=== PATIENT | male | born 1955 | race Caucasian/White ===

== ENCOUNTER 2020-06-01 09:02 | Outpatient (REF) | payer OTHER, SELFPAY ==
[2020-06-01 12:40] LABS: Alanine Aminotransferase 39 U/L (0-40); Albumin Level 4.2 g/dL (3.5-5.0); Alkaline Phosphatase 119 U/L (39-117); Anion Gap 12 (12-20); Aspartate Amino Transferase 32 U/L (5-37); Bilirubin Total 0.6 mg/dL (0.0-1.0); Blood Urea Nitrogen 26 mg/dL (9-16); Calcium 9.1 mg/dL (8.4-10.2); Carbon Dioxide 29 mmol/L (22-29); Chloride 102 mmol/L (96-108); Cholesterol 175 mg/dL; Estimated Glomerular Filt Rate 57; Glucose Fasting 228 mg/dL (60-99); HDL Cholesterol 33 mg/dL; Potassium 4.2 mmol/l (3.3-5.1); Sodium 139 mmol/L (135-145); TSH reflex Free T4 1.25 mIU/mL (0.32-4.0); Total Protein 6.8 g/dL (6.5-8.0); Triglycerides 449 mg/dL
[2020-06-01 12:50] LABS: Creatinine Urine 146.41 mg/dL; Microalbum/Creatinine Ratio Ur 314.8 ug/mg cr
== END 2020-06-01 09:03 | disposition home or self-care (01) ==
LOC: HO.WFDLDS 09:02
PROVIDERS: Visit Provider Internal Medicine
DX: Z00.00 Encounter for general adult medical examination without abnormal findings (principal); I12.9 Hypertensive chronic kidney disease with stage 1 through stage 4 chronic kidney disease, or unspecified chronic kidney disease; E11.22 Type 2 diabetes mellitus with diabetic chronic kidney disease; N18.30 Chronic kidney disease, stage 3 unspecified; E78.5 Hyperlipidemia, unspecified; K75.81 Nonalcoholic steatohepatitis (NASH)
CPT/HCPCS: 80053; 80061; 82043; 84443

== ENCOUNTER 2020-08-30 08:26 | Outpatient (REF) | payer OTHER, SELFPAY ==
[2020-08-30 11:35] LABS: Anion Gap 15 (12-20); Blood Urea Nitrogen 29 mg/dL (9-16); Calcium 9.4 mg/dL (8.4-10.2); Carbon Dioxide 26 mmol/L (22-29); Chloride 100 mmol/L (96-108); Cholesterol 171 mg/dL; Estimated Glomerular Filt Rate 54; Glucose Fasting 192 mg/dL (60-99); HDL Cholesterol 33 mg/dL; LDL Cholesterol Calculated 76 mg/dl; Potassium 3.8 mmol/L (3.3-5.1); Sodium 137 mmol/L (135-145); Triglycerides 310 mg/dL
== END 2020-08-30 08:27 | disposition home or self-care (01) ==
LOC: HO.WFDLDS 08:26
PROVIDERS: Visit Provider Family Medicine
DX: Z00.00 Encounter for general adult medical examination without abnormal findings (principal); E11.9 Type 2 diabetes mellitus without complications
CPT/HCPCS: 36415; 80048; 80061

== ENCOUNTER 2020-09-04 10:50 | Outpatient (REF) | payer OTHER, SELFPAY ==
[2020-09-04 11:41] LABS: Creatinine Urine 224.28 mg/dL; Microalbum/Creatinine Ratio Ur 161.8 ug/mg cr
== END 2020-09-04 10:51 | disposition home or self-care (01) ==
LOC: HO.LNP 10:50
PROVIDERS: Visit Provider Family Medicine
DX: E11.9 Type 2 diabetes mellitus without complications (principal); I10 Essential (primary) hypertension
CPT/HCPCS: 82043

== ENCOUNTER 2020-11-24 08:26 | Outpatient (REF) | payer OTHER, SELFPAY ==
[2020-11-24 11:48] LABS: Alanine Aminotransferase 52 U/L (0-40); Albumin Level 4.3 g/dL (3.5-5.0); Alkaline Phosphatase 85 U/L (39-117); Anion Gap 13 (12-20); Aspartate Amino Transferase 39 U/L (5-37); Bilirubin Total 0.5 mg/dL (0.0-1.0); Blood Urea Nitrogen 32 mg/dL (9-16); Calcium 9.6 mg/dL (8.4-10.2); Carbon Dioxide 27 mmol/L (22-29); Chloride 103 mmol/L (96-108); Cholesterol 155 mg/dL; Estimated Glomerular Filt Rate 54; Glucose Random 164 mg/dL (60-115); HDL Cholesterol 30 mg/dL; LDL Cholesterol Calculated 73 mg/dl; Sodium 139 mmol/L (135-145); Total Protein 6.7 g/dL (6.5-8.0); Triglycerides 262 mg/dL
== END 2020-11-24 08:27 | disposition home or self-care (01) ==
LOC: HO.WFDLDS 08:26
PROVIDERS: Visit Provider Family Medicine
DX: Z00.00 Encounter for general adult medical examination without abnormal findings (principal); I10 Essential (primary) hypertension; E78.1 Pure hyperglyceridemia
CPT/HCPCS: 36415; 80053; 80061

== ENCOUNTER 2021-02-23 07:48 | Outpatient (REF) | payer OTHER, SELFPAY ==
[2021-02-23 12:14] LABS: Alanine Aminotransferase 51 U/L (0-40); Albumin Level 4.5 g/dL (3.5-5.0); Alkaline Phosphatase 88 U/L (39-117); Anion Gap 15 (12-20); Aspartate Amino Transferase 43 U/L (5-37); Bilirubin Total 0.6 mg/dL (0.0-1.0); Blood Urea Nitrogen 31 mg/dL (9-16); Calcium 10.2 mg/dL (8.4-10.2); Carbon Dioxide 26 mmol/L (22-29); Chloride 103 mmol/L (96-108); Cholesterol 168 mg/dL; Estimated Glomerular Filt Rate 46; Glucose Fasting 164 mg/dL (60-99); HDL Cholesterol 31 mg/dL; LDL Cholesterol Calculated 77 mg/dl; Potassium 4.7 mmol/L (3.3-5.1); Sodium 139 mmol/L (135-145); Total Protein 7.2 g/dL (6.5-8.0); Triglycerides 304 mg/dL
== END 2021-02-23 07:49 | disposition home or self-care (01) ==
LOC: HO.WFDLDS 07:48
PROVIDERS: Visit Provider Family Medicine
DX: Z00.00 Encounter for general adult medical examination without abnormal findings (principal); E78.1 Pure hyperglyceridemia; E11.9 Type 2 diabetes mellitus without complications
CPT/HCPCS: 36415; 80053; 80061

== ENCOUNTER 2021-05-28 08:05 | Outpatient (REF) | payer OTHER, SELFPAY ==
[2021-05-28 12:44] LABS: Anion Gap 18 (12-20); Blood Urea Nitrogen 57 mg/dL (9-16); Calcium 9.8 mg/dL (8.4-10.2); Carbon Dioxide 23 mmol/L (22-29); Chloride 102 mmol/L (96-108); Estimated Glomerular Filt Rate 38; Glucose Random 129 mg/dL (60-115); Potassium 4.1 mmol/L (3.3-5.1); Sodium 139 mmol/L (135-145)
== END 2021-05-28 08:06 | disposition home or self-care (01) ==
LOC: HO.WFDLDS 08:05
PROVIDERS: Visit Provider Family Medicine
DX: Z00.00 Encounter for general adult medical examination without abnormal findings (principal); I10 Essential (primary) hypertension
CPT/HCPCS: 36415; 80048

== ENCOUNTER 2021-07-02 09:45 | Outpatient (REF) | payer OTHER, SELFPAY ==
[2021-07-02 12:14] LABS: Anion Gap 15 (12-20); Blood Urea Nitrogen 40 mg/dL (9-16); Calcium 10.2 mg/dL (8.4-10.2); Carbon Dioxide 24 mmol/L (22-29); Chloride 102 mmol/L (96-108); Estimated Glomerular Filt Rate 37; Glucose Random 135 mg/dL (60-115); Sodium 137 mmol/L (135-145)
== END 2021-07-02 09:46 | disposition home or self-care (01) ==
LOC: HO.WFDLDS 09:45
PROVIDERS: Visit Provider Family Medicine
DX: Z00.00 Encounter for general adult medical examination without abnormal findings (principal); I10 Essential (primary) hypertension
CPT/HCPCS: 36415; 80048

== ENCOUNTER 2021-07-16 08:14 | Outpatient (REF) | payer OTHER, SELFPAY ==
[2021-07-16 11:36] LABS: Anion Gap 11 (12-20); Blood Urea Nitrogen 33 mg/dL (9-16); Carbon Dioxide 27 mmol/L (22-29); Chloride 104 mmol/L (96-108); Estimated Glomerular Filt Rate 42; Glucose Random 175 mg/dL (60-115); Potassium 4.3 mmol/L (3.3-5.1); Sodium 138 mmol/L (135-145)
== END 2021-07-16 08:15 | disposition home or self-care (01) ==
LOC: HO.WFDLDS 08:14
PROVIDERS: Visit Provider Family Medicine
DX: Z00.00 Encounter for general adult medical examination without abnormal findings (principal); I10 Essential (primary) hypertension
CPT/HCPCS: 36415; 80048

== ENCOUNTER 2021-09-06 08:42 | Outpatient (REF) | payer OTHER, SELFPAY ==
[2021-09-06 11:04] LABS: Alanine Aminotransferase 21 U/L (0-40); Albumin Level 4.1 g/dL (3.5-5.0); Alkaline Phosphatase 91 U/L (39-117); Anion Gap 10 (12-20); Aspartate Amino Transferase 21 U/L (5-37); Bilirubin Total 0.5 mg/dL (0.0-1.0); Blood Urea Nitrogen 25 mg/dL (9-16); Calcium 9.6 mg/dL (8.4-10.2); Carbon Dioxide 26 mmol/L (22-29); Chloride 104 mmol/L (96-108); Estimated Glomerular Filt Rate 49; Glucose Fasting 143 mg/dL (60-99); Potassium 4.4 mmol/L (3.3-5.1); Sodium 136 mmol/L (135-145); Total Protein 6.7 g/dL (6.5-8.0)
[2021-09-06 11:05] LABS: Estimated Average Glucose 146 mg/dL; Hemoglobin A1c % 6.7 %
== END 2021-09-06 08:43 | disposition home or self-care (01) ==
LOC: HO.WFDLDS 08:42
PROVIDERS: Visit Provider Family Medicine
DX: Z00.00 Encounter for general adult medical examination without abnormal findings (principal); N19 Unspecified kidney failure; E11.9 Type 2 diabetes mellitus without complications
CPT/HCPCS: 36415; 80053; 83036

== ENCOUNTER 2021-12-07 07:11 | Outpatient (REF) | payer OTHER, SELFPAY ==
[2021-12-07 11:48] LABS: Alanine Aminotransferase 49 U/L (0-40); Albumin Level 4.2 g/dL (3.5-5.0); Alkaline Phosphatase 104 U/L (39-117); Anion Gap 11 (12-20); Aspartate Amino Transferase 35 U/L (5-37); Bilirubin Total 0.6 mg/dL (0.0-1.0); Blood Urea Nitrogen 25 mg/dL (9-16); Calcium 9.6 mg/dL (8.4-10.2); Carbon Dioxide 23 mmol/L (22-29); Chloride 108 mmol/L (96-108); Estimated Glomerular Filt Rate 47; Glucose Fasting 115 mg/dL (60-99); Potassium 4.3 mmol/L (3.3-5.1); Sodium 138 mmol/L (135-145); Total Protein 6.8 g/dL (6.5-8.0)
[2021-12-07 12:02] LABS: Estimated Average Glucose 146 mg/dL; Hemoglobin A1c % 6.7 %
[2021-12-07 13:02] LABS: Creatinine Urine 186.05 mg/dL; Microalbum/Creatinine Ratio Ur 139.2 ug/mg cr
[2021-12-11 05:52] LABS: TS Negative Control Passed; TS Panel A 0; TS Panel B 0; TS Positive Control Passed; TSpotTB Negative (Negative)
== END 2021-12-07 07:12 | disposition home or self-care (01) ==
LOC: HO.WFDLDS 07:11
PROVIDERS: Visit Provider Family Medicine
DX: Z00.00 Encounter for general adult medical examination without abnormal findings (principal); Z11.1 Encounter for screening for respiratory tuberculosis; E11.9 Type 2 diabetes mellitus without complications; I10 Essential (primary) hypertension
CPT/HCPCS: 36415; 80053; 82043; 83036; 86481

== ENCOUNTER 2022-04-08 09:07 | Outpatient (REF) | payer OTHER, SELFPAY ==
[2022-04-08 11:16] LABS: MANUAL DIFF FLAG NO
[2022-04-08 11:36] LABS: Basophils Percent Auto 0.8 % (0-2); Eosinophils Absolute Auto 0.3 X10*3/uL (0.0-0.4); Eosinophils Percent Auto 5.9 % (0-4); Hematocrit 46.3 % (42.0-52.0); Hemoglobin 15.2 g/dl (14.0-18.0); Imm Gran Abs Auto 0.02 X10*3/uL (0.00-0.03); Imm Gran Pct Auto 0.4 % (0.0-0.4); Lymphocytes Percent Auto 20.5 % (20-40); Mean Corpuscular HGB Conc 32.8 g/dl (31.0-36.0); Mean Corpuscular Hemoglobin 29.5 pg (27.0-33.0); Mean Corpuscular Volume 89.9 fL (80.0-98.0); Mean Platelet Volume 11.3 fL (9.4-12.4); Monocytes Absolute Auto 0.4 X10*3/uL (0.1-1.2); Monocytes Percent Auto 7.9 % (2-11); Neutrophils Absolute Auto 3.3 x10*3/uL (2.0-8.3); Neutrophils Percent Auto 64.5 % (45-73); Platelet Count 163 X10*3/uL (160-400); Red Blood Count 5.15 X10*6/uL (4.60-5.80); Red Cell Distribution Width 13.9 % (11.0-16.0); White Blood Count 5.1 X10*3/uL (4.8-10.8)
[2022-04-08 11:45] LABS: Alanine Aminotransferase 30 U/L (0-40); Albumin Level 4.4 g/dL (3.5-5.0); Alkaline Phosphatase 108 U/L (39-117); Anion Gap 15 (12-20); Aspartate Amino Transferase 27 U/L (5-37); Bilirubin Total 0.7 mg/dL (0.0-1.0); Blood Urea Nitrogen 24 mg/dL (9-16); Calcium 9.7 mg/dL (8.4-10.2); Carbon Dioxide 24 mmol/L (22-29); Chloride 106 mmol/L (96-108); Cholesterol 166 mg/dL; Estimated Glomerular Filt Rate 47; Glucose Fasting 134 mg/dL (60-99); HDL Cholesterol 30 mg/dL; LDL Cholesterol Calculated 113 mg/dl; Potassium 4.7 mmol/L (3.3-5.1); Sodium 140 mmol/L (135-145); Total Protein 6.9 g/dL (6.5-8.0); Triglycerides 118 mg/dL
[2022-04-08 12:08] LABS: Prostate Specific Antigen Scr 2.81 ng/mL (<0.05-4.0); TSH reflex Free T4 0.57 uIU/mL (0.32-4.0)
[2022-04-08 12:15] LABS: Appearance Urine Clear; Color Urine Yellow; Glucose Urine UA Negative (Negative); Leukocyte Esterase Urine Moderate (2+) (Negative); Nitrite Urine Negative (Negative); PH 6.5 (5.0-9.0); UMIC TRIGGER UA YES; Urine Blood Trace (Negative); Urine Ketones Negative (Negative); Urine Protein 30 (1+) mg/dL (Neg-Trace)
[2022-04-08 12:22] LABS: Bacteria Urine 3+ (None Seen); Hyaline Casts Urine 0-2 /LPF (0-2); RBC Urine 0-2 /HPF (0-2); Squamous Epithelial Cell Urine 0-2 /HPF (0-2); WBC Urine 21-50 /HPF (0-5)
[2022-04-08 12:48] LABS: Creatinine Urine 150.09 mg/dL; Microalbum/Creatinine Ratio Ur 206.5 ug/mg cr
[2022-04-11 15:36] LABS: TS Negative Control Passed; TS Panel A 0; TS Panel B 0; TS Positive Control Passed; TSpotTB Negative (Negative)
== END 2022-04-08 09:08 | disposition home or self-care (01) ==
LOC: HO.WFDLDS 09:07
PROVIDERS: Visit Provider Family Medicine
DX: Z00.00 Encounter for general adult medical examination without abnormal findings (principal); Z12.5 Encounter for screening for malignant neoplasm of prostate; Z11.1 Encounter for screening for respiratory tuberculosis; I10 Essential (primary) hypertension
CPT/HCPCS: 36415; 80053; 80061; 81001; 81003; 82043; 84153; 84443; 85025; 86481

== ENCOUNTER 2022-07-12 09:33 | Outpatient (REF) | payer OTHER, SELFPAY ==
[2022-07-12 10:35] LABS: Appearance Urine Clear; Color Urine Yellow; Glucose Urine UA 100 mg/dL (Negative); Leukocyte Esterase Urine Moderate (2+) (Negative); Nitrite Urine Positive (Negative); PH 6.5 (5.0-9.0); UMIC TRIGGER UA YES; Urine Blood Negative (Negative); Urine Ketones Negative (Negative); Urine Protein 100 (2+) mg/dL (Neg-Trace)
[2022-07-12 10:46] LABS: Bacteria Urine 1+ (None Seen); Hyaline Casts Urine 0-2 /LPF (0-2); RBC Urine 0-2 /HPF (0-2); Squamous Epithelial Cell Urine 0-2 /HPF (0-2); WBC Urine >50 /HPF (0-5)
[2022-07-12 12:05] LABS: Creatinine Urine 179.02 mg/dL
[2022-07-12 12:18] LABS: Microalbum/Creatinine Ratio Ur 350.7 ug/mg cr
[2022-07-12 14:40] LABS: Alanine Aminotransferase 30 U/L (0-40); Albumin Level 4.5 g/dL (3.5-5.0); Alkaline Phosphatase 127 U/L (39-117); Anion Gap 13 (12-20); Aspartate Amino Transferase 24 U/L (5-37); Bilirubin Total 0.5 mg/dL (0.0-1.0); Blood Urea Nitrogen 25 mg/dL (9-16); Calcium 9.9 mg/dL (8.4-10.2); Carbon Dioxide 26 mmol/L (22-29); Chloride 107 mmol/L (96-108); Estimated Glomerular Filt Rate 46; Glucose Random 135 mg/dL (60-115); Potassium 4.7 mmol/L (3.3-5.1); Sodium 141 mmol/L (135-145); Total Protein 7.1 g/dL (6.5-8.0)
== END 2022-07-12 09:34 | disposition home or self-care (01) ==
LOC: HO.LAB 09:33
PROVIDERS: PCP Family Medicine; Visit Provider Family Medicine
DX: I10 Essential (primary) hypertension (principal); N19 Unspecified kidney failure
CPT/HCPCS: 36415; 80053; 81001; 82043

== ENCOUNTER 2022-10-11 08:58 | Outpatient (REF) | payer OTHER, SELFPAY ==
[2022-10-11 12:20] LABS: Estimated Average Glucose 192 mg/dL; Hemoglobin A1c % 8.3 %
[2022-10-11 12:59] LABS: Alanine Aminotransferase 53 U/L (0-40); Albumin Level 4.2 g/dL (3.5-5.0); Alkaline Phosphatase 122 U/L (39-117); Anion Gap 12 (12-20); Aspartate Amino Transferase 36 U/L (5-37); Bilirubin Total 0.8 mg/dL (0.0-1.0); Blood Urea Nitrogen 27 mg/dL (9-16); Calcium 9.4 mg/dL (8.4-10.2); Carbon Dioxide 26 mmol/L (22-29); Chloride 106 mmol/L (96-108); Estimated Glomerular Filt Rate 44; Glucose Fasting 193 mg/dL (60-99); Potassium 4.8 mmol/L (3.3-5.1); Sodium 139 mmol/L (135-145); Total Protein 6.5 g/dL (6.5-8.0)
== END 2022-10-11 08:59 | disposition home or self-care (01) ==
LOC: HO.WFDLDS 08:58
PROVIDERS: Visit Provider Family Medicine
DX: Z00.00 Encounter for general adult medical examination without abnormal findings (principal); E11.9 Type 2 diabetes mellitus without complications
CPT/HCPCS: 36415; 80053; 83036

== ENCOUNTER 2023-01-17 09:06 | Outpatient (REF) | payer OTHER, SELFPAY | END 2023-01-17 09:07 | disposition home or self-care (01) | LOC: HO.WFDLDS 09:06 | PROVIDERS: Visit Provider Family Medicine | DX: N19 Unspecified kidney failure (principal) | CPT/HCPCS: 36415; 80053 ==

== ENCOUNTER 2023-01-24 08:26 | Outpatient (AMB) | payer OTHER, SELFPAY ==
--- NOTE | 2023-01-24 08:35 | MHC.PC.OV ---
Vital Signs 01/24/23 08:37 Height 6 ft 1 in Weight 220 lb 2 oz BMI 29.0 BP 130/76 Blood Pressure Location Lt brachial Position Sitting Pulse 76 Pulse Source Pulse Oximeter Pulse Oximetry (%) 98 Oxygen Delivery Method Room Air Intake Visit Reasons: Follow-up diabetes and renal failure Intake Note: Patient is here for follow up on diabetes and renal failure. Allergies No Known Allergies Allergy (Verified 01/24/23 08:38) Tobacco use date assessed: 01/24/23 Fall risk assessment: No Falls in past year Last assessed Fall Risk: 01/24/23 Dental Screening Dental Screen Date: 01/24/23 Did you have a dental visit in the last 12 months?: Yes Did you have a dental problem in the last 6 months where you did not have access to dental care?: No Was dental information given to patient?: No HPI Follow-up diabetes and renal failure HPI Details 67 y/o male presents to f/u hypertension, diabetes and renal failure. Last A1c 10/14/22 7.6%. A1c today 01/24/23 is 7.8%. He is on Trulicity 1.5mg, glipizide 20mg, and metformin 500mg b.i.d. Labs were drawn 01/17/23. Reviewed labs with pt. Creatinine level 1.41 and had improved from 1.56. Pt states he gets some exercise and watches the sugars/starches in his diet. [facility] Surgical History History of kidney stones Family History Father Heart problem Mother No problems noted. Brother No problems noted. Brother No problems noted. Son No problems noted. Sister No problems noted. Social History Housing: House Patient Tobacco Use Status: Never used Tobacco e-Cigarette/Vaping Use: Never Used Second Hand Smoke Exposure: No service: No Current occupational status: retired Current occupational exposures/hazards: No Cognitive needs: No Hearing needs: No Vision needs: No Questionnaire Thrive Questionnaire Date Thrive assessed: 07/16/22 FREDI-7 AMB Questionnaire FREDI-7 Date FREDI - 7 assessed: 01/03/23 Source: Developed by Drs. Satinder Gaffney, Kristi Cedeno, Ryan Austin and colleagues, with an educational milagros from [employer]. Review of Systems Const Denies chills, Denies fatigue, Denies fever(s), Denies headache(s) and Denies weakness ENT Denies dizziness and Denies headache(s) Card Denies chest pain, Denies lightheadedness, Denies dyspnea and Denies other (Palpitations) Resp Denies cough, Denies dyspnea, Denies wheezing and Denies other ( shortness of breath) Musc Denies numbness and Denies tingling Neuro Denies dizziness, Denies headache(s), Denies numbness, Denies tingling, Denies paresthesias and Denies weakness Psych Denies anxiety and Denies depression Endo Denies fatigue Aller/Immun Denies wheezing Physical exam (Primary Care) Vital Signs: Last Vital Signs Pulse 76 01/24/23 08:37 BP 130/76 01/24/23 08:37 Pulse Ox 98 01/24/23 08:37 Oxygen Delivery Method Room Air 01/24/23 08:37 BMI result Body Mass Index 29.0 Tobacco/Smoking Status: Tobacco use Status Tobacco use date assessed 01/24/23 01/24/23 08:40 Patient Tobacco Use Status Never used Tobacco 01/24/23 08:37 e-Cigarette/Vaping Use Never Used 01/24/23 08:37 Thrive Assessment: Date of Thrive Assessment Date Thrive assessed 07/16/22 01/24/23 08:37 Const General: no acute distress and well developed Nutritional Appearance: well nourished Orientation/consciousness: patient oriented x3 [facility] Head: Yes normocephalic and Yes atraumatic Eyes General: appearance normal, both eyes and all related structures Pupils: Equal, round and reactive pupils present EOM: EOMs intact bilaterally Resp Effort & Inspection: normal respiratory effort Auscultation: clear to auscultation bilaterally Cardio Rate: regular rate Rhythm: regular rhythm Heart sounds: S1 normal heart sound present, S2 normal heart sound present, no gallops, no murmurs and no rubs Neuro General: patient oriented x3 and gait normal Cranial nerves: Yes Equal, round and reactive pupils present Psych Affect: normal affect Results AMB Hemoglobin A1c AMB Hemoglobin A1c 7.8 % Last Edit by Marielos Castro CMA on 01/24/23 08:52 Results Reviewed Results Reviewed: Laboratory Last Values Hgb A1c (Clinic) 7.8 % (4.0-6.0) H 01/24/23 08:49 Assessment and Plan Assessment & Plan (1) Essential hypertension: Code(s): I10 - Essential (primary) hypertension Plan: Blood pressure is controlled. Goal is less than 140/90 Continue current medication regimen (2) Diabetes type 2, controlled: Code(s): E11.9 - Type 2 diabetes mellitus without complications Plan: A1c 7.8% is still above goal. Goal is less than 7.0% Have been decreasing his metformin due to rising creatinine levels. Had increased his Trulicity. Now taking 4.5 mg weekly Will add Farxiga. (3) Renal failure: Code(s): N19 - Unspecified kidney failure Plan: Creatinine level improving Renal function appears stable and he is followed by Nephrology Follow-up with nephrology as recommended Orders: Orders Comprehensive [place]. Panel Fast Today Z00.00 - Encounter for general adult medical examination without abnormal findings Lipid Panel Today Z00.00 - Encounter for general adult medical examination without abnormal findings Prostate Specific Antigen Scr Today Z12.5 - Encounter for screening for malignant neoplasm of prostate TSH reflex Free T4 Today Z00.00 - Encounter for general adult medical examination without abnormal findings Microalbumin, Random (w Creat) Today I10 - Essential (primary) hypertension Complete Blood Count Auto Diff Today Z00.00 - Encounter for general adult medical examination without abnormal findings UA and rflx microscopic Today Z00.00 - Encounter for general adult medical examination without abnormal findings AMB Hemoglobin A1c Today Z13.9 - Encounter for screening, unspecified Medications: New dapagliflozin propanediol (Farxiga) 5 mg PO QAM 30 tabs 2RF 30 days Coding Level of Care Code Est Pt Level 4 (23518) Diagnoses Essential hypertension I10 Diabetes type 2, controlled E11.9 Renal failure N19
[2023-01-24 08:37] VITALS: BP 130/76; PULSE 76; O2SAT 98; BMI 29.0
== END 2023-01-24 09:09 | disposition home or self-care (01) ==
PROVIDERS: Visit Provider Family Medicine
DX: I10 Essential (primary) hypertension (principal); E11.9 Type 2 diabetes mellitus without complications; N19 Unspecified kidney failure; Z13.9 Encounter for screening, unspecified
CPT/HCPCS: 83036; 99214

== ENCOUNTER 2023-04-24 08:35 | Outpatient (REF) | payer OTHER, SELFPAY ==
[2023-04-24 11:39] LABS: MANUAL DIFF FLAG NO
[2023-04-24 11:48] LABS: Appearance Urine Clear; Color Urine Yellow; Glucose Urine UA >=1000 mg/dL (Negative); Leukocyte Esterase Urine Small (1+) (Negative); Nitrite Urine Positive (Negative); Specific Gravity - Urine >= 1.030 (1.005-1.025); UMIC TRIGGER UA YES; Urine Blood Negative (Negative); Urine Ketones Negative (Negative); Urine Protein 30 (1+) mg/dL (Neg-Trace)
[2023-04-24 11:51] LABS: Basophils Percent Auto 0.7 % (0-2); Eosinophils Absolute Auto 0.2 X10*3/uL (0.0-0.4); Eosinophils Percent Auto 3.7 % (0-4); Hematocrit 48.3 % (42.0-52.0); Imm Gran Abs Auto 0.02 X10*3/uL (0.00-0.03); Imm Gran Pct Auto 0.4 % (0.0-0.4); Lymphocytes Absolute Auto 1.4 X10*3/uL (1.2-4.9); Lymphocytes Percent Auto 25.6 % (20-40); Mean Corpuscular HGB Conc 33.1 g/dl (31.0-36.0); Mean Corpuscular Hemoglobin 29.9 pg (27.0-33.0); Mean Corpuscular Volume 90.1 fL (80.0-98.0); Mean Platelet Volume 10.8 fL (9.4-12.4); Monocytes Absolute Auto 0.5 X10*3/uL (0.1-1.2); Monocytes Percent Auto 9.6 % (2-11); Neutrophils Absolute Auto 3.3 x10*3/uL (2.0-8.3); Platelet Count 166 X10*3/uL (160-400); Red Blood Count 5.36 X10*6/uL (4.60-5.80); Red Cell Distribution Width 13.6 % (11.0-16.0); White Blood Count 5.4 X10*3/uL (4.8-10.8)
[2023-04-24 11:53] LABS: Bacteria Urine 1+ (None Seen); Hyaline Casts Urine 0-2 /LPF (0-2); RBC Urine 0-2 /HPF (0-2); Squamous Epithelial Cell Urine 0-2 /HPF (0-2); WBC Urine 21-50 /HPF (0-5)
[2023-04-24 12:13] LABS: Alanine Aminotransferase 42 U/L (0-40); Albumin Level 4.4 g/dL (3.5-5.0); Alkaline Phosphatase 107 U/L (39-117); Anion Gap 15 (12-20); Aspartate Amino Transferase 33 U/L (5-37); Bilirubin Total 0.5 mg/dL (0.0-1.0); Blood Urea Nitrogen 27 mg/dL (9-16); Carbon Dioxide 23 mmol/L (22-29); Chloride 106 mmol/L (96-108); Cholesterol 161 mg/dL (<200); Estimated Glomerular Filt Rate 43; Glucose Fasting 138 mg/dL (60-99); HDL Cholesterol 30 mg/dL (>40); LDL Cholesterol Calculated 95 mg/dL (<100); Potassium 4.2 mmol/L (3.3-5.1); Sodium 140 mmol/L (135-145); Total Protein 7.4 g/dL (6.5-8.0); Triglycerides 180 mg/dL (<150)
[2023-04-24 12:23] LABS: Prostate Specific Antigen Scr 4.26 ng/mL (<0.05-4.0)
[2023-04-24 12:33] LABS: TSH reflex Free T4 1.37 uIU/mL (0.32-4.0)
[2023-04-24 13:23] LABS: Creatinine Urine 115.77 mg/dL; Microalbum/Creatinine Ratio Ur 205.5 ug/mg cr (<30)
== END 2023-04-24 08:36 | disposition home or self-care (01) ==
LOC: HO.WFDLDS 08:35
PROVIDERS: Visit Provider Family Medicine
DX: Z00.00 Encounter for general adult medical examination without abnormal findings (principal); I10 Essential (primary) hypertension; Z12.5 Encounter for screening for malignant neoplasm of prostate
CPT/HCPCS: 36415; 80053; 80061; 81001; 82043; 82570; 84153; 84443; 85025

== ENCOUNTER 2023-06-03 15:20 | Outpatient (REF) | payer OTHER, SELFPAY ==
[2023-06-04 12:13] LABS: Appearance Urine Clear; Color Urine Yellow; Glucose Urine UA >=1000 mg/dL (Negative); Leukocyte Esterase Urine Trace (Negative); Nitrite Urine Positive (Negative); Specific Gravity - Urine >= 1.030 (1.005-1.025); UMIC TRIGGER UA YES; Urine Blood Negative (Negative); Urine Ketones Negative (Negative); Urine Protein 30 (1+) mg/dL (Neg-Trace)
[2023-06-04 12:15] LABS: Bacteria Urine Trace (None Seen); Hyaline Casts Urine 0-2 /LPF (0-2); RBC Urine 0-2 /HPF (0-2); Squamous Epithelial Cell Urine 0-2 /HPF (0-2); WBC Urine 21-50 /HPF (0-5)
== END 2023-06-03 15:21 | disposition home or self-care (01) ==
LOC: HO.WFDLNP 15:20
PROVIDERS: Visit Provider Family Medicine
DX: R82.71 Bacteriuria (principal)
CPT/HCPCS: 81001; 81003; 87086; 87088; 87186

== ENCOUNTER 2023-06-30 09:49 | Outpatient (AMB) | payer OTHER, SELFPAY ==
--- NOTE | 2023-06-30 09:55 | HO.NEPHOV_ITS ---
HPI HPI Comments History of Present Illness Details I had the pleasure of seeing Mr Cote in follow-up of his chronic kidney disease stage 3. He has diabetes for close to 15 years. His hemoglobin A1c had been 7. Since he was started on Trulicity his hemoglobin A1c is getting better. He has hypertension for some time and has been on lisinopril. He has cut back sodium in the diet. He does not check his blood sugar daily. Has no history of significant proteinuria, neuropathy or retinopathy. He has history of nephrolithiasis (calcium oxalate). He is not taking nonsteroidal anti- inflammatory medications. He denies any history of coronary artery disease, chest pain, congestive heart failure, CVA or history of any prostate issues. He feels well. [facility] Medical History (Updated 06/30/23 @ 10:27 by Armin Mims MD) Chronic kidney disease, stage 3a Essential hypertension Surgical History History of kidney stones Family History Father Heart problem Mother No problems noted. Brother No problems noted. Brother No problems noted. Son No problems noted. Sister No problems noted. Social History Housing: House Patient Tobacco Use Status: Never used Tobacco e-Cigarette/Vaping Use: Never Used Second Hand Smoke Exposure: No service: No Current occupational status: retired Current occupational exposures/hazards: No Cognitive needs: No Hearing needs: No Vision needs: No Vital Signs 06/30/23 09:59 Height 6 ft 1 in Weight 215 lb 4 oz BMI 28.4 BP 122/80 Blood Pressure Location Lt brachial Position Sitting Pulse 83 Pulse Source Pulse Oximeter Pulse Oximetry (%) 97 Oxygen Delivery Method Room Air Physical Exam Vital Signs: Last Vital Signs Pulse 83 06/30/23 09:59 BP 122/80 06/30/23 09:59 Pulse Ox 97 06/30/23 09:59 Oxygen Delivery Method Room Air 06/30/23 09:59 BMI result Body Mass Index 28.4 Const General: comfortable and no acute distress Orientation/consciousness: patient oriented x3 HEENT Head: Yes normocephalic Mouth: Normal oral and palatal mucosa present Eyes EOM: EOMs intact bilaterally Neck Neck: Yes supple Resp Auscultation: clear to auscultation bilaterally Cardio Jugular venous distension: no JVD Rate: regular rate GI Palpation (GI): Soft to palpation Auscultation: normal bowel sounds General: Yes no CVA tenderness Back/Spine/Pelvis Back: no CVA tenderness Skin General skin exam: no rashes or lesions noted Neuro General: patient oriented x3 and moves all extremities Extrem General: Yes no pedal edema Assessment & Plan Assessment & Plan (1) Essential hypertension: Code(s): I10 - Essential (primary) hypertension (2) Chronic kidney disease, stage 3a: Code(s): N18.31 - Chronic kidney disease, stage 3a Plan Rene has 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 His serum creatinine is fairly stable. His hemoglobin A1c can be better. He can continue on the current dose of lisinopril. He is tolerating Farxiga well. His volume status is optimal. His blood pressure is at goal . He is on ZAY- inhibitor. He should be on a low-sodium diet. He should lose some weight. He should maintain very good hydration and avoid nonsteroidal anti-inflammatories. I did not make any medication changes today. All his questions and concerns were addressed. Follow-up lab work ordered. Follow-up given. Orders: Orders Electrolytes Today I10 - Essential (primary) hypertension, N18.31 - Chronic kidney disease, stage 3a Blood Urea Nitrogen Today I10 - Essential (primary) hypertension, N18.31 - Chronic kidney disease, stage 3a Creatinine Today I10 - Essential (primary) hypertension, N18.31 - Chronic kidney disease, stage 3a Protein Creatinine Ratio, Ur Today I10 - Essential (primary) hypertension, N18.31 - Chronic kidney disease, stage 3a Calcium Today I10 - Essential (primary) hypertension, N18.31 - Chronic kidney disease, stage 3a Hemoglobin A1c Today I10 - Essential (primary) hypertension, N18.31 - Chronic kidney disease, stage 3a Coding Level of Care Code Est Pt Level 3 (57289) Diagnoses Essential hypertension I10 Chronic kidney disease, stage 3a N18.31 Results Reviewed Nephrology Results: Hgb 16.0 g/dl (14.0-18.0) 04/24/23 WBC 5.4 X10*3/uL (4.8-10.8) 04/24/23 Plt Count 166 X10*3/uL (160-400) 04/24/23 Sodium 140 mmol/L (135-145) 04/24/23 Potassium 4.2 mmol/L (3.3-5.1) 04/24/23 Chloride 106 mmol/L (96-108) 04/24/23 Carbon Dioxide 23 mmol/L (22-29) 04/24/23 BUN 27 mg/dL (9-16) H 04/24/23 Creatinine 1.61 mg/dL (0.5-1.4) H 04/24/23 Calcium 10.0 mg/dL (8.4-10.2) 04/24/23 Urine Protein 30 (1+) mg/dL (Neg-Trace) H 06/03/23 Urine Creatinine 115.77 mg/dL 04/24/23
[2023-06-30 09:59] VITALS: BP 122/80; PULSE 83; O2SAT 97; BMI 28.4
== END 2023-06-30 10:31 | disposition home or self-care (01) ==
PROVIDERS: PCP Family Medicine; Visit Provider Internal Medicine Nephrology
DX: I10 Essential (primary) hypertension (principal); N18.31 Chronic kidney disease, stage 3a
CPT/HCPCS: 99213

== ENCOUNTER → 2023-06-30 09:49 | Outpatient (BNVA) | payer OTHER, SELFPAY | PROVIDERS: PCP Family Medicine; Visit Provider Internal Medicine Nephrology ==

== ENCOUNTER 2023-07-16 11:48 | Outpatient (AMB) | payer OTHER, SELFPAY ==
[2023-07-16 12:25] VITALS: BP 128/72; PULSE 82; O2SAT 96; BMI 28.4
--- NOTE | 2023-07-16 12:25 | MHC.PC.OV ---
Vital Signs 07/16/23 12:25 Height 6 ft 1 in Weight 215 lb BMI 28.4 BP 128/72 Blood Pressure Location Rt brachial Position Sitting Pulse 82 Pulse Source Pulse Oximeter Pulse Oximetry (%) 96 Oxygen Delivery Method Room Air Intake Visit Reasons: CPE with f/u labs and health maintenance Intake Note: Patient is here for his physical, and would like to talk about his medication. Allergies No Known Allergies Allergy (Verified 07/16/23 12:31) Tobacco use date assessed: 07/16/23 Fall risk assessment: No Falls in past year Last assessed Fall Risk: 07/16/23 HPI CPE with f/u labs and health maintenance HPI Details 67 y/o male presents for a CPE with f/u labs and health maintenance. Labs were drawn 04/24/23. Reviewed labs with pt. Creatinine level 1.61 mg/dL - CKD stage 3a. 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 Triglycerides 180. TC 161. LDL 95. HDL low at 30. PSA 4.26. A1c today 07/16/23 7.1%. Diabetic eye exam in September which was fine. Blood pressure today 128/72. He is on lisinopriol 10mg daily. Pt walks for exercise. [facility] Medical History (Updated 06/30/23 @ 10:27 by Armin Mims MD) Chronic kidney disease, stage 3a Essential hypertension Surgical History History of kidney stones Family History Father Heart problem Mother No problems noted. Brother No problems noted. Brother No problems noted. Son No problems noted. Sister No problems noted. Social History Housing: House Patient Tobacco Use Status: Never used Tobacco e-Cigarette/Vaping Use: Never Used Second Hand Smoke Exposure: No service: No Current occupational status: retired Current occupational exposures/hazards: No Cognitive needs: No Hearing needs: No Vision needs: No Questionnaire Thrive Questionnaire Date Thrive assessed: 07/16/22 FREDI-7 AMB Questionnaire FREDI-7 Date FREDI - 7 assessed: 07/16/22 Source: Developed by Drs. Satinder Gaffney, Kristi Cedeno, Ryan Austin and colleagues, with an educational milagros from [employer]. Review of Systems Const Denies chills, Denies fatigue, Denies fever(s), Denies headache(s) and Denies weakness Eyes Denies change in vision ENT Denies dizziness, Denies headache(s), Denies hearing loss, Denies nasal congestion, Denies sinus pain, Denies sinus pressure and Denies sore throat Card Denies chest pain, Denies lightheadedness, Denies dyspnea and Denies other (palpitations) Resp Denies cough, Denies dyspnea and Denies wheezing GI Denies abdominal pain, Denies melena, Denies hematochezia, Denies change in bowel habits, Denies dyspepsia and Denies nausea Denies hematuria and Denies dysuria Musc Denies abnormal gait, Denies myalgias, Denies arthralgias, Denies numbness and Denies tingling Skin/Breast Denies rash, Denies unusual bruising and Denies wounds Neuro Denies abnormal gait, Denies dizziness, Denies headache(s), Denies memory loss, Denies numbness, Denies Sensory deficit (Neuro), Denies tingling and Denies weakness Psych Denies anxiety, Denies depression and Denies memory loss Endo Denies cold intolerance, Denies fatigue, Denies heat intolerance, Denies polydipsia and Denies polyuria Bobby/Lymph Denies easy bleeding and Denies easy bruising Aller/Immun Denies wheezing Physical exam (Primary Care) Vital Signs: Last Vital Signs Pulse 82 07/16/23 12:25 BP 128/72 07/16/23 12:25 Pulse Ox 96 07/16/23 12:25 Oxygen Delivery Method Room Air 07/16/23 12:25 BMI result Body Mass Index 28.4 Tobacco/Smoking Status: Tobacco use Status Tobacco use date assessed 07/16/23 07/16/23 12:37 Patient Tobacco Use Status Never used Tobacco 07/16/23 12:28 e-Cigarette/Vaping Use Never Used 07/16/23 12:28 Thrive Assessment: Date of Thrive Assessment Date Thrive assessed 07/16/22 07/16/23 12:28 Const General: no acute distress, well developed, alert and awake Nutritional Appearance: well nourished Orientation/consciousness: patient oriented x3 HENMT Head: Yes normocephalic and Yes atraumatic Ears: hearing grossly normal bilaterally and TM's normal bilaterally General nose exam: Normal external nose present and Normal nares present Mouth: Normal oral and palatal mucosa present and moist mucous membranes Teeth and gingiva: dentition normal Throat: Yes posterior oropharynx normal Eyes General: appearance normal, both eyes and all related structures Pupils: Equal, round and reactive pupils present and Pupil accommodation reflex normal EOM: EOMs intact bilaterally Neck Neck: Yes normal visual inspection, Yes no lymphadenopathy and Yes trachea midline Thyroid: Thyroid normal Carotids: no bruits Lymphatic: no lymphadenopathy noted Chest Chest palpation & inspection: normal inspection of the chest Resp Effort & Inspection: normal respiratory effort Auscultation: clear to auscultation bilaterally Cardio Rate: regular rate Rhythm: regular rhythm Heart sounds: S1 normal heart sound present, S2 normal heart sound present, no gallops, no murmurs and no rubs Bruits: no abdominal aortic bruits and no carotid bruits GI Palpation (GI): No Abdominal aortic bruit present, Soft to palpation, nontender, No hepatosplenomegaly present and No Rebound tenderness present Auscultation: normal bowel sounds General: Yes no CVA tenderness Back/Spine/Pelvis Back: no CVA tenderness Cervical Spine: cervical ROM normal and No Cervical spine tenderness Thoracic/Lumbar Spine: thoraco-lumbar ROM normal, No pain with thoraco-lumbar ROM, No thoracic spinal tenderness and No lumbar spinal tenderness Skin Lesions: no lesions Rashes: no rashes Trauma: no lacerations or abrasions Wounds: no wounds Nails: normal Neuro General: patient oriented x3 Cranial nerves: Yes Equal, round and reactive pupils present Cognition (Neuro): normal cognition Gait exam (Neuro): Normal gait present Motor exam (neuro): 5/5 motor strength present throughout Sensory Exam: No Sensory deficit (Neuro) Deep tendon reflexes (DTR's): Right patellar reflex intensity grade: 2+ and Left patellar reflex intensity grade: 2+ Extrem General: Yes normal to inspection and No edema Psych Appearance: grossly normal Affect: normal affect Attitude: cooperative Thought process: Normal thought process present Results AMB Hemoglobin A1c AMB Hemoglobin A1c 7.1 % Last Edit by Marielos Castro CMA on 07/16/23 12:47 Results Reviewed Results Reviewed: Laboratory Last Values Hgb A1c (Clinic) 7.1 % (4.0-6.0) H 07/16/23 12:41 Assessment and Plan Assessment & Plan (1) Adult general medical exam: Code(s): Z00.00 - Encounter for general adult medical examination without abnormal findings Plan: 67-year-old?male?presents?for?complete?physical?exam Encouraged?healthy?diet?with?active?lifestyle?plenty?of?exercise (2) Essential hypertension: Code(s): I10 - Essential (primary) hypertension Plan: Blood?pressure?is?controlled Continue?current?medication (3) Chronic kidney disease, stage 3a: Code(s): N18.31 - Chronic kidney disease, stage 3a Plan: Stable Continue?control?of?blood?pressure,?blood?sugar?and?lipids.??Avoid?NSAIDs?and?salt/sodium. Follow-up?with?nephrology?as?recommended (4) Elevated PSA: Code(s): R97.20 - Elevated prostate specific antigen [PSA] Plan: Patient?had?had?a?significant?increase?in?his?PSA?level?but?had?also?had?urine?suspicious?for?a?UTI. He?has?no?symptoms Repeat Urine?and?PSA?level (5) Hypertriglyceridemia: Code(s): E78.1 - Pure hyperglyceridemia Plan: TC?and?LDL?are?controlled?on?pravastatin Continue?to?work?at?a?diet?low?in?saturated?fats?and?cholesterol (6) Diabetes type 2, controlled: Code(s): E11.9 - Type 2 diabetes mellitus without complications Plan: A1c?7.1%. He?notes?he?has?not?been?able?to?get?his?Trulicity?in?the?past?couple?of?weeks?but?is?scheduled?to?pick?it?up?today. Continue?current?medication?regimen (7) Screening for colon cancer: Code(s): Z12.11 - Encounter for screening for malignant neoplasm of colon Plan: Patient?had?a?colonoscopy?in?2017?with?. Colonoscopy?showed?some?small?polyps?and?it?was?recommended?he?follow-up?in?5?years. Referred?back?to? (8) Screening for prostate cancer: Code(s): Z12.5 - Encounter for screening for malignant neoplasm of prostate Plan: PSA?elevated Will?recheck?this. If?still?elevated?will?refer?him?to?urology (9) Low HDL (under 40): Code(s): E78.6 - Lipoprotein deficiency Plan: Encouraged?exercise Orders: Orders AMB Hemoglobin A1c Today Z13.9 - Encounter for screening, unspecified UA and rflx microscopic Today Z00.00 - Encounter for general adult medical examination without abnormal findings Prostate Specific Antigen Scr Today Z12.5 - Encounter for screening for malignant neoplasm of prostate Referrals Gastroenterology Referral K63.5 - Polyp of colon, Z12.11 - Encounter for screening for malignant neoplasm of colon Medications: Changed From dapagliflozin propanediol (Farxiga) 5 mg PO QAM 30 days 30 tabs 2RF To dapagliflozin propanediol (Farxiga) 5 mg PO QAM 90 days 90 tabs 3RF Coding Level of Care Code Est Pt Level 3 (46979) Est Pt Prev Care >65y(16166) Diagnoses Adult general medical exam Z00.00 Essential hypertension I10 Chronic kidney disease, stage 3a N18.31 Elevated PSA R97.20 Hypertriglyceridemia E78.1 Diabetes type 2, controlled E11.9 Screening for colon cancer Z12.11 Screening for prostate cancer Z12.5 Low HDL (under 40) E78.6
== END 2023-07-16 13:31 | disposition home or self-care (01) ==
PROVIDERS: PCP Family Medicine; Visit Provider Family Medicine
DX: Z00.00 Encounter for general adult medical examination without abnormal findings (principal); I12.9 Hypertensive chronic kidney disease with stage 1 through stage 4 chronic kidney disease, or unspecified chronic kidney disease; E11.22 Type 2 diabetes mellitus with diabetic chronic kidney disease; N18.31 Chronic kidney disease, stage 3a; E78.1 Pure hyperglyceridemia; R97.20 Elevated prostate specific antigen [PSA]; E78.6 Lipoprotein deficiency
CPT/HCPCS: 83036; 99213; 99397

== ENCOUNTER 2023-07-16 13:34 | Outpatient (REF) | payer OTHER, SELFPAY | END 2023-07-16 13:35 | disposition home or self-care (01) | LOC: HO.LAB 13:34 | PROVIDERS: Visit Provider Family Medicine | DX: Z00.00 Encounter for general adult medical examination without abnormal findings (principal) | CPT/HCPCS: 81001 ==

== ENCOUNTER 2023-10-20 10:28 | Outpatient (REF) | payer OTHER, SELFPAY ==
[2023-10-20 11:38] LABS: Appearance Urine Clear; Color Urine Yellow; Glucose Urine UA >=1000 mg/dL (Negative); Leukocyte Esterase Urine Trace (Negative); Nitrite Urine Positive (Negative); PH 6.5 (5.0-9.0); Specific Gravity - Urine >= 1.030 (1.005-1.025); UMIC TRIGGER UA YES; Urine Blood Negative (Negative); Urine Ketones Negative (Negative); Urine Protein 30 (1+) mg/dL (Neg-Trace)
[2023-10-20 11:50] LABS: Bacteria Urine 4+ (None Seen); Hyaline Casts Urine 0-2 /LPF (0-2); RBC Urine 0-2 /HPF (0-2); Squamous Epithelial Cell Urine 0-2 /HPF (0-2); WBC Urine >50 /HPF (0-5)
[2023-10-20 12:26] LABS: Estimated Average Glucose 174 mg/dL; Hemoglobin A1c % 7.7 % (<6.0)
[2023-10-20 12:47] LABS: Anion Gap 12 (12-20); Blood Urea Nitrogen 25 mg/dL (9-16); Carbon Dioxide 25 mmol/L (22-29); Chloride 108 mmol/L (96-108); Creatinine Urine 98.01 mg/dL; Estimated Glomerular Filt Rate 45; Potassium 4.2 mmol/L (3.3-5.1); Protein/Creatinine Ratio, Ur 0.43 (<0.2); Sodium 141 mmol/L (135-145); Total Protein Urine Random 42 mg/dL (<12)
[2023-10-20 13:01] LABS: Prostate Specific Antigen Scr 3.42 ng/mL (<0.05-4.0)
== END 2023-10-20 10:29 | disposition home or self-care (01) ==
LOC: HO.WFDLDS 10:28
PROVIDERS: Internal Medicine Nephrology; Visit Provider Family Medicine
DX: Z12.5 Encounter for screening for malignant neoplasm of prostate (principal); I12.0 Hypertensive chronic kidney disease with stage 5 chronic kidney disease or end stage renal disease; N18.31 Chronic kidney disease, stage 3a
CPT/HCPCS: 36415; 80051; 81001; 82310; 82565; 82570; 83036; 84153; 84156; 84520

== ENCOUNTER 2023-10-22 08:23 | Outpatient (AMB) | payer OTHER, SELFPAY ==
--- NOTE | 2023-10-22 08:24 | A.OFFPC_ITS ---
Vital Signs 10/22/23 08:28 Height 6 ft 1 in Weight 216 lb BMI 28.5 BP 110/64 Blood Pressure Location Lt brachial Position Sitting Respiration 13 Pulse 89 Pulse Source Pulse Oximeter Pulse Oximetry (%) 99 Oxygen Delivery Method Room Air Intake Visit Reasons: f/u diabetes Intake Note: Patient is here for a diabetic follow up. Patients last A1C was drawn on 10.20.23. Patient reports he needs a refill for trulicity written for 90 days. Patient reports he has a dentist appointment for tooth extraction and he would like to know if he should take the antibiotic from the dentist along with Macrobid. Soap Inspector Required: No Accompanied by: Self / Same As Patient Allergies No Known Allergies Allergy (Verified 10/22/23 08:35) Medication List - Last Reconciled 10/22/23 by Jim Beavers MD allopurinol 300 mg PO DAILY 90 days cholecalciferol (vitamin D3) 25 mcg PO DAILY 90 days dapagliflozin propanediol (Farxiga) 5 mg PO QAM 90 days dulaglutide (Trulicity) 4.5 mg (0.5 mL) subcut QWEEK 28 days gemfibrozil 600 mg PO BID glipizide ER 20 mg (2 x 10 mg) PO QAM 90 days lisinopril 10 mg (1/2 x 20 mg) PO DAILY 90 days metformin 500 mg PO BID 90 days nitrofurantoin monohyd/m-cryst 100 mg (Macrobid) 100 mg PO Q12H 10 days pravastatin 20 mg PO DAILY 90 days Tobacco use date assessed: 07/16/23 Dental Screening Dental Screen Date: 01/24/23 HPI f/u diabetes HPI Details Patient?presents?to?follow- up?diabetes,?elevated?PSA?level?and?bacteriuria/UTI A1c?has?risen?to?7.7%.??He?notes?that?he?has?not?been?able?to?get?his?Trulicity? on?time?and?probably?was?missing?about?a?month?worth?of?this?medication. Working?on?a?diabetic?diet Exercising?regularly PSA?level?had?been?greater?than?4?and?repeat?is?improved. Went?from?4.26-3.42. Urine?suspicious?for?UTI.??H ad?sent?a?script?for?nitrofurantoin.??However,?patient?has?not?started?it?yet?be cause?his?dentist?gave?him?a?script?for?amoxicillin?due?to?a?dental?infection. Urine?culture?shows?resistance?to?penicillins. [facility] Medical History (Updated 06/30/23 @ 10:27 by Armin Mims MD) Chronic kidney disease, stage 3a Essential hypertension Surgical History History of kidney stones Family History Father Heart problem Mother No problems noted. Brother No problems noted. Brother No problems noted. Son No problems noted. Sister No problems noted. Social History Housing: House Patient Tobacco Use Status: Never used Tobacco e-Cigarette/Vaping Use: Never Used Second Hand Smoke Exposure: No service: No Current occupational status: retired Current occupational exposures/hazards: No Cognitive needs: No Hearing needs: No Vision needs: No Questionnaire PHQ-9 Over the last 2 weeks, how often have you been bothered by any of the following problems? 1. Little interest or pleasure in doing things: not at all 2. Feeling down, depressed, or hopeless: not at all 3. Trouble falling or staying asleep, or sleeping too much: not at all 4. Feeling tired or having little energy: not at all 5. Poor appetite or overeating: not at all 6. Feeling bad about yourself - or that you are a failure or have let yourself or your family down: not at all 7. Trouble concentrating on things, such as reading the newspaper or watching television: not at all 8. Moving or speaking so slowly that other people could have noticed. Or the opposite - being so fidgety or restless that you have been moving around a lot more than usual: not at all 9. Thoughts that you would be better off or of hurting yourself in some way: not at all Total score: 0 Depression Screening Interpretation: Negative Depression Screening Done: Yes 57735 - PHQ-9 Billing: Yes Source: Developed by Drs. Satinder Gaffney, Kristi Cedeno, Ryan Austin and colleagues, with an educational milagros from [employer]. Thrive Questionnaire Date Thrive assessed: 10/22/23 I am a: Patient What is your living situation today?: I have a steady place to live Within the past 12 months, did the food you bought not last and you didn't have the money to get more?: Never true Within the past 12 months, did you worry whether your food would run out before you got money to buy more?: Never true Do you have trouble paying for medicines?: No Do you have trouble getting transportation to medical appointments?: No Do you have trouble paying your heating and electricity bill?: No Do you have trouble taking care of your child, family member or friend?: No Do you have trouble with day-to-day activities such as bathing, preparing meals, shopping, managing finances, etc.?: No Are you currently unemployed and looking for a job?: No Are you interested in more education?: No Please select the resources that you would like help with: None Currently or been in a relationship where the following occur: no concerns reported THRIVE Score: 0 AUDIT C Alcohol Use Questionnaire (AUDIT-C) 1. How often do you have a drink containing alcohol?: Monthly or less 2. How many drinks containing alcohol do you have on a typical day when you are drinking?: 1 or 2 3. How often do you have six or more drinks on one occasion?: Never Total Score: 1 FREDI-7 AMB Questionnaire FREDI-7 Date FREDI - 7 assessed: 10/22/23 Feeling nervous, anxious, or on edge: 0 = Not at all Not being able to stop or control worryin = Not at all Worrying too much about different things: 0 = Not at all Trouble relaxin = Not at all Being so restless that it is hard to sit still: 0 = Not at all Becoming easily annoyed or irritable: 0 = Not at all Feeling afraid as if something awful might happen: 0 = Not at all Total FREDI-7 score (0-4 normal; 5-9 mild; 10-14 moderate; 15-21 severe): 0 Source: Developed by Drs. Satinder L. GulshanKristi silver, Ryan Austin and colleagues, with an educational milagros from [employer]. FREDI-7 Assessment Billing FREDI-7 Assessment Tool: FREDI-7 Assessment 09225 Review of Systems Const Denies chills, Denies fatigue, Denies fever(s), Denies headache(s) and Denies weakness ENT Denies dizziness and Denies headache(s) Card Denies chest pain, Denies lightheadedness, Denies dyspnea and Denies other (Palpitations) Resp Denies cough, Denies dyspnea, Denies wheezing and Denies other ( shortness of breath) Musc Denies numbness and Denies tingling Neuro Denies dizziness, Denies headache(s), Denies numbness, Denies tingling, Denies paresthesias and Denies weakness Psych Denies anxiety and Denies depression Endo Denies fatigue Aller/Immun Denies wheezing Physical exam (Primary Care) Vital Signs: Last Vital Signs Pulse 89 10/22/23 08:28 Resp 13 10/22/23 08:28 BP 110/64 10/22/23 08:28 Pulse Ox 99 10/22/23 08:28 Oxygen Delivery Method Room Air 10/22/23 08:28 BMI result Body Mass Index 28.5 Tobacco/Smoking Status: Tobacco use Status Tobacco use date assessed 07/16/23 10/22/23 08:25 Patient Tobacco Use Status Never used Tobacco 10/22/23 08:25 e-Cigarette/Vaping Use Never Used 10/22/23 08:25 PHQ-9: PHQ-9 Score PHQ-9: Total score 0 10/22/23 08:36 Depression Screening Interpretation: Negative Thrive Assessment: Date of Thrive Assessment Date Thrive assessed 10/22/23 10/22/23 08:36 Currently or been in a relationship where the following occur: no concerns reported Const General: no acute distress and well developed Nutritional Appearance: well nourished Orientation/consciousness: patient oriented x3 HENMT Head: Yes normocephalic and Yes atraumatic Eyes General: appearance normal, both eyes and all related structures Pupils: Equal, round and reactive pupils present EOM: EOMs intact bilaterally Resp Effort & Inspection: normal respiratory effort Auscultation: clear to auscultation bilaterally Cardio Rate: regular rate Rhythm: regular rhythm Heart sounds: S1 normal heart sound present, S2 normal heart sound present, no gallops, no murmurs and no rubs Neuro General: patient oriented x3 and gait normal Cranial nerves: Yes Equal, round and reactive pupils present Psych Affect: normal affect Assessment and Plan Assessment & Plan (1) Diabetes type 2, controlled: Code(s): E11.9 - Type 2 diabetes mellitus without complications Plan: A1c?increased?to?7.7% He?has?had?interruptions?in?his?Trulicity?but?now?has?this?medication.??I?have?r ecent?it?as?90?day?prescriptions?as?well. Continue?exercise Continue?diabetic?diet He?has?issues?with?his?renal?function?so?we?are?trying?not?to?increase?his?metfo rmin.??However,?we?discussed?that?if?he?has?interruptions?in?his?Trulicity?he?ca n?increase?his?metformin?to?750?mg?b.i.d.?temporarily. Eye?exam?was?last?week.??Awaiting?note. (2) Bacteriuria: Code(s): R82.71 - Bacteriuria Plan: Bacteriuria?verses?UTI. Recommended?Macrobid.??May?be?contamination?as?the?bacteria?is?Staph?epidermidis ?however?I?recommend?he?take?this?medication Cultures?ange wed?resistance?to?amoxicillin?which?he?is?taking?for?a?dental?infection. (3) Screening for prostate cancer: Code(s): Z12.5 - Encounter for screening for malignant neoplasm of prostate Plan: PSA?has?decreased He?is?asymptomatic Will?continue?to?follow (4) Renal failure: Code(s): N19 - Unspecified kidney failure Plan: Renal?function?is?at?baseline?of?about?1.5 Avoiding?NSAIDs Avoiding?increasing?metformin?and?relying?more?on?Trulicity?and?glipizide. However,?we?did?say?that?as?his?renal?function?is?at?baseline?1.5?creatinine,?he ?could?temporarily?increase?this?if?there?is?an?interruption?in?his?Trulicity. Coding Level of Care Code Est Pt Level 4 (73297) Diagnoses Diabetes type 2, controlled E11.9 Bacteriuria R82.71 Screening for prostate cancer Z12.5 Renal failure N19 Additional Codes FREDI-7 Assessment Billing - FREDI-7 Assessment Tool: FREDI-7 Assessment [id number] ([id number])
[2023-10-22 08:28] VITALS: BP 110/64; PULSE 89; RESP 13; O2SAT 99; BMI 28.5
== END 2023-10-22 09:07 | disposition home or self-care (01) ==
PROVIDERS: PCP Family Medicine; Visit Provider Family Medicine
DX: E11.9 Type 2 diabetes mellitus without complications (principal); R82.71 Bacteriuria; Z12.5 Encounter for screening for malignant neoplasm of prostate; N19 Unspecified kidney failure
CPT/HCPCS: 99214

== ENCOUNTER 2023-11-14 09:28 | Outpatient (AMB) | payer OTHER, SELFPAY ==
[2023-11-14 09:40] VITALS: BP 100/70; PULSE 74; O2SAT 98; BMI 28.5
--- NOTE | 2023-11-14 09:40 | HO.NEPHOV ---
Vital Signs 11/14/23 09:40 Height 6 ft 1 in Weight 216 lb 4 oz BMI 28.5 BP 100/70 Blood Pressure Location Lt brachial Position Sitting Pulse 74 Pulse Source Pulse Oximeter Pulse Oximetry (%) 98 Oxygen Delivery Method Room Air Intake Visit Reasons: 4M follow up/ LVM [employer] Required: No Accompanied by: Self / Same As Patient Allergies No Known Allergies Allergy (Verified 11/14/23 09:42) HPI Comments Details: I had the pleasure of seeing Mr Cote in follow-up of his chronic kidney disease stage 3. He has diabetes for close to 15 years. His hemoglobin A1c had been 7.6. When he was started on Trulicity his hemoglobin A1c was getting better. He has hypertension for some time and has been on lisinopril. He has cut back sodium in the diet. He does not check his blood sugar daily. Has no history of significant proteinuria, neuropathy or retinopathy. He has history of nephrolithiasis (calcium oxalate). He is not taking nonsteroidal anti-inflammatory medications. He denies any history of coronary artery disease, chest pain, congestive heart failure, CVA or history of any prostate issues. He feels well. [facility] Medical History (Updated 06/30/23 @ 10:27 by Arimn Mims MD) Chronic kidney disease, stage 3a Essential hypertension Surgical History History of kidney stones Family History Father Heart problem Mother No problems noted. Brother No problems noted. Brother No problems noted. Son No problems noted. Sister No problems noted. Social History Housing: House Patient Tobacco Use Status: Never used Tobacco e-Cigarette/Vaping Use: Never Used Second Hand Smoke Exposure: No service: No Current occupational status: retired Current occupational exposures/hazards: No Cognitive needs: No Hearing needs: No Vision needs: No Physical Exam Vital Signs: Last Vital Signs Pulse 74 11/14/23 09:40 BP 100/70 11/14/23 09:40 Pulse Ox 98 11/14/23 09:40 Oxygen Delivery Method Room Air 11/14/23 09:40 BMI result Body Mass Index 28.5 Const General: comfortable and no acute distress Orientation/consciousness: patient oriented x3 HEENT Head: Yes normocephalic Mouth: Normal oral and palatal mucosa present Eyes EOM: EOMs intact bilaterally Neck Neck: Yes supple Resp Auscultation: clear to auscultation bilaterally Cardio Jugular venous distension: no JVD Rate: regular rate GI Palpation (GI): Soft to palpation Auscultation: normal bowel sounds General: Yes no CVA tenderness Back/Spine/Pelvis Back: no CVA tenderness Skin General skin exam: no rashes or lesions noted Neuro General: patient oriented x3 and moves all extremities Extrem General: Yes no pedal edema Results Reviewed Nephrology Results: Hgb 16.0 g/dl (14.0-18.0) 04/24/23 WBC 5.4 X10*3/uL (4.8-10.8) 04/24/23 Plt Count 166 X10*3/uL (160-400) 04/24/23 Sodium 141 mmol/L (135-145) 10/20/23 Potassium 4.2 mmol/L (3.3-5.1) 10/20/23 Chloride 108 mmol/L (96-108) 10/20/23 Carbon Dioxide 25 mmol/L (22-29) 10/20/23 BUN 25 mg/dL (9-16) H 10/20/23 Creatinine 1.54 mg/dL (0.5-1.4) H 10/20/23 Calcium 10.0 mg/dL (8.4-10.2) 10/20/23 Urine Protein 30 (1+) mg/dL (Neg-Trace) H 10/20/23 Urine Creatinine 98.01 mg/dL 10/20/23 Protein/Creatinin Ratio 0.43 (<0.2) H 10/20/23 Assessment & Plan Assessment & Plan (1) Chronic kidney disease, stage 3a: Code(s): N18.31 - Chronic kidney disease, stage 3a Category: Medical (2) Essential hypertension: Code(s): I10 - Essential (primary) hypertension Category: Medical Plan Rene has 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 His serum creatinine is fairly stable. His hemoglobin A1c can be better. He can continue on the current dose of lisinopril. He is tolerating Farxiga well. His volume status is optimal. His blood pressure is at goal . He is on ZAY-inhibitor. He should be on a low-sodium diet. He should lose some weight. He should maintain very good hydration and avoid nonsteroidal anti-inflammatories. I did not make any medication changes today. All his questions and concerns were addressed. Follow-up lab work ordered. Follow-up given. Orders: Orders Blood Urea Nitrogen Today I10 - Essential (primary) hypertension, N18.31 - Chronic kidney disease, stage 3a Creatinine Today I10 - Essential (primary) hypertension, N18.31 - Chronic kidney disease, stage 3a Electrolytes Today I10 - Essential (primary) hypertension, N18.31 - Chronic kidney disease, stage 3a Calcium Today I10 - Essential (primary) hypertension, N18.31 - Chronic kidney disease, stage 3a Protein Creatinine Ratio, Ur Today I10 - Essential (primary) hypertension, N18.31 - Chronic kidney disease, stage 3a Coding Level of Care Code Est Pt Level 4 (05144) Diagnoses Chronic kidney disease, stage 3a N18.31 Essential hypertension I10
== END 2023-11-14 10:08 | disposition home or self-care (01) ==
PROVIDERS: PCP Family Medicine; Visit Provider Internal Medicine Nephrology
DX: N18.31 Chronic kidney disease, stage 3a (principal); I10 Essential (primary) hypertension
CPT/HCPCS: 99214

== ENCOUNTER → 2023-11-14 09:28 | Outpatient (BNVA) | payer OTHER, SELFPAY | PROVIDERS: PCP Family Medicine; Visit Provider Internal Medicine Nephrology ==

== ENCOUNTER 2024-03-02 07:48 | Outpatient (REF) | payer OTHER, SELFPAY ==
[2024-03-02 11:23] LABS: Appearance Urine Clear; Color Urine Yellow; Glucose Urine UA >=1000 mg/dL (Negative); Leukocyte Esterase Urine Trace (Negative); Nitrite Urine Positive (Negative); PH 6.5 (5.0-9.0); Specific Gravity - Urine >= 1.030 (1.005-1.025); UMIC TRIGGER UA YES; Urine Blood Negative (Negative); Urine Ketones Negative (Negative); Urine Protein 30 (1+) mg/dL (Neg-Trace)
[2024-03-02 11:31] LABS: Bacteria Urine Trace (None Seen); Hyaline Casts Urine 0-2 /LPF (0-2); RBC Urine 0-2 /HPF (0-2); Squamous Epithelial Cell Urine 0-2 /HPF (0-2); WBC Urine 21-50 /HPF (0-5)
[2024-03-02 11:47] LABS: Anion Gap 13 (12-20); Blood Urea Nitrogen 29 mg/dL (9-16); Calcium 9.8 mg/dL (8.4-10.2); Carbon Dioxide 26 mmol/L (22-29); Chloride 107 mmol/L (96-108); Estimated Glomerular Filt Rate 49; Potassium 4.3 mmol/L (3.3-5.1); Sodium 142 mmol/L (135-145)
[2024-03-02 11:55] LABS: Creatinine Urine 82.14 mg/dL; Total Protein Urine Random 33 mg/dL (<12)
[2024-03-02 12:15] LABS: Prostate Specific Antigen Scr 3.87 ng/mL (<0.05-4.0)
== END 2024-03-02 07:49 | disposition home or self-care (01) ==
LOC: HO.WFDLDS 07:48
PROVIDERS: Referring Provider Internal Medicine Nephrology; Visit Provider Family Medicine
DX: Z00.00 Encounter for general adult medical examination without abnormal findings (principal); Z12.5 Encounter for screening for malignant neoplasm of prostate; I12.9 Hypertensive chronic kidney disease with stage 1 through stage 4 chronic kidney disease, or unspecified chronic kidney disease; N18.31 Chronic kidney disease, stage 3a; R97.20 Elevated prostate specific antigen [PSA]
CPT/HCPCS: 36415; 80051; 81001; 82310; 82565; 82570; 84153; 84156; 84520

== ENCOUNTER 2024-03-04 08:21 | Outpatient (AMB) | payer OTHER, SELFPAY ==
--- NOTE | 2024-03-04 08:35 | MHC.PC.OV ---
Vital Signs 03/04/24 08:38 Height 6 ft 1 in Weight 221 lb BMI 29.2 BP 120/70 Blood Pressure Location Rt brachial Position Sitting Respiration 12 Pulse 75 Pulse Source Pulse Oximeter Temp 96.9 F Temp Source Tympanic Pulse Oximetry (%) 97 Oxygen Delivery Method Room Air Intake Visit Reasons: f/u diabetes Intake Note: follow up for DM Allergies No Known Allergies Allergy (Verified 03/04/24 08:36) Tobacco use date assessed: 07/16/23 Dental Screening Dental Screen Date: 01/24/23 HPI f/u diabetes HPI Details 68 y/o male presents to f/u diabetes. Had a significant increase in his A1c last office visit but had an interruption in Trulicity x1 month. Last A1c 7.7%. A1c today 03/04/24 is 8.5%. He is on metformin 500mg b.i.d, glipizide 20mg, Trulicity 4.5mg. Pt notes he continues to have difficulty with obtaining Trulicity. He notes his is able to get ozempic and she has the same insurance. Blood pressure today 120/70. He is on lisinopril 10mg daily. Kidney function improved from 1.54 to 1.42 from labs drawn in February. [facility] Medical History (Updated 06/30/23 @ 10:27 by Armin Mims MD) Chronic kidney disease, stage 3a Essential hypertension Surgical History History of kidney stones Family History Father Heart problem Mother No problems noted. Brother No problems noted. Brother No problems noted. Son No problems noted. Sister No problems noted. Social History Housing: House Patient Tobacco Use Status: Never used Tobacco e-Cigarette/Vaping Use: Never Used Second Hand Smoke Exposure: No service: No Current occupational status: retired Current occupational exposures/hazards: No Cognitive needs: No Hearing needs: No Vision needs: No Questionnaire Thrive Questionnaire Date Thrive assessed: 10/22/23 FREDI-7 AMB Questionnaire FREDI-7 Date FREDI - 7 assessed: 10/22/23 Source: Developed by Drs. Satinder Gaffney, Kristi Cedeno, Ryan Austin and colleagues, with an educational milagros from [employer]. Review of Systems Const Denies chills, Denies fatigue, Denies fever(s), Denies headache(s) and Denies weakness ENT Denies dizziness and Denies headache(s) Card Denies dyspnea Resp Denies cough, Denies dyspnea, Denies wheezing and Denies other (shortness of breath) Musc Denies numbness and Denies tingling Neuro Denies dizziness, Denies headache(s), Denies numbness, Denies tingling and Denies weakness Psych Denies anxiety and Denies depression Endo Denies fatigue Aller/Immun Denies wheezing Physical exam (Primary Care) Vital Signs: Last Vital Signs Temp 96.9 F 03/04/24 08:38 Pulse 75 03/04/24 08:38 Resp 12 03/04/24 08:38 BP 120/70 03/04/24 08:38 Pulse Ox 97 03/04/24 08:38 Oxygen Delivery Method Room Air 03/04/24 08:38 BMI result Body Mass Index 29.2 Tobacco/Smoking Status: Tobacco use Status Tobacco use date assessed 07/16/23 03/04/24 08:41 Patient Tobacco Use Status Never used Tobacco 03/04/24 08:41 e-Cigarette/Vaping Use Never Used 03/04/24 08:41 Thrive Assessment: Date of Thrive Assessment Date Thrive assessed 10/22/23 03/04/24 08:41 Const General: well developed; No acute distress Nutritional Appearance: well nourished Orientation/consciousness: patient oriented x3 HENMT Head: Yes normocephalic and Yes atraumatic Eyes General: appearance normal, both eyes and all related structures Pupils: Equal, round and reactive pupils present EOM: EOMs intact bilaterally Resp Effort & Inspection: normal respiratory effort Auscultation: clear to auscultation bilaterally Cardio Rate: regular rate Rhythm: regular rhythm Heart sounds: S1 normal heart sound present, S2 normal heart sound present, no gallops, no murmurs and no rubs Neuro General: patient oriented x3 and gait normal Cranial nerves: Yes Equal, round and reactive pupils present Psych Affect: normal affect Assessment and Plan Assessment & Plan (1) Diabetes type 2, controlled: Code(s): E11.9 - Type 2 diabetes mellitus without complications Plan: A1c?has?risen?to?8.5%. He?notes?he?still?has?not?been?able?to?get?Trulicity His??has?the?same?insurance?and?goes?to?the?same?pharmacy?and?is?on?Ozempic.??Will?switch?to?Ozempic. Continue?Farxiga,?metformin?and?glipizide Renal?function?continues?to?improve?and?I?am?monitoring?this (2) Essential hypertension: Code(s): I10 - Essential (primary) hypertension Plan: Blood?pressure?is?controlled.??Goal?is?less?than?140/90 Continue?lisinopril (3) Chronic kidney disease, stage 3a: Code(s): N18.31 - Chronic kidney disease, stage 3a Plan: As?above,?renal?function?has?improved?with?decrease?in?metformin. Continuing?to?monitor?this Controlled?blood?pressure?and?blood?sugar Avoiding?NSAIDs Hydrate?well Orders: Orders AMB Hemoglobin A1c Today Z13.9 - Encounter for screening, unspecified Medications: New semaglutide (Ozempic) 1 mg (0.75 mL) subcut QWEEK 3 mL 3RF 28 days Changed From dapagliflozin propanediol 10 mg PO QAM 90 days 90 tabs 3RF To dapagliflozin propanediol 5 mg PO QAM 90 tabs 3RF 90 days From dapagliflozin propanediol (Farxiga) 5 mg PO QAM 90 days 90 tabs 3RF To dapagliflozin propanediol 10 mg PO QAM 90 days 90 tabs 3RF Discontinued dulaglutide (Trulicity) Discontinued Reason: Doctor's Order 4.5 mg (0.5 mL) subcut QWEEK 28 days 2 mL 3RF Coding Level of Care Code Est Pt Level 4 (35156) Diagnoses Diabetes type 2, controlled E11.9 Essential hypertension I10 Chronic kidney disease, stage 3a N18.31
[2024-03-04 08:38] VITALS: BP 120/70; PULSE 75; RESP 12; TEMP 36.1; O2SAT 97; BMI 29.2
== END 2024-03-04 09:08 | disposition home or self-care (01) ==
PROVIDERS: PCP Family Medicine; Visit Provider Family Medicine
DX: I12.9 Hypertensive chronic kidney disease with stage 1 through stage 4 chronic kidney disease, or unspecified chronic kidney disease (principal); E11.22 Type 2 diabetes mellitus with diabetic chronic kidney disease; N18.31 Chronic kidney disease, stage 3a
CPT/HCPCS: 99214

== ENCOUNTER 2024-05-14 09:15 | Outpatient (AMB) | payer OTHER, SELFPAY ==
[2024-05-14 09:24] VITALS: BP 114/70; PULSE 76; O2SAT 97; BMI 28.4
--- NOTE | 2024-05-14 09:24 | HO.NEPHOV ---
Vital Signs 05/14/24 09:24 Height 6 ft 1 in Weight 215 lb BMI 28.4 BP 114/70 Blood Pressure Location Lt brachial Position Sitting Pulse 76 Pulse Source Pulse Oximeter Pulse Oximetry (%) 97 Oxygen Delivery Method Room Air Intake Visit Reasons: Chronic kidney disease/ 4 MO [facility] Certified Adaptive Physical Educator Required: No Accompanied by: Self / Same As Patient Allergies No Known Allergies Allergy (Verified 05/14/24 09:24) HPI Comments Details: Mr Cote was seen in follow-up of his chronic kidney disease stage 3. He has diabetes for over 15 years. He is on Ozempic, metformin and Farxiga . He has hypertension and has been on lisinopril. He has cut back sodium in the diet. He does not check his blood sugar daily. Has no history of significant proteinuria, neuropathy or retinopathy. He has history of nephrolithiasis (calcium oxalate). He is not taking nonsteroidal anti-inflammatory medications. He denies any history of coronary artery disease, chest pain, congestive heart failure, CVA or history of any prostate issues. He feels well. [facility] Medical History (Updated 05/14/24 @ 09:51 by Armin Mims MD) Chronic kidney disease, stage 3a Essential hypertension Surgical History History of kidney stones Family History Father Heart problem Mother No problems noted. Brother No problems noted. Brother No problems noted. Son No problems noted. Sister No problems noted. Social History Housing: House Patient Tobacco Use Status: Never used Tobacco e-Cigarette/Vaping Use: Never Used Second Hand Smoke Exposure: No service: No Current occupational status: retired Current occupational exposures/hazards: No Cognitive needs: No Hearing needs: No Vision needs: No Review of Systems Const All systems reviewed & are unremarkable except as noted in HPI and below Physical Exam Vital Signs: Last Vital Signs Pulse 76 05/14/24 09:24 BP 114/70 05/14/24 09:24 Pulse Ox 97 05/14/24 09:24 Oxygen Delivery Method Room Air 05/14/24 09:24 BMI result Body Mass Index 28.4 Const General: comfortable and no acute distress Orientation/consciousness: patient oriented x3 HEENT Head: Yes normocephalic Mouth: Normal oral and palatal mucosa present Eyes EOM: EOMs intact bilaterally Neck Neck: Yes supple Resp Auscultation: clear to auscultation bilaterally Cardio Jugular venous distension: no JVD Rate: regular rate GI Palpation (GI): Soft to palpation Auscultation: normal bowel sounds General: Yes no CVA tenderness Back/Spine/Pelvis Back: no CVA tenderness Skin General skin exam: no rashes or lesions noted Neuro General: patient oriented x3 and moves all extremities Extrem General: Yes no pedal edema Results Reviewed Nephrology Results: Hgb 16.0 g/dl (14.0-18.0) 04/24/23 WBC 5.4 X10*3/uL (4.8-10.8) 04/24/23 Plt Count 166 X10*3/uL (160-400) 04/24/23 Sodium 142 mmol/L (135-145) 03/02/24 Potassium 4.3 mmol/L (3.3-5.1) 03/02/24 Chloride 107 mmol/L (96-108) 03/02/24 Carbon Dioxide 26 mmol/L (22-29) 03/02/24 BUN 29 mg/dL (9-16) H 03/02/24 Creatinine 1.42 mg/dL (0.5-1.4) H 03/02/24 Calcium 9.8 mg/dL (8.4-10.2) 03/02/24 Urine Protein 30 (1+) mg/dL (Neg-Trace) H 03/02/24 Urine Creatinine 82.14 mg/dL 03/02/24 Protein/Creatinin Ratio 0.40 (<0.2) H 03/02/24 Assessment & Plan Assessment & Plan (1) Chronic kidney disease, stage 3a: Code(s): N18.31 - Chronic kidney disease, stage 3a Category: Medical (2) Essential hypertension: Code(s): I10 - Essential (primary) hypertension Category: Medical (3) Proteinuria: Code(s): R80.9 - Proteinuria, unspecified Category: Medical Qualifiers: Proteinuria type: other Qualified Code(s): R80.8 - Other proteinuria Plan Rene has 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 His serum creatinine is fairly stable. His hemoglobin A1c can be better. He can continue on the current dose of lisinopril, which I may increase with time. He is tolerating Farxiga well. His volume status is optimal. His blood pressure is at goal . He should be on a low-sodium diet. He should lose some weight. He should maintain very good hydration and avoid nonsteroidal anti-inflammatories. I did not make any medication changes today. All his questions and concerns were addressed. Follow-up lab work ordered. Follow-up given Orders: Orders Electrolytes 6 Months N18.31 - Chronic kidney disease, stage 3a Creatinine 6 Months N18.31 - Chronic kidney disease, stage 3a Blood Urea Nitrogen 6 Months N18.31 - Chronic kidney disease, stage 3a Coding Level of Care Code Est Pt Level 4 (67716) Diagnoses Chronic kidney disease, stage 3a N18.31 Essential hypertension I10 Other proteinuria R80.8 Proteinuria type: other
== END 2024-05-14 09:54 | disposition home or self-care (01) ==
LOC: HO.HKA 09:16
PROVIDERS: PCP Family Medicine; Visit Provider Internal Medicine Nephrology
DX: I12.9 Hypertensive chronic kidney disease with stage 1 through stage 4 chronic kidney disease, or unspecified chronic kidney disease (principal); N18.31 Chronic kidney disease, stage 3a; R80.8 Other proteinuria
CPT/HCPCS: 99214

== ENCOUNTER → 2024-05-14 09:15 | Outpatient (BNVA) | payer OTHER, SELFPAY | PROVIDERS: PCP Family Medicine; Visit Provider Internal Medicine Nephrology ==

== ENCOUNTER 2024-06-04 10:51 | Outpatient (REF) | payer OTHER, SELFPAY ==
[2024-06-04 14:11] LABS: Appearance Urine Clear; Color Urine Yellow; Glucose Urine UA >=1000 mg/dL (Negative); Leukocyte Esterase Urine Small (1+) (Negative); Nitrite Urine Positive (Negative); Specific Gravity - Urine 1.025 (1.005-1.025); UMIC TRIGGER UA YES; Urine Blood Negative (Negative); Urine Ketones Negative (Negative); Urine Protein 30 (1+) mg/dL (Neg-Trace)
[2024-06-04 14:18] LABS: Bacteria Urine 1+ (None Seen); Hyaline Casts Urine 0-2 /LPF (0-2); RBC Urine 0-2 /HPF (0-2); Squamous Epithelial Cell Urine 0-2 /HPF (0-2); WBC Urine >50 /HPF (0-5)
[2024-06-04 14:37] LABS: Alanine Aminotransferase 19 U/L (0-40); Albumin Level 4.3 g/dL (3.5-5.0); Alkaline Phosphatase 112 U/L (39-117); Anion Gap 12 (12-20); Aspartate Amino Transferase 25 U/L (5-37); Bilirubin Total 0.4 mg/dL (0.0-1.0); Blood Urea Nitrogen 26 mg/dL (9-16); Calcium 9.9 mg/dL (8.4-10.2); Carbon Dioxide 24 mmol/L (22-29); Chloride 107 mmol/L (96-108); Estimated Glomerular Filt Rate 53; Glucose Fasting 99 mg/dL (60-99); Potassium 3.9 mmol/L (3.3-5.1); Sodium 139 mmol/L (135-145); Total Protein 6.8 g/dL (6.5-8.0)
[2024-06-04 14:49] LABS: Creatinine Urine 103.79 mg/dL; Microalbum/Creatinine Ratio Ur 137.7 ug/mg cr (<30)
== END 2024-06-04 10:52 | disposition home or self-care (01) ==
LOC: HO.WFDLDS 10:51
PROVIDERS: Visit Provider Family Medicine
DX: Z00.00 Encounter for general adult medical examination without abnormal findings (principal); I10 Essential (primary) hypertension; R82.71 Bacteriuria
CPT/HCPCS: 36415; 80053; 81001; 82043; 82570

== ENCOUNTER 2024-06-08 08:24 | Outpatient (AMB) | payer OTHER, SELFPAY ==
--- NOTE | 2024-06-08 08:33 | A.OFFPC_ITS ---
Vital Signs 06/08/24 08:39 Height 6 ft 1 in Weight 214 lb 4 oz BMI 28.3 BP 139/86 Blood Pressure Location Rt brachial Position Sitting Respiration 16 Pulse 77 Pulse Source Pulse Oximeter Temp 97.3 F Temp Source Temporal Artery Scan Pulse Oximetry (%) 97 Oxygen Delivery Method Room Air Intake Visit Reasons: f/u diabetes Intake Note: patient here for follow up on DM Netting Weaver Required: No Allergies No Known Allergies Allergy (Verified 06/08/24 08:37) Tobacco use date assessed: 06/08/24 Fall risk assessment: No Falls in past year Last assessed Fall Risk: 06/08/24 Dental Screening Dental Screen Date: 06/08/24 Did you have a dental visit in the last 12 months?: Yes Did you have a dental problem in the last 6 months where you did not have access to dental care?: No Was dental information given to patient?: Patient has dentist HPI f/u diabetes HPI Details 68 y/o male presents to f/u diabetes, hy pertension. Had switched him to ozempic. A1c improved to 7.0%. He is on metformin 500mg b.i.d, ozempic, glipizide 20mg He notes he had not been able to take ozempic x1 month. Up to date with diabetic eye exam. Blood pressure 139/86, 77p. He is on lisinopril 10mg. PSA 3.87 in February. Has complaints of hand pain. [facility] Medical History (Updated 06/08/24 @ 09:14 by John Gan) Chronic kidney disease, stage 3a Essential hypertension Surgical History History of kidney stones Family History Father Heart problem Mother No problems noted. Brother No problems noted. Brother No problems noted. Son No problems noted. Sister No problems noted. Social History Housing: House Patient Tobacco Use Status: Never used Tobacco e-Cigarette/Vaping Use: Never Used Second Hand Smoke Exposure: No service: No Current occupational status: retired Current occupational exposures/hazards: No Cognitive needs: No Hearing needs: No Vision needs: No Questionnaire PHQ-9 Over the last 2 weeks, how often have you been bothered by any of the following problems? 1. Little interest or pleasure in doing things: not at all 2. Feeling down, depressed, or hopeless: not at all 3. Trouble falling or staying asleep, or sleeping too much: not at all 4. Feeling tired or having little energy: not at all 5. Poor appetite or overeating: not at all 6. Feeling bad about yourself - or that you are a failure or have let yourself or your family down: not at all 7. Trouble concentrating on things, such as reading the newspaper or watching television: not at all 8. Moving or speaking so slowly that other people could have noticed. Or the opposite - being so fidgety or restless that you have been moving around a lot more than usual: not at all 9. Thoughts that you would be better off or of hurting yourself in some way: not at all Total score: 0 Source: Developed by Drs. Satinder Gaffney, Kristi Cedeno, Ryan Austin and colleagues, with an educational milagros from [employer]. Thrive Questionnaire Date Thrive assessed: 06/06/24 I am a: Patient What is your living situation today?: I have a steady place to live Within the past 12 months, did the food you bought not last and you didn't have the money to get more?: Never true Within the past 12 months, did you worry whether your food would run out before you got money to buy more?: Never true Do you have trouble paying for medicines?: No Do you have trouble getting transportation to medical appointments?: No Do you have trouble paying your heating and electricity bill?: No Do you have trouble taking care of your child, family member or friend?: No Do you have trouble with day-to-day activities such as bathing, preparing meals, shopping, managing finances, etc.?: No Are you currently unemployed and looking for a job?: No Are you interested in more education?: No Please select the resources that you would like help with: None Currently or been in a relationship where the following occur: No concerns reported THRIVE Score: 0 AUDIT C Alcohol Use Questionnaire (AUDIT-C) 1. How often do you have a drink containing alcohol?: Monthly or less 2. How many drinks containing alcohol do you have on a typical day when you are drinking?: 1 or 2 3. How often do you have six or more drinks on one occasion?: Never Total Score: 1 FREDI-7 AMB Questionnaire FREDI-7 Date FREDI - 7 assessed: 10/22/23 Feeling nervous, anxious, or on edge: 0 = Not at all Not being able to stop or control worryin = Not at all Worrying too much about different things: 0 = Not at all Trouble relaxin = Not at all Being so restless that it is hard to sit still: 0 = Not at all Becoming easily annoyed or irritable: 0 = Not at all Feeling afraid as if something awful might happen: 0 = Not at all Total FREDI-7 score (0-4 normal; 5-9 mild; 10-14 moderate; 15-21 severe): 0 Source: Developed by Drs. Satinder Gaffney, Kristi Cedeno, Ryan Austin and colleagues, with an educational milagros from [employer]. Review of Systems Const Denies chills, Denies fatigue, Denies fever(s), Denies headache(s) and Denies weakness ENT Denies dizziness and Denies headache(s) Card Denies dyspnea Resp Denies cough, Denies dyspnea, Denies wheezing and Denies other (shortness of breath) Musc Details: Hand pain Denies numbness and Denies tingling Neuro Denies dizziness, Denies headache(s), Denies numbness, Denies tingling and Denies weakness Psych Denies anxiety and Denies depression Endo Denies fatigue Aller/Immun Denies wheezing Physical exam (Primary Care) Vital Signs: Last Vital Signs Temp 97.3 F 06/08/24 08:39 Pulse 77 06/08/24 08:39 Resp 16 06/08/24 08:39 BP 139/86 06/08/24 08:39 Pulse Ox 97 06/08/24 08:39 Oxygen Delivery Method Room Air 06/08/24 08:39 BMI result Body Mass Index 28.3 Tobacco/Smoking Status: Tobacco use Status Tobacco use date assessed 06/08/24 06/08/24 08:41 Patient Tobacco Use Status Never used Tobacco 06/08/24 08:34 e-Cigarette/Vaping Use Never Used 06/08/24 08:34 PHQ-9: PHQ-9 Score PHQ-9: Total score 0 06/08/24 09:04 Thrive Assessment: Date of Thrive Assessment Date Thrive assessed 06/06/24 06/08/24 08:34 Currently or been in a relationship where the following occur: No concerns reported Const General: well developed; No acute distress Nutritional Appearance: well nourished Orientation/consciousness: patient oriented x3 HENMT Head: Yes normocephalic and Yes atraumatic Eyes General: appearance normal, both eyes and all related structures Pupils: Equal, round and reactive pupils present EOM: EOMs intact bilaterally Resp Effort & Inspection: normal respiratory effort Neuro General: patient oriented x3 and gait normal Cranial nerves: Yes Equal, round and reactive pupils present Psych Affect: normal affect Coding Level of Care Code Est Pt Level 4 (90662) Diagnoses Diabetes type 2, controlled E11.9 Elevated PSA R97.20 Essential hypertension I10 Hand pain M79.643 Assessment & Plan Assessment & Plan (1) Diabetes type 2, controlled: Code(s): E11.9 - Type 2 diabetes mellitus without complications Category: Medical Plan: A1c?is?much?improved.??Now?at?7.0% He?notes?that?he?was?not?able?to?get?Ozempic?for?a?full?3?months?so?may?not?yet? be?at?steady?state Continue?current?medication?regimen Eye?exam?in?September?showed?no?diabetic?complications.??Up-to-date (2) Elevated PSA: Code(s): R97.20 - Elevated prostate specific antigen [PSA] Category: Medical Plan: PSA?remains?below?4 Urinating?normally We?can?continue?screening?annually (3) Essential hypertension: Code(s): I10 - Essential (primary) hypertension Category: Medical Plan: Blood?pressure?is?co ntrolled?though?higher?than?usual.??He?notes?that?he?had?a?salty?meal?last?night Goal?is?less?than?140/90 Continue?current?medication Watch?salt/sodium (4) Hand pain: Code(s): M79.643 - Pain in unspecified hand Category: Medical Plan: Bilateral?hand?pain?and?also?left lateral?hip/gluteus?pain Likely?some?arthritis/tendinitis Can?use?OTC?Aspercreme?and heat Advised?gentle?stretching He?will?let?know?if?worsening Medications: Refilled metformin 500 mg PO BID 90 days 180 tabs 3RF
[2024-06-08 08:39] VITALS: BP 139/86; PULSE 77; RESP 16; TEMP 36.3; O2SAT 97; BMI 28.3
== END 2024-06-08 09:20 | disposition home or self-care (01) ==
PROVIDERS: PCP Family Medicine; Visit Provider Family Medicine
DX: E11.9 Type 2 diabetes mellitus without complications (principal); R97.20 Elevated prostate specific antigen [PSA]; I10 Essential (primary) hypertension; M79.643 Pain in unspecified hand

== ENCOUNTER → 2024-06-08 08:24 | Outpatient (BNVA) | payer OTHER, SELFPAY | PROVIDERS: PCP Family Medicine; Visit Provider Family Medicine ==

== ENCOUNTER 2024-08-27 16:16 | Outpatient (REF) | payer OTHER, SELFPAY ==
--- NOTE | ~2024-08-27 | CT_ITS ---
CLINICAL HISTORY: R31.9 - Hematuria, unspecified CT abdomen and pelvis without contrast Comparison: None Findings: The lung bases are clear. Gallbladder, liver, spleen, pancreas and left adrenal gland are unremarkable. There is a right adrenal nodule measuring up to 2 cm seen on image 17 of series 2 most consistent with a lipid rich adenoma. Nonobstructing stone in the lower pole of the right kidney measuring up to 13 mm. No hydronephrosis or right-sided ureteral stones. Simple appearing left renal cysts measuring up to 3.5 cm for which no specific follow-up necessary. Nonobstructing 16 mm stone in the upper pole of the left kidney. Additional punctate mid kidney stone. There is dilation of the left ureter to the level of the bladder but no discrete filling defect is identified. This could indicate a recently passed stone. No bowel obstruction, pneumoperitoneum, or pneumatosis. Sigmoid diverticulosis without diverticulitis. Normal appendix. Prostate is mildly enlarged. No filling defects within the thin-walled bladder. No fluid collections or adenopathy. Small fat containing bilateral inguinal hernias. No vascular dilation. No acute fracture. IMPRESSION: Bilateral nonobstructing renal stones as described. There is mild dilation of the left ureter without discrete stone. This could indicate a recently passed stone. No bladder stones. Benign-appearing left renal cysts. Lipid rich right adrenal adenoma. This document has been electronically signed by: Vaishali Quinn MD on 08/31/2024 09:13:16
--- OUTSIDE RECORDS SUMMARY | 2024-08-27 16:18 | XMS_ITS | Clinical Summary ---
Author Organization [facility] Address [address] [facility] [address] [place] [address] Phone Care Team Providers Care Nutrition Counselor Name Role Phone Jim Beavers MD Primary Care Provider [phone] Allergies No known active allergies Medications allopurinol (ZYLOPRIM) 300 MG tablet Take 300 mg by mouth 1 (one) time each day 07/27/2021 Active gemfibrozil (LOPID) 600 MG tablet Take 1 tablet by mouth 1 (one) time each day 09/03/2021 Active glipiZIDE (GLUCOTROL XL) 10 MG 24 hr tablet Take 20 mg by mouth every morning 06/20/2021 Active lisinopril 20 MG tablet Take 20 mg by mouth 1 (one) time each day 07/17/2021 Active pravastatin (PRAVACHOL) 20 MG tablet Take 20 mg by mouth 1 (one) time each day 06/25/2021 Active metFORMIN (GLUCOPHAGE) 500 MG tablet Take 500 mg by mouth in the morning and 500 mg in the evening. 06/13/2022 Active Trulicity 3 MG/0.5ML solution pen-injector Inject 0.5 mL under the skin 1 (one) time per week 03/28/2022 Active Active Problems Problem Noted Date Diagnosed Date Stage 3a chronic kidney disease 09/04/2021 Hypertension 09/04/2021 Renal calculus 09/04/2021 Acute kidney failure 09/03/2021 Essential (primary) hypertension 09/03/2021 Family History Medical History Relation Comments No Known Problems Brother Cancer Father Heart disease Father No Known Problems Mother Relation Status Comments Brother Father Mother Alive Social History Tobacco Use Types Packs/Day Years Used Date Smoking Tobacco: Never Smokeless Tobacco: Never Tobacco Cessation:Counseling Given: Not Answered Alcohol Use Standard Drinks/Week Comments Never 0 (1 standard drink = 0.6 oz pur e alcohol) Sex and Gender Information Value Date Recorded Sex Assigned at Not on file Legal Sex Male 5:19 PM EST Gender Identity Not on file Sexual Orientation Not on file Last Filed Vital Signs Vital Sign Reading Time Taken Comments Blood Pressure 122/82 12/26/2022 2:54 PM EDT Pulse 78 12/26/2022 2:54 PM EDT Temperature - - Respiratory Rate - - Oxygen Saturation - - Inhaled Oxygen Concentration - - Weight 99.9 kg (220 lb 3.2 oz) 12/26/2022 2:54 P M EDT Height - - Body Mass Index - - Plan of Treatment Health Maintenance Due Date Last Done Comments Pneumococcal Vaccine: 65+ Ye ars (1 of 2 - PCV) 1960 Colorectal Cancer Screening: Annual FOBT 2003 Colorectal Cancer Screening: Colonoscopy 2003 Colorectal Cancer Screening: Sigmoidoscopy 2003 Influenza Vaccine (#1) 2024 Hepatitis B Vaccine Aged Out No longe r eligible based on patient's age to complete this topic Insurance [facility] Care Teams Nutrition Counselor Relationship Specialty Start Date End Date Jim Beavers MD [address] [address] PCP - General Family Medicine 07/12/21
== END 2024-08-27 16:17 | disposition home or self-care (01) ==
LOC: HO.CT 16:16
PROVIDERS: PCP Family Medicine; Visit Provider Internal Medicine Nephrology
DX: R31.9 Hematuria, unspecified (principal); N20.0 Calculus of kidney
CPT/HCPCS: 74176

== ENCOUNTER → 2024-08-27 16:17 | Outpatient (BNV) | payer OTHER, SELFPAY | PROVIDERS: PCP Family Medicine; Visit Provider Radiology Diagnostic Radiology | DX: R31.9 Hematuria, unspecified (principal); N20.0 Calculus of kidney | CPT/HCPCS: 74176 ==

== ENCOUNTER 2024-09-07 13:19 | Outpatient (AMB) | payer OTHER, SELFPAY ==
--- NOTE | 2024-09-07 13:20 | A.OFFVIS_ITS ---
Intake Visit Reasons: nephrolithiasis Intake Note: Presents to office for nephrolithiasis Allergies No Known Allergies Allergy (Verified 09/07/24 13:21) HPI Comments Details: Prasanna is a 69 year old male with history of kidney stones. The patient states he has seen Urology in the past and also is followed by nephrology. He states he has passed several stones and has also had lithotripsy procedure over 10 years ago. He currently has had some intermittent left-sided pain. I have reviewed CT imaging there are bilateral kidney stones largest on the left upper pole 16 mm. The patient has had intermittent gross hematuria. I have discussed reasons for blood in the urine may include but are not limited to kidney stones, cancer in the urinary tract, BPH, or inflammatory conditions of the urinary tract. I have discussed that although we know he has kidney stones workup to include cystoscopy evaluation, we will send urine for cytology. CTAP-08/27/24--Nonobstructing stone in the lower pole of the right kidney measuring up to 13 mm. No hydronephrosis or right-sided ureteral stones. Simple appearing left renal cysts measuring up to 3.5 cm for which no specific follow-up necessary. Nonobstructing 16 mm stone in the upper pole of the left kidney. Additional punctate mid kidney stone. [facility] Medical History Chronic kidney disease, stage 3a Essential hypertension Surgical History History of kidney stones Family History Father Heart problem Mother No problems noted. Brother No problems noted. Brother No problems noted. Son No problems noted. Sister No problems noted. Social History Housing: House Patient Tobacco Use Status: Never used Tobacco e-Cigarette/Vaping Use: Never Used Second Hand Smoke Exposure: No service: No Current occupational status: retired Current occupational exposures/hazards: No Cognitive needs: No Hearing needs: No Vision needs: No Review of Systems Const All systems reviewed & are unremarkable except as noted in HPI and below Reports no additional complaints Eyes Reports no additional complaints ENT Reports no additional complaints Card Reports no additional complaints Resp Reports no additional complaints GI Reports no additional complaints Reports as per HPI Musc Reports no additional complaints Skin/Breast Reports system reviewed and no additional complaints, except as documented Neuro Reports no additional complaints Psych Reports no additional complaints Endo Reports no additional complaints Bobby/Lymph Reports no additional complaints Aller/Immun Reports no additional complaints Physical Exam Const General: healthy appearing, no acute distress and well developed Orientation/consciousness: patient oriented x3 HEENT Head: Yes normocephalic and Yes atraumatic Eyes Conjunctivae: conjunctivae normal Neck Neck: Yes normal visual inspection Chest Chest palpation & inspection: normal inspection of the chest Resp Effort & Inspection: normal respiratory effort GI Inspection: Yes normal to inspection Neuro General: patient oriented x3 Psych Appearance: grossly normal Affect: normal affect Results Reviewed Results Reviewed: Date of Service: 08/27/24 CLINICAL HISTORY: R31.9 - Hematuria, unspecified CT abdomen and pelvis without contrast Comparison: None Findings: The lung bases are clear. Gallbladder, liver, spleen, pancreas and left adrenal gland are unremarkable. There is a right adrenal nodule measuring up to 2 cm seen on image 17 of series 2 most consistent with a lipid rich adenoma. Nonobstructing stone in the lower pole of the right kidney measuring up to 13 mm. No hydronephrosis or right-sided ureteral stones. Simple appearing left renal cysts measuring up to 3.5 cm for which no specific follow-up necessary. Nonobstructing 16 mm stone in the upper pole of the left kidney. Additional punctate mid kidney stone. There is dilation of the left ureter to the level of the bladder but no discrete filling defect is identified. This could indicate a recently passed stone. No bowel obstruction, pneumoperitoneum, or pneumatosis. Sigmoid diverticulosis without diverticulitis. Normal appendix. Prostate is mildly enlarged. No filling defects within the thin-walled bladder. No fluid collections or adenopathy. Small fat containing bilateral inguinal hernias. No vascular dilation. No acute fracture. IMPRESSION: Bilateral nonobstructing renal stones as described. There is mild dilation of the left ureter without discrete stone. This could indicate a recently passed stone. No bladder stones. Benign-appearing left renal cysts. Lipid rich right adrenal adenoma. Assessment & Plan Assessment & Plan (1) Renal calculus: Code(s): N20.0 - Calculus of kidney Category: Medical (2) Hematuria: Code(s): R31.9 - Hematuria, unspecified Category: Medical Plan Schedule Left ESWL fu office cysto Orders: Orders Urine Cytology Today R31.9 - Hematuria, unspecified Patient Instructions: The patient had an opportunity to ask questions regarding treatment plan. The patient expressed understanding and agreement with the above treatment plan. The patient is aware they should contact our office by phone for worsening of their current condition or the appearance of new symptoms. Compliance is encouraged with any medications and followup testing that is ordered. It is a privilege to be allowed the opportunity to participate in the urologic care of your patient. If you have any questions or concerns regarding treatment for the above conditions please do not hesitate to contact me. The office telephone contact is [phone]. This note is constructed in part using voice recognition software. While every effort has been made to ensure accuracy welt butter hand errors may have been included. Yours sincerely, Serina Goodman MD Coding Level of Care Code New Pt Level 4 (78600) Diagnoses Renal calculus N20.0 Hematuria R31.9
--- OUTSIDE RECORDS SUMMARY | 2024-09-07 16:19 | XMS_ITS | Clinical Summary ---
Author Organization [facility] Address [address] [facility] [address] [place] [address] Phone Care Team Providers Care Batch Room Technician Name Role Phone Jim Beavers MD Primary Care Provider [phone]- [phone] Allergies No known active allergies Medications allopurinol [...] patient's age to complete this topic Insurance [facility] Care Teams Batch Room Technician Relationship Specialty Start Date End Date Jim Beavers MD [address] [address] PCP - General Family Medicine 07/12/21
== END 2024-09-07 14:43 | disposition home or self-care (01) ==
PROVIDERS: PCP Family Medicine; Visit Provider Urology
DX: N20.0 Calculus of kidney (principal); R31.9 Hematuria, unspecified
CPT/HCPCS: 99204

== ENCOUNTER 2024-09-07 13:19 | Outpatient (REF) | payer OTHER, SELFPAY ==
[2024-09-07 16:02] LABS: Urine Cytology See Pathology rpt
--- OUTSIDE RECORDS SUMMARY | 2024-09-07 17:22 | XMS_ITS | Clinical Summary ---
Author Organization [facility] Address [address] [facility] [address] [place] [address] Phone Care Team Providers Care Application Developer Name Role Phone Jim Beavers MD Primary Care Provider [phone]- [phone] Allergies No known active allergies Medications allopurinol [...] patient's age to complete this topic Insurance [facility] Care Teams Application Developer Relationship Specialty Start Date End Date Jim Beavers MD [address] [address] PCP - General Family Medicine 07/12/21
== END 2024-09-07 13:20 | disposition home or self-care (01) ==
LOC: HO.LNP 13:19
PROVIDERS: PCP Family Medicine; Visit Provider Urology
DX: R31.9 Hematuria, unspecified (principal)
CPT/HCPCS: 88112

== ENCOUNTER 2024-09-10 08:37 | Outpatient (AMB) | payer OTHER, SELFPAY ==
--- OUTSIDE RECORDS SUMMARY | 2024-09-10 08:54 | XMS_ITS | Clinical Summary ---
Author Organization [facility] Address [address] [facility] [address] [place] [address] Phone Care Team Providers Care Benefits Representative Name Role Phone Jim Beavers MD Primary Care Provider [phone]- [phone] Allergies No known active allergies Medications allopurinol [...] patient's age to complete this topic Insurance [facility] Care Teams Benefits Representative Relationship Specialty Start Date End Date Jim Beavers MD [address] [address] PCP - General Family Medicine 07/12/21
--- NOTE | 2024-09-10 08:55 | MHC.PC.OV ---
Vital Signs 09/10/24 08:57 Height 6 ft 1 in Weight 212 lb 2 oz BMI 28.0 BP 110/68 Blood Pressure Location Rt brachial Position Sitting Respiration 12 Pulse 83 Pulse Source Pulse Oximeter Temp 97.9 F Temp Source Oral Pulse Oximetry (%) 97 Oxygen Delivery Method Room Air Intake Visit Reasons: f/u diabetes, HTN, chronic conditions Intake Note: follow up htn and dm Sales Vice President Required: No Allergies No Known Allergies Allergy (Verified 09/10/24 08:56) Medication List - Last Reconciled 09/10/24 by Jim Beavers MD allopurinol 300 mg PO DAILY 90 days cholecalciferol (vitamin D3) 25 mcg PO DAILY 90 days dapagliflozin propanediol 5 mg PO QAM 90 days gemfibrozil 600 mg PO BID glipizide ER 20 mg (2 x 10 mg) PO QAM 90 days lisinopril 10 mg (1/2 x 20 mg) PO DAILY 90 days metformin 500 mg PO BID 90 days pravastatin 20 mg PO DAILY 90 days semaglutide (Ozempic) 1 mg (0.75 mL) subcut QWEEK 28 days Tobacco use date assessed: 06/08/24 Dental Screening Dental Screen Date: 06/08/24 HPI f/u diabetes, HTN, chronic conditions HPI Details 69 y/o male presents to f/u diabetes, HTN, chronic conditions. Blood pressure today 110/68, 83p. He is on lisinopril 10mg daily. A1c today 09/10/24 is 6.4%. Up to date with his diabetic eye exam. Has been following up with Nephrology for renal stones, CKD. HPI Comments History of Present Illness Details Documentation assistance for Jim Beavers MD, was provided by John Gan,? Electronics Inspector on 09/10/2024 at 9:06 AM SHAYNA. I, Dr. Beavers, have read, observed, and verified documentation. ?? PFSH Medical History Chronic kidney disease, stage 3a Essential hypertension Surgical History History of kidney stones Family History Father Heart problem Mother No problems noted. Brother No problems noted. Brother No problems noted. Son No problems noted. Sister No problems noted. Social History Housing: House Patient Tobacco Use Status: Never used Tobacco e-Cigarette/Vaping Use: Never Used Second Hand Smoke Exposure: No service: No Current occupational status: retired Current occupational exposures/hazards: No Cognitive needs: No Hearing needs: No Vision needs: No Questionnaire PHQ-9 Over the last 2 weeks, how often have you been bothered by any of the following problems? 1. Little interest or pleasure in doing things: not at all 2. Feeling down, depressed, or hopeless: not at all 3. Trouble falling or staying asleep, or sleeping too much: not at all 4. Feeling tired or having little energy: not at all 5. Poor appetite or overeating: not at all 6. Feeling bad about yourself - or that you are a failure or have let yourself or your family down: not at all 7. Trouble concentrating on things, such as reading the newspaper or watching television: not at all 8. Moving or speaking so slowly that other people could have noticed. Or the opposite - being so fidgety or restless that you have been moving around a lot more than usual: not at all 9. Thoughts that you would be better off or of hurting yourself in some way: not at all Total score: 0 Source: Developed by Drs. Satinder Gaffney, Kristi Cedeno, Ryan Austin and colleagues, with an educational milagros from [employer]. Thrive Questionnaire Date Thrive assessed: 09/03/24 I am a: Patient What is your living situation today?: I have a steady place to live Within the past 12 months, did the food you bought not last and you didn't have the money to get more?: Never true Within the past 12 months, did you worry whether your food would run out before you got money to buy more?: Never true Do you have trouble paying for medicines?: No Do you have trouble getting transportation to medical appointments?: No Do you have trouble paying your heating and electricity bill?: No Do you have trouble taking care of your child, family member or friend?: No Do you have trouble with day-to-day activities such as bathing, preparing meals, shopping, managing finances, etc.?: No Are you currently unemployed and looking for a job?: No Are you interested in more education?: No Please select the resources that you would like help with: None Currently or been in a relationship where the following occur: No concerns reported THRIVE Score: 0 AUDIT C Alcohol Use Questionnaire (AUDIT-C) 1. How often do you have a drink containing alcohol?: Monthly or less 2. How many drinks containing alcohol do you have on a typical day when you are drinking?: 1 or 2 3. How often do you have six or more drinks on one occasion?: Never Total Score: 1 FREDI-7 AMB Questionnaire FREDI-7 Date FREDI - 7 assessed: 10/22/23 Feeling nervous, anxious, or on edge: 0 = Not at all Not being able to stop or control worryin = Not at all Worrying too much about different things: 0 = Not at all Trouble relaxin = Not at all Being so restless that it is hard to sit still: 0 = Not at all Becoming easily annoyed or irritable: 0 = Not at all Feeling afraid as if something awful might happen: 0 = Not at all Total FREDI-7 score (0-4 normal; 5-9 mild; 10-14 moderate; 15-21 severe): 0 Source: Developed by Drs. Satinder Gaffney, Kristi Cedeno, Ryan Austin and colleagues, with an educational milagros from [employer]. Review of Systems Const Denies chills, Denies fatigue, Denies fever(s), Denies headache(s) and Denies weakness ENT Denies dizziness and Denies headache(s) Card Denies chest pain, Denies lightheadedness, Denies dyspnea and Denies other (Palpitations) Resp Denies cough, Denies dyspnea, Denies wheezing and Denies other ( shortness of breath) Musc Denies numbness and Denies tingling Neuro Denies dizziness, Denies headache(s), Denies numbness, Denies tingling, Denies paresthesias and Denies weakness Psych Denies anxiety and Denies depression Endo Denies fatigue Aller/Immun Denies wheezing Physical exam (Primary Care) Vital Signs: Last Vital Signs Temp 97.9 F 09/10/24 08:57 Pulse 83 09/10/24 08:57 Resp 12 09/10/24 08:57 BP 110/68 09/10/24 08:57 Pulse Ox 97 09/10/24 08:57 Oxygen Delivery Method Room Air 09/10/24 08:57 BMI result Body Mass Index 28.0 Tobacco/Smoking Status: Tobacco use Status Tobacco use date assessed 06/08/24 09/10/24 08:59 Patient Tobacco Use Status Never used Tobacco 09/10/24 08:59 e-Cigarette/Vaping Use Never Used 09/10/24 08:59 PHQ-9: PHQ-9 Score PHQ-9: Total score 0 09/10/24 09:08 Thrive Assessment: Date of Thrive Assessment Date Thrive assessed 09/03/24 09/10/24 08:59 Currently or been in a relationship where the following occur: No concerns reported Const General: no acute distress and well developed Nutritional Appearance: well nourished Orientation/consciousness: patient oriented x3 HENMT Head: Yes normocephalic and Yes atraumatic Eyes General: appearance normal, both eyes and all related structures Pupils: Equal, round and reactive pupils present EOM: EOMs intact bilaterally Resp Effort & Inspection: normal respiratory effort Auscultation: clear to auscultation bilaterally Cardio Rate: regular rate Rhythm: regular rhythm Heart sounds: S1 normal heart sound present, S2 normal heart sound present, no gallops, no murmurs and no rubs Neuro General: patient oriented x3 and gait normal Cranial nerves: Yes Equal, round and reactive pupils present Psych Affect: normal affect Results AMB Hemoglobin A1c AMB Hemoglobin A1c 6.4 % Last Edit by Oleg Mendoza CMA on 09/10/24 09:05 Results Reviewed Results Reviewed: Laboratory Last Values Hgb A1c (Clinic) 6.4 % (4.0-6.0) H 09/10/24 09:03 Coding Level of Care Code Est Pt Level 4 (02813) Diagnoses Diabetes type 2, controlled E11.9 Essential hypertension I10 Renal failure N19 Renal calculus N20.0 Assessment & Plan Assessment & Plan (1) Diabetes type 2, controlled: Code(s): E11.9 - Type 2 diabetes mellitus without complications Category: Medical Plan: A1c?6.4%.??Good?control.??Goal?is?less?than?7.0% Continue?current?medication?regimen.??Keep?working?at?diet?low?in?sugars?and?starches.??Encouraged?weight?control?and?exercise If?A1c?continues?to?decline,?could?consider?decreasing?his?glipizide?at?subsequent?visit. Patient?has?his?next?diabetic?eye?exam?next?month.??He?is?up-to-date. (2) Essential hypertension: Code(s): I10 - Essential (primary) hypertension Category: Medical Plan: Blood?pressure?110/68.??Good?control.??Goal?is?less?than?140/90 Continue?lisinopril (3) Renal failure: Code(s): N19 - Unspecified kidney failure Category: Medical Plan: Followed?by?. Creatinine?and?EGFR?in?May?were?improving More?recently?has?had?renal?calculi Rechecking?renal?function?labs. (4) Renal calculus: Code(s): N20.0 - Calculus of kidney Category: Medical Plan: Hematuria?and?found?to?have?large?renal?calculi on?recent?CT?scan. Also?showed?some?mild?dilatation?left?ureter. Mild?hydronephrosis?- checking?renal?function?labs Follow-up?urology?as?recommended. Lithotripsy?is?planned Orders: Orders Basic Metabolic Panel Today N18.31 - Chronic kidney disease, stage 3a, Z00.00 - Encounter for general adult medical examination without abnormal findings Microalbumin, Random (w Creat) Today I10 - Essential (primary) hypertension, N18.31 - Chronic kidney disease, stage 3a AMB Hemoglobin A1c Today E11.9 - Type 2 diabetes mellitus without complications UA and rflx microscopic Today N18.31 - Chronic kidney disease, stage 3a, Z00.00 - Encounter for general adult medical examination without abnormal findings
[2024-09-10 08:57] VITALS: BP 110/68; PULSE 83; RESP 12; TEMP 36.6; O2SAT 97; BMI 28.0
== END 2024-09-10 09:14 | disposition home or self-care (01) ==
PROVIDERS: PCP Family Medicine; Visit Provider Family Medicine
DX: E11.9 Type 2 diabetes mellitus without complications (principal); I10 Essential (primary) hypertension; N19 Unspecified kidney failure; N20.0 Calculus of kidney

== ENCOUNTER → 2024-09-10 08:37 | Outpatient (BNVA) | payer OTHER, SELFPAY | PROVIDERS: PCP Family Medicine; Visit Provider Family Medicine | DX: E11.22 Type 2 diabetes mellitus with diabetic chronic kidney disease (principal); I12.9 Hypertensive chronic kidney disease with stage 1 through stage 4 chronic kidney disease, or unspecified chronic kidney disease; N18.31 Chronic kidney disease, stage 3a; N20.0 Calculus of kidney; Z79.899 Other long term (current) drug therapy | CPT/HCPCS: 83036; 96127 ==

== ENCOUNTER 2024-09-10 09:24 | Outpatient (REF) | payer OTHER, SELFPAY ==
--- OUTSIDE RECORDS SUMMARY | 2024-09-10 10:07 | XMS_ITS | Clinical Summary ---
Author Organization [facility] Address [address] [facility] [address] [place] [address] Phone Care Team Providers Care Asp Net Developer Name Role Phone Jim Beavers MD Primary Care Provider [phone]- [phone] Allergies No known active allergies Medications allopurinol [...] patient's age to complete this topic Insurance [facility] Care Teams Asp Net Developer Relationship Specialty Start Date End Date Jim Beavers MD [address] [address] PCP - General Family Medicine 07/12/21
[2024-09-10 11:06] LABS: Appearance Urine Clear; Color Urine Yellow; Glucose Urine UA >=1000 mg/dL (Negative); Leukocyte Esterase Urine Small (1+) (Negative); Nitrite Urine Positive (Negative); Specific Gravity - Urine >= 1.030 (1.005-1.025); UMIC TRIGGER UA YES; Urine Blood Negative (Negative); Urine Ketones Negative (Negative); Urine Protein Trace mg/dL (Neg-Trace)
[2024-09-10 11:12] LABS: Bacteria Urine 1+ (None Seen); Hyaline Casts Urine 0-2 /LPF (0-2); RBC Urine 0-2 /HPF (0-2); Squamous Epithelial Cell Urine 0-2 /HPF (0-2); WBC Urine 21-50 /HPF (0-5)
[2024-09-10 11:24] LABS: Anion Gap 11 (12-20); Blood Urea Nitrogen 28 mg/dL (9-16); Carbon Dioxide 24 mmol/L (22-29); Chloride 109 mmol/L (96-108); Estimated Glomerular Filt Rate 55; Glucose Random 223 mg/dL (60-115); Potassium 4.1 mmol/L (3.3-5.1); Sodium 140 mmol/L (135-145)
[2024-09-10 11:40] LABS: Creatinine Urine 61.15 mg/dL; Microalbum/Creatinine Ratio Ur 106.2 ug/mg cr (<30)
== END 2024-09-10 09:25 | disposition home or self-care (01) ==
LOC: HO.WFDLDS 09:24
PROVIDERS: Visit Provider Family Medicine
DX: Z00.00 Encounter for general adult medical examination without abnormal findings (principal); I10 Essential (primary) hypertension; N18.31 Chronic kidney disease, stage 3a
CPT/HCPCS: 36415; 80048; 81001; 81003; 82043; 82570

== ENCOUNTER 2024-09-17 09:07 | Outpatient (AMB) | payer OTHER, SELFPAY ==
--- OUTSIDE RECORDS SUMMARY | 2024-09-17 09:48 | XMS_ITS | Clinical Summary ---
Author Organization [facility] Address [address] [facility] [address] [place] [address] Phone Care Team Providers Care Social Services Analyst Name Role Phone Jim Beavers MD Primary Care Provider +1- [phone] Allergies No known active allergies Medications allopurinol [...] patient's age to complete this topic Insurance [facility] Care Teams Social Services Analyst Relationship Specialty Start Date End Date Jim Beavers MD [address] [address] PCP - General Family Medicine 07/12/21
--- NOTE | 2024-09-17 09:53 | A.OFFVIS_ITS ---
Intake Visit Reasons: Cysto Intake Note: Patient presents to office for cysto Urology Medication:Allopurinol Antibiotic Allergy:none Blood Thinner:none Allergies No Known Allergies Allergy (Verified 09/17/24 09:54) HPI Comments Details: 09/17/24-- here for office cysto 09/17/24-- History of Present Illness The patient is a 69-year-old male presenting with hematuria. Previous evaluation with a CT scan identified nephrolithiasis, specifically kidney stones in both kidneys, with a significant stone in the left kidney being the target for Shockwave Lithotripsy. The patient's history includes prior lithotripsy treatment approximately 9-10 years ago. He experiences no urinary tract infections or alterations in voiding patterns. The exam identified benign prostatic hyperplasia, and a 5-alpha reductase inhi bitor has been prescribed to address this. The initiation of the medication is indicative of the need to manage the prostatomegaly effectively and reduce any bleeding risks. The patient will undergo subsequent imaging to assess lithotripsy success with follow-ups scheduled accordingly. Urinary Symptoms Review - Denies current visible hematuria - History of nephrolithiasis with current stones in both kidneys Review of Systems - Genitourinary: Reports kidney stones; Denies current hematuria Const All systems reviewed & are unremarkable except as noted in HPI and below Reports no additional complaints Eyes Reports no additional complaints ENT Reports no additional complaints Card Reports no additional complaints Resp Reports no additional complaints GI Reports no additional complaints Reports as per HPI Musc Reports no additional complaints Skin/Breast Reports system reviewed and no additional complaints, except as documented Neuro Reports no additional complaints Psych Reports no additional complaints Endo Reports no additional complaints Bobby/Lymph Reports no additional complaints Aller/Immun Reports no additional complaints Physical Exam General: Healthy appearing, no acute distress and well developed Orientation and consciousness: Patient oriented x3 Head: Yes normocephalic and Yes atraumatic Eyes: Conjunctivae normal Neck: Yes normal visual inspection Chest: Normal inspection of the chest Respiratory: Normal respiratory effort GI: Normal to inspection : Extremities: Skin: Neurology: Patient oriented x3 Psych: Appearance grossly normal. Normal affect Results - Imaging: CT scan demonstrated kidney stones; largest stone in the left kidney Plan I recommend proceeding with Shockwave Lithotripsy to address the nephrolithiasis by focusing on the largest stone in the left kidney. A two-week follow-up imaging study will evaluate the effectiveness of the lithotripsy treatment. For the benign prostatic hyperplasia, a 5-alpha reductase inhibitor has been prescribed to manage prostate size and associated symptoms. Coordination with the patient?s insurance for scheduling the lithotripsy is underway. Expected outcomes, as well as procedural risks and alternatives, have been thoroughly discussed with the patient, ensuring understanding and consent. Patient was informed and verbally consented to the use of an ambient scribe for clinic note documentation during this visit. Discussion Notes I explained to the patient that the cystoscopy revealed no bladder abnormalities, reassuring him regarding initial findings for his hematuria. We discussed the significance of the CT findings showing kidney stones. I recommended Shockwave Lithotripsy for the left kidney?s stone and outlined possible occurrences of visible blood in urine post-treatment. We reviewed the initiation of a 5-alpha reductase inhibitor to manage his benign prostatic hyperplasia and emphasized that this medication addresses prostate enlargement and associated bleeding risks. We spoke about the procedural scheduling steps and insurance coordination. Patient Instructions - Expect some blood in your urine following the cystoscopy. - Schedule the Shockwave Lithotripsy procedure upon contact from my ham stringer. - Start taking the prescribed medication for prostate enlargement as instructed. - Follow up in two weeks post-procedure for imaging and evaluation. - Contact the clinic if you experience any significant discomfort or new symptoms. 09/07/24--Prasanna is a 69 year old male with history of kidney stones. The patient states he has seen Urology in the past and also is followed by nephrology. He states he has passed several stones and has also had lithotripsy procedure over 10 years ago. He currently has had some intermittent left-sided pain. I have reviewed CT imaging there are bilateral kidney stones largest on the left upper pole 16 mm. The patient has had intermittent gross hematuria. I have discussed reasons for blood in the urine may include but are not limited to kidney stones, cancer in the urinary tract, BPH, or inflammatory conditions of the urinary tract. I have discussed that although we know he has kidney stones workup to include cystoscopy evaluation, we will send urine for cytology. CTAP-08/27/24--Nonobstructing stone in the lower pole of the right kidney measuring up to 13 mm. No hydronephrosis or right-sided ureteral stones. Simple appearing left renal cysts measuring up to 3.5 cm for which no specific follow-up necessary. Nonobstructing 16 mm stone in the upper pole of the left kidney. Additional punctate mid kidney stone. [facility] Medical History Chronic kidney disease, stage 3a Essential hypertension Surgical History History of kidney stones Family History Father Heart problem Mother No problems noted. Brother No problems noted. Brother No problems noted. Son No problems noted. Sister No problems noted. Social History Housing: House Patient Tobacco Use Status: Never used Tobacco e-Cigarette/Vaping Use: Never Used Second Hand Smoke Exposure: No service: No Current occupational status: retired Current occupational exposures/hazards: No Cognitive needs: No Hearing needs: No Vision needs: No Office Procedures Cystoscopy Consent Discussed risk and benefit or proposed procedure with the patient. Information consent for procedure given to the patient. Discussed technical aspects, risks, benefits and alternatives in full. Addressed all of the patient's questions and concerns regarding the procedure. The patient demonstrated knowledge and understanding. They wish to proceed with this procedure. Preparation The patient was prepped in the usual manner. A driving instructor was present and in the room. Genitalia was prepped with betadine solution in a sterile manner. Lidocaine Jelly 2% was placed into the urethra and 16Fr flexible Olympus cystoscope was inserted into the meatus after adequate lubrication. [id number] DISPOSABLE SCOPE URO-G FLEXIBLE SCOPE Procedure code (CPT) selection complete Office Meds lidocaine HCl 2 % mucosal jelly in applicator Performing Provider: Serina Goodman MD [facility] Administered by: Juan Barahona LPN on 09/17/24 10:19 Dose Route Admin Location Dispensed Lot Number Expiration Date [facility] [employer] 10 mL intra-urethral 20 mL ciprofloxacin HCl 500 mg tablet Performing Provider: Serina Goodman MD [facility] Administered by: Juan Barahona LPN on 09/17/24 10:19 Dose Route Admin Location Dispensed Lot Number Expiration Date [facility] [employer] 500 mg PO 1 tab Results AMB Urinalysis, Automated UA Leukoctes 0 Mary/uL Last Edit by Brenda Denise on 09/17/24 10:25 UA Nitrite Negative Last Edit by Brenda Denise on 09/17/24 10:25 UA Urobilinogen 3.5 mg/dL Last Edit by Brenda Denise on 09/17/24 10:25 UA Protein 1 mg/dL Last Edit by Brenda Denise on 09/17/24 10:25 UA pH 6.0 Last Edit by Brenda Denise on 09/17/24 10:25 UA Blood 0 Khanh/uL Last Edit by Brenda Denise on 09/17/24 10:25 UA Specific Beaumont 1.010 Last Edit by Brenda Denise on 09/17/24 10:25 UA Ketone Negative Last Edit by Brenda Denise on 09/17/24 10:25 UA Bilirubin 0 mg/dL Last Edit by Brenda Denise on 09/17/24 10:25 UA Glucose 60 mg/dL Last Edit by Brenda Denise on 09/17/24 10:25 Results Reviewed Results Reviewed: Laboratory Last Values Urine pH (Auto) 6.0 09/17/24 10:10 Specific Beaumont (Auto) 1.010 09/17/24 10:10 Urine Protein (Auto) 1 mg/dL 09/17/24 10:10 Glucose (UA)(Auto) 60 mg/dL 09/17/24 10:10 Urine Ketones (Auto) Negative 09/17/24 10:10 Urine Blood (Auto) 0 Khanh/uL 09/17/24 10:10 Urine Nitrite (Auto) Negative 09/17/24 10:10 Urine Bilirubin (Auto) 0 mg/dL 09/17/24 10:10 Urine Urobilinogen (Auto) 3.5 mg/dL 09/17/24 10:10 Leukocyte Esterase (Auto) 0 Mary/uL 09/17/24 10:10 Assessment & Plan Assessment & Plan Orders: Orders AMB Urinalysis Automated Today Z13.9 - Encounter for screening, unspecified AMB Cystoscopy Today N20.0 - Calculus of kidney, R31.9 - Hematuria, unspecified Coding CPT Codes Cystoscopy - CPT: [id number]-[id number] ([id number])
== END 2024-09-17 11:00 | disposition home or self-care (01) ==
PROVIDERS: PCP Family Medicine; Visit Provider Urology
DX: N20.0 Calculus of kidney (principal); R31.9 Hematuria, unspecified
CPT/HCPCS: 52000

== ENCOUNTER → 2024-09-17 09:07 | Outpatient (BNVA) | payer OTHER, SELFPAY | PROVIDERS: PCP Family Medicine; Visit Provider Urology | DX: R31.9 Hematuria, unspecified (principal); N40.1 Benign prostatic hyperplasia with lower urinary tract symptoms; N13.8 Other obstructive and reflux uropathy; N20.0 Calculus of kidney | CPT/HCPCS: 52000; 81003 ==

== ENCOUNTER 2024-12-15 06:00 | Day surgery (SDC) | payer OTHER, SELFPAY ==
--- OUTSIDE RECORDS SUMMARY | 2024-11-30 14:13 | XMS_ITS | Clinical Summary ---
Author Organization [facility] Address [address] [facility] [address] [place] [address] Phone Care Team Providers Care Director Of Student Financial Aid Name Role Phone Jim Beavers MD Primary Care Provider +1- [phone] Allergies No known active allergies Medications allopurinol [...] Due Date Last Done Comments Pneumococcal Vaccine: 50+ Ye ars (1 of 2 - PCV) 1973 Colorectal Cancer Screening: Annual FOBT 2003 Colorectal Cancer Screening: Colonoscopy 2003 Colorectal Cancer Screening: Sigmoidoscopy 2003 Influenza Vaccine (Season Ended) 2025 Hepatitis B Vaccine Aged Out No longe r eligible based on patient's age to complete this topic Insurance Care Teams Director Of Student Financial Aid Relationship Specialty Start Date End Date Jim Beavers MD [address] [address] PCP - General Family Medicine 07/12/21
--- NOTE | 2024-12-14 09:09 | HO.ANESPROP2 ---
Documented by User: Julienne Barragan NP 12/14/24 09:10 HPI - Anesthesia Eval Consult details Narrative: 69yo M for Left Lithotripsy ESW Anesthesia Pre-Procedure Meds Is the patient on any of the following meds?: GLP1/DPP4 and SGLT2 Inhib PMFSH Active Problems Active Problems: All Active Problems BPH loc w urin obs/LUTS (Acute) Renal calculus (Acute) Hematuria (Acute) Hand pain (Acute) Proteinuria (Acute) Elevated PSA (Acute) Low HDL (under 40) (Acute) Bacteriuria (Acute) Immunization counseling (Acute) Screening for prostate cancer (Acute) Screening for colon cancer (Acute) Adult general medical exam (Acute) Screening-pulmonary TB (Acute) Microalbuminuria (Acute) Screening for tuberculosis (Acute) Renal failure (Acute) Hypertriglyceridemia (Acute) Diabetes type 2, controlled (Acute) Chronic kidney disease, stage 3a (Acute) Essential hypertension (Acute) Past Medical History Medical History Diabetes type 2, controlled Chronic kidney disease, stage 3a Essential hypertension Family History Family History Father Heart problem Mother No problems noted. Brother No problems noted. Brother No problems noted. Son No problems noted. Sister No problems noted. Surgical History Surgical History Hx of cystoscopy History of lithotripsy History of kidney stones Social History Social History Housing: House Patient Tobacco Use Status: Never used Tobacco e-Cigarette/Vaping Use: Never Used Second Hand Smoke Exposure: No Use of substances other than those prescribed or required for medical reasons: No Are you DNR?: No Advance Directives: No Advance Directives Information Provided: Yes service: No Current occupational status: retired Current occupational exposures/hazards: No Cognitive needs: No Hearing needs: No Vision needs: No Meds Allergies Allergy/AdvReac Type Severity Reaction Status Date / Time No Known Allergies Allergy Verified 12/15/24 07:13 Exam Pertinent Lab Results Pertinent Lab Results: Laboratory Tests 09/10/24 09:26 Sodium 140 Potassium 4.1 Chloride 109 H Carbon Dioxide 24 BUN 28 H Creatinine 1.30 Assessment and Plan Assessment Anesthesia Assessment: Chart Reviewed Documented by User: Carey Whelan MD 12/15/24 07:45 PMFSH Past Medical History Medical History Diabetes type 2, controlled Chronic kidney disease, stage 3a Essential hypertension Family History Family History Father Heart problem Mother No problems noted. Brother No problems noted. Brother No problems noted. Son No problems noted. Sister No problems noted. Family history of problems with anesthesia: No Surgical History Surgical History Hx of cystoscopy History of lithotripsy History of kidney stones History of Problems with Anesthesia: No Social History Social History Housing: House Patient Tobacco Use Status: Never used Tobacco e-Cigarette/Vaping Use: Never Used Second Hand Smoke Exposure: No Use of substances other than those prescribed or required for medical reasons: No Are you DNR?: No Advance Directives: No Advance Directives Information Provided: Yes service: No Current occupational status: retired Current occupational exposures/hazards: No Cognitive needs: No Hearing needs: No Vision needs: No Meds Allergies Allergy/AdvReac Type Severity Reaction Status Date / Time No Known Allergies Allergy Verified 12/15/24 07:13 Exam Airway Mallampati Class: II TM Dist: >3cm Neck ROM: Limited Heart: rrr Lungs: cta Assessment and Plan Assessment Anesthesia Assessment: Anesthesia Plan Discussed Final Anesthetic Review Family History of Problems with Anesthesia: No History of Problems with Anesthesia: No NPO: Yes ASA Class: III Final Preanesthetic Review: No Changes in Pt Med Stat, Meds/Allgs Chart Reviewed, Consent Obtained/Reviewed and Anes Risks/Benef Reviewed Patient Risk: Intermediate Procedure Risk: Low Anesthetic Plan Anesthetic Plan: MAC: Disposition: Standard PACU
--- NOTE | ~2024-12-15 | XR_ITS ---
EXAMINATION: XR ABDOMEN 1 VIEW (KUB) HISTORY: kidney stones COMPARISON: Correlation is made with an unenhanced CT of the abdomen dated 08/27/2024. FINDINGS: Three supine views of the abdomen are submitted. The bowel gas pattern is unremarkable, without evidence of mechanical obstruction. There is a 1.6 cm calcification overlying the lower pole of the right renal shadow. There is a 10 mm calcification overlying the upper pole of the left renal shadow and a 5 mm calcification overlying the lower pole. There are no abnormal soft tissue masses. The bones are intact. XR/XR KUB IMPRESSION: Bilateral nephrolithiasis as described. Electronically signed by: Satinder Alaniz MD 12/15/2024 07:34 AM EDT
[2024-12-15 07:00] VITALS: BMI 27.7
[2024-12-15 07:18] VITALS: BP 135/80; PULSE 69; RESP 16; TEMP 36; O2SAT 100
--- NOTE | 2024-12-15 07:32 | P.OP_ITS ---
Operative Note Operative Note Date of Service: 12/15/24 Narrative: PreOperative Diagnosis:? ? Left Renal stone Post Operative Diagnosis:?Left? Renal stone Procedure:?Left? ESWL Surgeon:?Dr Serina Goodman Anesthesia:? MAC Indications for procedure: The patient understands there is a risk of bruising or hematoma to the kidney, infection, and stone migration following the procedure and subsequent intervention may be required.? - Imaging 9x5 mm stone -Left upper pole Procedure: After informed consent was verified the patient was brought to the operating room and placed in a supine position.? Anesthesia was performed per protocol. Safety pause time-out was performed. Imaging was displayed in the room and lat erality confirmed. ESWL was performed.?The stone was visualized on both fluoroscopy and ultrasound.? Shockwave lithotripsy was performed, with a maximum rate of 120 hertz. After the first 300 shocks a pause for 3 minutes was completed.? A total of 2500 shocks to a maximum of power of 20 with a maximum rate of 120 hertz.? Good fragmentation of the stone was appreciated. The patient tolerated the procedure well and was transferred to the recovery area upon completion. Complications: None
--- NOTE | 2024-12-15 07:32 | MHC.SHP ---
Pre-Procedural Eval Section A - 24 Hr Update-Section A only Date of Service: 12/15/24 The patient is an INPATIENT: No The patient has been examined within 24 hours of the surgical procedure. The History & Physical has been completed within 30 days and I have reviewed it.: Yes Section B - Complete if H&P > 30 days Chief Complaint: Calculus of kidney, left Allergies: Allergies Allergy/AdvReac Type Severity Reaction Status Date / Time No Known Allergies Allergy Verified 12/15/24 07:13 Plan Diagnosis/Plan: Unchanged I have reviewed the history and physical and performed a pertinent physical examination on my patient. No changes have occurred unless specified. Left ESWL.Discussed risks to include but not limited to, blood in the urine, bruising to the skin, kidney hematoma, possible need for another procedure if a stone fragment obstructs the ureter while passing, possible need to repeat procedure if stone is not completely fragmented. Time Spent With Patient Time: Total time managing care of this patient today ____ minutes.
[2024-12-15] MEDS: Lactated Ringers 1,000 ML 100 ML IVCONT (07:36)
[2024-12-15 07:39] LABS: Glucose, Whole Blood 155 mg/dL (60-115)
[2024-12-15 08:28] VITALS: BP 107/69; PULSE 71; RESP 16; TEMP 36.1; O2SAT 96
[2024-12-15 08:43] VITALS: BP 126/80; PULSE 60; RESP 16; O2SAT 100
[2024-12-15 08:58] VITALS: BP 134/86; PULSE 60; RESP 16; O2SAT 100
[2024-12-15 09:13] VITALS: BP 135/86; PULSE 60; RESP 18; TEMP 36.2; O2SAT 98
== END 2024-12-15 09:41 | disposition home or self-care (01) ==
PROVIDERS: PCP Family Medicine; Visit Provider Urology
PROC: (CPT 50590; principal; 2024-12-15 07:30)
DX: N20.0 Calculus of kidney (principal); Z87.442 Personal history of urinary calculi; E11.22 Type 2 diabetes mellitus with diabetic chronic kidney disease; I12.9 Hypertensive chronic kidney disease with stage 1 through stage 4 chronic kidney disease, or unspecified chronic kidney disease; N18.31 Chronic kidney disease, stage 3a; N40.0 Benign prostatic hyperplasia without lower urinary tract symptoms; R31.9 Hematuria, unspecified; Z79.84 Long term (current) use of oral hypoglycemic drugs; Z79.85 Long-term (current) use of injectable non-insulin antidiabetic drugs; Z79.899 Other long term (current) drug therapy
CPT/HCPCS: 50590; 74018; 82947; J0131; J0690; J1938; J2003; J2704; J3010

== ENCOUNTER → 2024-12-15 06:00 | Outpatient (BNV) | payer OTHER, SELFPAY | PROVIDERS: PCP Family Medicine; Visit Provider Urology | DX: N20.0 Calculus of kidney (principal) | CPT/HCPCS: 50590 ==

== ENCOUNTER → 2024-12-15 06:52 | Outpatient (BNV) | payer OTHER, SELFPAY | PROVIDERS: PCP Family Medicine; Visit Provider Radiology Diagnostic Radiology | DX: N20.0 Calculus of kidney (principal) | CPT/HCPCS: 74018 ==

== ENCOUNTER 2025-01-26 13:50 | Outpatient (REF) | payer OTHER, SELFPAY ==
--- NOTE | ~2025-01-26 | US_ITS ---
CLINICAL HISTORY: N20.0 - Calculus of kidney US renal Comparison: None Provided Findings: Right kidney 11.7 cm length. Left kidney 12.8 cm length. Small bilateral nonobstructing renal stones. Bilateral renal cysts also noted. No bilateral hydronephrosis. Normal bilateral renal echogenicity. Impression: Bilateral nonobstructing renal stones This document has been electronically signed by: Ferdinand Sams MD on 01/26/2025 19:43:38
--- NOTE | ~2025-01-26 | XR_ITS ---
EXAMINATION: XR ABDOMEN KUB CLINICAL INDICATION: N20.0 - Calculus of kidney COMPARISON: December 15, 2024. TECHNIQUE: AP view of the abdomen. FINDINGS: There is a cluster, 14 mm calcification overlapping the lower pole right kidney shadow. There is a 3 mm calcification overlapping the lower pole left kidney shadow. No intestinal obstruction pattern. Multilevel thoracolumbar spondylosis. Mild degenerative changes in the coxofemoral joints and sacroiliac joints. Spina bifida occulta S1, congenital. XR/XR KUB IMPRESSION: Nephrolithiasis, bilaterally. Overall less number of calcifications in the left kidney shadow. Electronically signed by: Ever Bowen MD 01/26/2025 02:03 PM EDT
--- OUTSIDE RECORDS SUMMARY | 2025-01-26 14:40 | XMS_ITS | Clinical Summary ---
Author Organization [facility] Address [address] [facility] [address] [place] [address] Phone Care Team Providers Care Coal Trimmer Machine Operator Name Role Phone Jim Beavers MD Primary Care Provider [phone] Allergies No known active allergies Medications allopurinol [...] Cancer Screening: Sigmoidoscopy 2003 Influenza Vaccine (#1) 2025 Hepatitis B Vaccine Aged Out No longe r eligible based on patient's age to complete this topic Insurance Care Teams Coal Trimmer Machine Operator Relationship Specialty Start Date End Date Jim Beavers MD [address] [address] PCP - General Family Medicine 07/12/21
--- OUTSIDE RECORDS SUMMARY | 2025-01-26 14:40 | XMS_ITS | Patient Health Record ---
Author Organization [facility] Address [address] [place] [id number] Care Team Providers Care Water Carter Name Role Phone TRIXIE HUBBARD Primary Care Provider Satinder Machado [phone] Reason For Referral No Information Medications Medication SIG (Take, Route, Frequency, Duration) Notes Start Date End Date Status Allopurinol 300 MG TAKE ONE TABLET BY M OUTH EVERY DAY Oral for 90 Active Pravastatin Sodium 20 MG TAKE ONE TABLET BY MOUTH EVERY DAY Oral for 90 Active hydroCHLOROthiazide 25 MG TAKE ONE TABLE T BY MOUTH EVERY DAY Oral for 90 Active Lisinopril 5 MG TAKE ONE TABLET BY M OUTH EVERY DAY Oral for 90 Active metFORMIN HCl 1000 MG TAKE ONE TABLET BY MOUTH TWICE A DAY WITH MEALS Oral for 90 Active glyBURIDE 5 MG TAKE ONE TABLET BY M OUTH EVERY DAY Oral for 30 Active Social History Tobacco Use: Social History Observation Description Date Details (start date - stop date) Former Smoker NA - NA Tobacco Use/Smoking Question Answer Notes Patient is a former smoker When did you stop smoking? 2008 How long has it been since you last smoked? 5-10 years Alcohol Screen Question Answer Notes Did you have a drink contain ing alcohol in the past year? Yes How often did you have a dri nk containing alcohol in the past year? Monthly or less (1 point) How many drinks did you have on a typical day when you were drinking in the past year? 1 or 2 drinks (0 point) How often did you have 6 or more drinks on one occasion in the past year? Never (0 point) Points 1 Interpretation Negative Section Notes: Nonsmoker; no sig alcohol Problems Problem Type SNOMED Code ICD Code Onset Dates Problem Status W/U Status Risk Notes Problem 248983446 Encounter for screening for malignant neoplasm of colon (Z12.11) Active confirmed Problem [id number] Preprocedural examination (Z01.818) Active confirmed Plan Of Treatment Pending Test Test Name Order Date GI BIOPSY 05/09/2017 Future Test Test Name Order Date COLONOSCOPY 02/05/2017 Insurance Providers Payer Name Payer Address Payer Phone Subscriber Number Group Number Insured Name Patient Relationship to Insured Coverage Start Date Coverage End Date [facility] [address] [facility] [place] [place] [phone] [id number] TORRIE JARAMILLO Self - patient is the insured Medical (General) History Medical History History ICD Code NIDDM Hyperlipidemia Hypertension Kidney stones--cystoscopy 01/2017, previo us ESWL Denies [place],CVA,Lung disease,renal disease Surgical History Surgery Date(Month/Year) Broken nose
== END 2025-01-26 13:51 | disposition home or self-care (01) ==
LOC: HO.US 13:50
PROVIDERS: PCP Family Medicine; Visit Provider Urology
DX: N20.0 Calculus of kidney (principal)
CPT/HCPCS: 74018; 76775

== ENCOUNTER → 2025-01-26 13:51 | Outpatient (BNV) | payer OTHER, SELFPAY | PROVIDERS: PCP Family Medicine; Visit Provider Radiology Diagnostic Radiology | DX: N20.0 Calculus of kidney (principal) | CPT/HCPCS: 74018; 76775 ==

== ENCOUNTER 2025-01-31 08:13 | Outpatient (REF) | payer OTHER, SELFPAY ==
--- OUTSIDE RECORDS SUMMARY | 2025-01-31 08:18 | XMS_ITS | Patient Health Record ---
Author Organization [facility] Address [address] [place] [phone] Care Team Providers Care Acid Purification Equipment Operator Name Role Phone TRIXIE HUBBARD Primary Care Provider Satinder Machado [phone] Reason For Referral No Information Medications Medication [...] Problem Status W/U Status Risk Notes Problem [id number] Encounter for screening for malignant neoplasm of colon (Z12.11) Active confirmed Problem [id number] Preprocedural examination (Z01.818) Active confirmed Plan Of Treatment Pending Test Test Name Order Date GI BIOPSY 05/09/2017 Future Test Test Name Order Date COLONOSCOPY 02/05/2017 Insurance Providers Payer Name Payer Address Payer Phone Subscriber Number Group Number Insured Name Patient Relationship to Insured Coverage Start Date Coverage End Date [facility] [address] [facility] [place] [phone] [id number] TORRIE JARAMILLO Self - patient is the insured Medical (General) History Medical History History ICD Code NIDDM Hyperlipidemia Hypertension Kidney stones--cystoscopy 01/2017, previo us ESWL Denies [place],CVA,Lung disease,renal disease Surgical History Surgery Date(Month/Year) Broken nose
--- OUTSIDE RECORDS SUMMARY | 2025-01-31 08:18 | XMS_ITS | Clinical Summary ---
Author Organization [facility] Address [address] [facility] [address] [place] [address] Phone Care Team Providers Care Commercial Baking Teacher Name Role Phone Jim Beavers MD Primary Care Provider [phone]- [phone] Allergies No known active allergies Medications allopurinol [...] to complete this topic Insurance Care Teams Commercial Baking Teacher Relationship Specialty Start Date End Date Jim Beavers MD [address] [address] PCP - General Family Medicine 07/12/21
[2025-01-31 11:10] LABS: MANUAL DIFF FLAG NO
[2025-01-31 11:23] LABS: Hematocrit 44.6 % (42.0-52.0); Hemoglobin 14.9 g/dl (14.0-18.0); Imm Gran Abs Auto 0.04 X10*3/uL (0.00-0.03); Imm Gran Pct Auto 0.8 % (0.0-0.4); Lymphocytes Absolute Auto 1.1 X10*3/uL (1.2-4.9); Mean Corpuscular HGB Conc 33.4 g/dl (31.0-36.0); Mean Corpuscular Hemoglobin 30.6 pg (27.0-33.0); Mean Corpuscular Volume 91.6 fL (80.0-98.0); NRBC Abs Auto 0.000 X10*3/uL (0.0-0.012); NRBC Pct Auto 0.0 /100WBC (0.0-0.2); Platelet Count 158 X10*3/uL (160-400); Red Blood Count 4.87 X10*6/uL (4.60-5.80); White Blood Count 5.2 X10*3/uL (4.8-10.8)
[2025-01-31 11:40] LABS: Appearance Urine Clear; Glucose Urine UA >=1000 mg/dL (Negative); PH 6.0 (5.0-9.0); Specific Gravity - Urine >= 1.030 (1.005-1.025); UMIC TRIGGER UA YES
[2025-01-31 11:48] LABS: Alanine Aminotransferase 14 U/L (0-40); Albumin Level 4.4 g/dL (3.5-5.0); Alkaline Phosphatase 108 U/L (39-117); Anion Gap 10 (12-20); Aspartate Amino Transferase 20 U/L (5-37); Blood Urea Nitrogen 32 mg/dL (9-16); Calcium 9.2 mg/dL (8.4-10.2); Carbon Dioxide 23 mmol/L (22-29); Chloride 112 mmol/L (96-108); Cholesterol 149 mg/dL (<200); Estimated Glomerular Filt Rate 46; HDL Cholesterol 26 mg/dL (>40); Potassium 4.3 mmol/L (3.3-5.1); Sodium 141 mmol/L (135-145); Total Protein 7.0 g/dL (6.5-8.0); Triglycerides 121 mg/dL (<150)
[2025-01-31 12:13] LABS: Microalbum/Creatinine Ratio Ur 70.2 ug/mg cr (<30)
== END 2025-01-31 08:14 | disposition home or self-care (01) ==
LOC: HO.WFDLDS 08:13
PROVIDERS: Visit Provider Family Medicine
DX: Z00.00 Encounter for general adult medical examination without abnormal findings (principal); N20.0 Calculus of kidney; R31.9 Hematuria, unspecified; N40.1 Benign prostatic hyperplasia with lower urinary tract symptoms; I10 Essential (primary) hypertension; Z12.5 Encounter for screening for malignant neoplasm of prostate; Z79.899 Other long term (current) drug therapy
CPT/HCPCS: 36415; 80053; 80061; 81001; 82043; 82570; 84153; 84443; 85025

== ENCOUNTER 2025-01-31 11:29 | Outpatient (AMB) | payer OTHER, SELFPAY ==
--- NOTE | 2025-01-31 11:29 | MHC.OFFVIS ---
Intake Visit Reasons: post op- KUB- [phone] Intake Note: Patient presents to office today via telehealth for post-op/KUB KUB 01/26 Renal US 01/26 Urology Medication:Allopurinol Antibiotic Allergy:none Blood Thinner:none Allergies No Known Allergies Allergy (Verified 01/31/25 11:31) Medication List - Last Reconciled 01/31/25 by Serina Goodman MD allopurinol 300 mg PO DAILY 90 days cholecalciferol (vitamin D3) 25 mcg PO DAILY 90 days dapagliflozin propanediol 5 mg PO QAM 90 days gemfibrozil 600 mg PO BID glipizide ER 20 mg (2 x 10 mg) PO QAM 90 days lisinopril 10 mg (1/2 x 20 mg) PO DAILY 90 days metformin 500 mg PO BID 90 days nitrofurantoin monohyd/m-cryst 100 mg (Macrobid) 100 mg PO BID 7 days oxycodone-acetaminophen 5-325 mg (Percocet) 1 tab PO Q6-8H PRN pravastatin 20 mg PO DAILY 90 days semaglutide (Ozempic) 1 mg (0.75 mL) subcut QWEEK 28 days HPI Comments Details: 01/31/25--Prasanna is a 69-year-old male who is status post Left ESWL on 12/15/2024. The patient is also followed for BPH. History of Present Illness - The patient is a 69-year-old male presenting for follow-up after extracorporeal shock wave lithotripsy (ESWL) for left kidney stone management and ongoing management of benign prostatic hyperplasia. - BPH- proscar 5 mg daily - Nephrolithiasis: The patient underwent ESWL on December 15 for a left kidney stone. - The renal ultrasound on January 262024 showed a reduction in the size of the left kidney stone. - The patient reported passing stone fragments post-procedure, indicating successful fragmentation. - There is a remaining stone on the right side, causing discomfort. Results - Renal ultrasound on January 26 showed a reduction in the size of the left kidney stone, right kidney stone. - CTAP-08/27/24--Nonobstructing stone in the lower pole of the right kidney measuring up to 13 mm. Nonobstructing 16 mm stone in the upper pole of the left kidney. Additional punctate mid kidney stone. Plan - Schedule ESWL for the right kidney stone - Continue monitoring and managing benign prostatic hyperplasia. 09/17/24-- here for office cysto: Cystoscopy findings- enlarged prostate, no suspicious bladder lesions. 69-year-old male presenting with hematuria. Previous evaluation with a CT scan identified nephrolithiasis, specifically kidney stones in both kidneys, with a significant stone in the left kidney. The patient's history includes prior lithotripsy treatment approximately 9-10 years ago. He experiences no urinary tract infections or alterations in voiding patterns. The exam identified benign prostatic hyperplasia, and a 5-alpha reductase inhibitor has been prescribed to address this. The initiation of the medication is indicative of the need to manage the prostatomegaly effectively and reduce any bleeding risks. The patient will undergo subsequent imaging to assess lithotripsy success with follow-ups scheduled accordingly. 09/07/24--Prasanna is a 69 year old male with history of kidney stones. The patient states he has seen Urology in the past and also is followed by nephrology. He states he has passed several stones and has also had lithotripsy procedure over 10 years ago. He currently has had some intermittent left-sided pain. I have reviewed CT imaging there are bilateral kidney stones largest on the left upper pole 16 mm. The patient has had intermittent gross hematuria. I have discussed reasons for blood in the urine may include but are not limited to kidney stones, cancer in the urinary tract, BPH, or inflammatory conditions of the urinary tract. I have discussed that although we know he has kidney stones workup to include cystoscopy evaluation, we will send urine for cytology. CTAP-08/27/24--Nonobstructing stone in the lower pole of the right kidney measuring up to 13 mm. No hydronephrosis or right-sided ureteral stones. Simple appearing left renal cysts measuring up to 3.5 cm for which no specific follow-up necessary. Nonobstructing 16 mm stone in the upper pole of the left kidney. Additional punctate mid kidney stone. [facility] Medical History Diabetes type 2, controlled Chronic kidney disease, stage 3a Essential hypertension Surgical History Hx of cystoscopy History of lithotripsy History of kidney stones Family History Father Heart problem Mother No problems noted. Brother No problems noted. Brother No problems noted. Son No problems noted. Sister No problems noted. Social History Housing: House Patient Tobacco Use Status: Never used Tobacco e-Cigarette/Vaping Use: Never Used Second Hand Smoke Exposure: No service: No Current occupational status: retired Current occupational exposures/hazards: No Cognitive needs: No Hearing needs: No Vision needs: No Review of Systems Const All systems reviewed & are unremarkable except as noted in HPI and below Reports no additional complaints Eyes Reports no additional complaints ENT Reports no additional complaints Card Reports no additional complaints Resp Reports no additional complaints GI Reports no additional complaints Reports as per HPI Musc Reports no additional complaints Skin/Breast Reports system reviewed and no additional complaints, except as documented Neuro Reports no additional complaints Psych Reports no additional complaints Endo Reports no additional complaints Bobby/Lymph Reports no additional complaints Aller/Immun Reports no additional complaints Telehealth Telehealth Telehealth Platform: [facility] Location of provider rendering services: practice address Location of patient: address on file Patient Identification confirmed using: Name, : Yes Telehealth method: voice only Patient verbally consented to treatment: Yes Patient verbally consented to billing insurance company: Yes Patient informed of any privacy concerns related to visit: Yes Minutes spent on Phone/Video with Pt.: 13 Results Reviewed Results Reviewed: Date of Service: 01/26/25 US renal Comparison: None Provided Findings: Right kidney 11.7 cm length. Left kidney 12.8 cm length. Small bilateral nonobstructing renal stones. Bilateral renal cysts also noted. No bilateral hydronephrosis. Normal bilateral renal echogenicity. Impression: Bilateral nonobstructing renal stones Date of Service: 08/27/24 CLINICAL HISTORY: R31.9 - Hematuria, unspecified CT abdomen and pelvis without contrast Comparison: None Findings: The lung bases are clear. Gallbladder, liver, spleen, pancreas and left adrenal gland are unremarkable. There is a right adrenal nodule measuring up to 2 cm seen on image 17 of series 2 most consistent with a lipid rich adenoma. Nonobstructing stone in the lower pole of the right kidney measuring up to 13 mm. No hydronephrosis or right-sided ureteral stones. Simple appearing left renal cysts measuring up to 3.5 cm for which no specific follow-up necessary. Nonobstructing 16 mm stone in the upper pole of the left kidney. Additional punctate mid kidney stone. There is dilation of the left ureter to the level of the bladder but no discrete filling defect is identified. This could indicate a recently passed stone. No bowel obstruction, pneumoperitoneum, or pneumatosis. Sigmoid diverticulosis without diverticulitis. Normal appendix. Prostate is mildly enlarged. No filling defects within the thin-walled bladder. No fluid collections or adenopathy. Small fat containing bilateral inguinal hernias. No vascular dilation. No acute fracture. IMPRESSION: Bilateral nonobstructing renal stones as described. There is mild dilation of the left ureter without discrete stone. This could indicate a recently passed stone. No bladder stones. Benign-appearing left renal cysts. Lipid rich right adrenal adenoma. Assessment & Plan Assessment & Plan (1) Renal calculus: Code(s): N20.0 - Calculus of kidney Category: Medical (2) Hematuria: Code(s): R31.9 - Hematuria, unspecified Category: Medical (3) BPH loc w urin obs/LUTS: Code(s): N40.1 - Benign prostatic hyperplasia with lower urinary tract symptoms Category: Medical Plan Plan - Schedule ESWL for the right kidney stone, considering the patient's discomfort and limited mobility. - Continue monitoring and managing benign prostatic hyperplasia. proscar 5 mg daily Medications: New finasteride (Proscar) 5 mg PO DAILY 90 tabs 3RF enlarged prostate Discontinued oxycodone-acetaminophen 5-325 mg (Percocet) Partial Fill upon patient request. Discontinued Reason: Patient Completed Course 1 tab PO Q6-8H PRN 10 tabs 0RF pain nitrofurantoin monohyd/m-cryst 100 mg (Macrobid) must administer with a meal/food Discontinued Reason: Patient Completed Course 100 mg PO BID 7 days 14 caps 0RF Patient Instructions: The patient had an opportunity to ask questions regarding treatment plan. The patient expressed understanding and agreement with the above treatment plan. The patient is aware they should contact our office by phone for worsening of their current condition or the appearance of new symptoms. Compliance is encouraged with any medications and followup testing that is ordered. It is a privilege to be allowed the opportunity to participate in the urologic care of your patient. If you have any questions or concerns regarding treatment for the above conditions please do not hesitate to contact me. The office telephone contact is [phone]. This note is constructed in part using voice recognition software. While every effort has been made to ensure accuracy medical coding manager errors may have been included. Yours sincerely, Serina Goodman MD Scribe Plan - Not visible on output: Patient was informed and verbally consented to the use of an ambient scribe for clinic note documentation during this visit. Coding Level of Care Code Tele Est Pt Level 3 (27847) Diagnoses Renal calculus N20.0 Hematuria R31.9 BPH loc w urin obs/LUTS N40.1
== END 2025-01-31 13:47 | disposition home or self-care (01) ==
LOC: HO.HUSH 11:29
PROVIDERS: PCP Family Medicine; Visit Provider Urology
DX: N20.0 Calculus of kidney (principal); R31.9 Hematuria, unspecified; N40.1 Benign prostatic hyperplasia with lower urinary tract symptoms
CPT/HCPCS: 99024

== ENCOUNTER 2025-02-09 10:14 | Outpatient (AMB) | payer OTHER, SELFPAY ==
--- NOTE | 2025-02-09 10:16 | HO.NEPHOV_ITS ---
Vital Signs 02/09/25 10:17 Height 6 ft 1 in Weight 210 lb 2 oz BMI 27.7 BP 100/70 Blood Pressure Location Rt brachial Position Sitting Pulse 97 Pulse Source Pulse Oximeter Pulse Oximetry (%) 95 Oxygen Delivery Method Room Air Intake Visit Reasons: Chronic kidney disease-Conf Medical Claims Representative Required: No Accompanied by: Self / Same As Patient Allergies No Known Allergies Allergy (Verified 02/09/25 10:17) HPI Comments Details: Mr Cote was seen in follow-up of his chronic kidney disease stage 3. He has diabetes for over 15 years. He is on Ozempic, metformin and Farxiga . He has hypertension and has been on lisinopril. He has cut back sodium in the diet. He does not check his blood sugar daily. Has no history of significant proteinuria, neuropathy or retinopathy. He has history of nephrolithiasis (calcium oxalate). He is not taking nonsteroidal anti-inflammatory medications. He denies any history of coronary artery disease, chest pain, congestive heart failure, CVA or history of any prostate issues. He has been having right flank pain. He had undergone ESWL on left. [facility] Medical History Diabetes type 2, controlled Chronic kidney disease, stage 3a Essential hypertension Surgical History Hx of cystoscopy History of lithotripsy History of kidney stones Family History Father Heart problem Mother No problems noted. Brother No problems noted. Brother No problems noted. Son No problems noted. Sister No problems noted. Social History Housing: House Patient Tobacco Use Status: Never used Tobacco e-Cigarette/Vaping Use: Never Used Second Hand Smoke Exposure: No service: No Current occupational status: retired Current occupational exposures/hazards: No Cognitive needs: No Hearing needs: No Vision needs: No Review of Systems Const All systems reviewed & are unremarkable except as noted in HPI and below Physical Exam Const General: comfortable and no acute distress Orientation/consciousness: patient oriented x3 HEENT Head: Yes normocephalic Mouth: Normal oral and palatal mucosa present Eyes EOM: EOMs intact bilaterally Neck Neck: Yes supple Resp Auscultation: clear to auscultation bilaterally Cardio Jugular venous distension: no JVD Rate: regular rate GI Palpation (GI): Soft to palpation Auscultation: normal bowel sounds General: Yes no CVA tenderness Back/Spine/Pelvis Back: no CVA tenderness Skin General skin exam: no rashes or lesions noted Neuro General: patient oriented x3 and moves all extremities Extrem General: Yes no pedal edema Results Reviewed Nephrology Results: 2 Hgb, (14.0-18.0) 14.9 g/dl 01/31/25 WBC, (4.8-10.8) 5.2 X10*3/uL 01/31/25 Plt Count, (160-400) 158 X10*3/uL L 01/31/25 Sodium, (135-145) 141 mmol/L 01/31/25 Potassium, (3.3-5.1) 4.3 mmol/L 01/31/25 Chloride, (96-108) 112 mmol/L H 01/31/25 Carbon Dioxide, (22-29) 23 mmol/L 01/31/25 BUN, (9-16) 32 mg/dL H 01/31/25 Creatinine, (0.5-1.4) 1.51 mg/dL H 01/31/25 Calcium, (8.4-10.2) 9.2 mg/dL Δ 01/31/25 Urine Protein, (Neg-Trace) Trace mg/dL 01/31/25 Urine Creatinine 85.45 mg/dL 01/31/25 Renal US 01/26/25 Assessment & Plan Assessment & Plan (1) Essential hypertension: Code(s): I10 - Essential (primary) hypertension Category: Medical (2) Chronic kidney disease, stage 3a: Code(s): N18.31 - Chronic kidney disease, stage 3a Category: Medical (3) Renal calculus: Code(s): N20.0 - Calculus of kidney Category: Medical Plan Rene has 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 His serum creatinine is fairly stable. His hemoglobin A1c can be better. He can continue on the current dose of lisinopril, which I may increase with time. He is tolerating Farxiga well. His volume status is optimal. His blood pressure is at goal . He should be on a low-sodium diet. He should lose some weight. He should maintain very good hydration and avoid nonsteroidal anti-inflammatories. CT scan ordered. Needs Urology follow up. I intend to start him on HCTZ and K citrate at next visit. I did not make any medication changes today. All his questions and concerns were addressed. Follow-up lab work ordered. Follow-up given Orders: Orders Electrolytes Today I10 - Essential (primary) hypertension, N18.31 - Chronic kidney disease, stage 3a, N20.0 - Calculus of kidney Blood Urea Nitrogen Today I10 - Essential (primary) hypertension, N18.31 - C hronic kidney disease, stage 3a, N20.0 - Calculus of kidney CT kidney stone Today N20.0 - Calculus of kidney Protein Creatinine Ratio, Ur Today I10 - Essential (primary) hypertension, N18.31 - Chronic kidney disease, stage 3a, N20.0 - Calculus of kidney Creatinine Today I10 - Essential (primary) hypertension, N18.31 - Chronic kidney disease, stage 3a, N20.0 - Calculus of kidney Coding Level of Care Code Est Pt Level 4 (06051) Diagnoses Essential hypertension I10 Chronic kidney disease, stage 3a N18.31 Renal calculus N20.0
[2025-02-09 10:17] VITALS: BP 100/70; PULSE 97; O2SAT 95; BMI 27.7
--- OUTSIDE RECORDS SUMMARY | 2025-02-09 11:04 | XMS_ITS | Clinical Summary ---
Author Organization [facility] Address [address] [facility] [address] [place] [address] Phone Care Team Providers Care Marine Machinist Name Role Phone Jim Beavers MD Primary Care Provider [phone] Allergies No known active allergies Medications allopurinol [...] to complete this topic Insurance Care Teams Marine Machinist Relationship Specialty Start Date End Date Jim Beavers MD [address] [address] PCP - General Family Medicine 07/12/21
--- OUTSIDE RECORDS SUMMARY | 2025-02-09 11:04 | XMS_ITS | Patient Health Record ---
Author Organization [facility] Address [address] [place] [address] Care Team Providers Care Court Advocate Name Role Phone TRIXIE HUBBARD Primary Care Provider Satinder Machado [phone] Reason For Referral No Information Medications Medication [...] Problem Status W/U Status Risk Notes Problem [id number] Encounter for screening for malignant neoplasm of colon (Z12.11) Active confirmed Problem [id number] Preprocedural examination (Z01.818) Active confirmed Plan Of Treatment Pending Test Test Name Order Date GI BIOPSY 05/09/2017 Future Test Test Name Order Date COLONOSCOPY 02/05/2017 Insurance Providers Payer Name Payer Address Payer Phone Subscriber Number Group Number Insured Name Patient Relationship to Insured Coverage Start Date Coverage End Date [facility] [address] [facility] [place] [phone] [id number] TORRIE JARAMILLO Self - patient is the insured Medical (General) History Medical History History ICD Code NIDDM Hyperlipidemia Hypertension Kidney stones--cystoscopy 01/2017, previo us ESWL Denies [place],CVA,Lung disease,renal disease Surgical History Surgery Date(Month/Year) Broken nose
== END 2025-02-09 11:20 | disposition home or self-care (01) ==
LOC: HO.HKA 10:15
PROVIDERS: PCP Family Medicine; Visit Provider Internal Medicine Nephrology
DX: I10 Essential (primary) hypertension (principal); N18.31 Chronic kidney disease, stage 3a; N20.0 Calculus of kidney
CPT/HCPCS: 99214

== ENCOUNTER 2025-02-09 13:48 | Outpatient (REF) | payer OTHER, SELFPAY ==
--- NOTE | ~2025-02-09 | CT_ITS ---
EXAMINATION: CT ABDOMEN PELVIS WITHOUT IV CONTRAST HISTORY: N20.0 - Calculus of kidney COMPARISON: Comparison is made with the prior examination dated 08/27/2024. TECHNIQUE: CT scan of the abdomen and pelvis was performed without contrast using standard departmental protocol. Coronal and sagittal reformatted images were generated and reviewed. Oral contrast material was not administered per department protocol. This CT exam was performed with one or more of the following dose reduction techniques: automated exposure control, adjustment of the mA and/or kV according to patient size, use of iterative reconstruction technique. DLP: 650 mGy-cm FINDINGS: LOWER CHEST: The visualized lung bases are clear. There is no pleural effusion. CARDIOVASCULATURE: The heart is normal in size. There is no pericardial effusion. LIVER: The liver is normal in size and contour. The liver has an unremarkable unenhanced appearance. GALLBLADDER / BILE DUCTS: The gallbladder is unremarkable. There is no intra or extrahepatic biliary ductal dilatation. SPLEEN: The spleen is mildly enlarged. PANCREAS: The pancreas has an unremarkable unenhanced appearance. ADRENAL GLANDS: There is a 2.4 x 1.4 cm right adrenal nodule which measures -11 HU in density, consistent with an adenoma. The left adrenal gland is unremarkable. KIDNEYS/RETROPERITONEUM: There is a 13 mm nonobstructing calculus in the lower pole calyx of the right kidney and a 7 mm nonobstructing calculus at the lower pole of the left kidney. There is no hydronephrosis or hydroureter. No ureteral calculi are identified. There is a 3.4 cm cyst interpolar region of the left kidney. Smaller left renal cysts are also noted. LYMPH NODES: No retroperitoneal lymphadenopathy is identified in the abdomen or pelvis. VASCULATURE: The abdominal aorta is normal in caliber. MESENTERY/PERITONEUM: No free fluid. No masses. There is no free intraperitoneal gas. STOMACH: The stomach is unremarkable. SMALL BOWEL: The small bowel is normal in caliber. COLON: There is a moderate amount of stool throughout the colon. There is diffuse colonic diverticulosis without evidence of diverticulitis. APPENDIX: Normal. URINARY BLADDER/PELVIC ORGANS: The urinary bladder is collapsed, limiting evaluation. The prostate is normal in size. BONES / SOFT TISSUES: There is degenerative disc disease of the spine. CT/CT kidney stone IMPRESSION: 1. Bilateral nephrolithiasis as described. No evidence of ureteral obstruction. 2. 2.4 x 1.4 cm right adrenal adenoma. 3. Mild splenomegaly. 4. Colonic diverticulosis without evidence of diverticulitis. Moderate amount of stool throughout the colon. Electronically signed by: Satinder Alaniz MD 02/09/2025 02:43 PM EDT
== END 2025-02-09 13:49 | disposition home or self-care (01) ==
LOC: HO.CT 13:48
PROVIDERS: PCP Family Medicine; Visit Provider Internal Medicine Nephrology
DX: I12.9 Hypertensive chronic kidney disease with stage 1 through stage 4 chronic kidney disease, or unspecified chronic kidney disease (principal); E11.22 Type 2 diabetes mellitus with diabetic chronic kidney disease; N18.31 Chronic kidney disease, stage 3a; N20.0 Calculus of kidney; Z79.84 Long term (current) use of oral hypoglycemic drugs; Z79.899 Other long term (current) drug therapy
CPT/HCPCS: 74176

== ENCOUNTER → 2025-02-09 13:52 | Outpatient (BNV) | payer OTHER, SELFPAY | PROVIDERS: PCP Family Medicine; Visit Provider Radiology Diagnostic Radiology | DX: N20.0 Calculus of kidney (principal); D35.01 Benign neoplasm of right adrenal gland; K57.30 Diverticulosis of large intestine without perforation or abscess without bleeding; K59.00 Constipation, unspecified | CPT/HCPCS: 74176 ==

== ENCOUNTER 2025-02-09 16:21 | Outpatient (AMB) | payer OTHER, SELFPAY ==
--- NOTE | 2025-02-09 16:55 | MHC.PC.OV ---
Vital Signs 02/09/25 17:01 Height 6 ft 1 in Weight 210 lb 4 oz BMI 27.7 BP 114/64 Blood Pressure Location Rt brachial Position Sitting Respiration 14 Pulse 124 H Pulse Source Pulse Oximeter Temp 98.5 F Temp Source Oral Pulse Oximetry (%) 98 Oxygen Delivery Method Room Air Intake Visit Reasons: f/u HTN, DM, chronic conditions Intake Note: patient is scheduled to follow up for dm and htn and chronic conditions Cream Buyer Required: No Allergies No Known Allergies Allergy (Verified 02/09/25 16:59) Tobacco use date assessed: 06/08/24 Dental Screening Dental Screen Date: 06/08/24 HPI f/u HTN, DM, chronic conditions HPI Details 69 y/o male presents to f/u HTN, diabetes, chronic conditions. Blood pressure today 114/64, 124p. He is on lisinopril 10mg. A1c today 02/09/25 is 6.7%. He is on metformin 500mg b.i.d, glipizide 20mg daily. Had a diabetic eye exam in September - up to date. Showed no diabetic retinopathy. Had been following up with nephrology for CKD. [facility] Medical History (Updated 02/09/25 @ 17:28 by John Gan) Diabetes type 2, controlled Chronic kidney disease, stage 3a Essential hypertension Surgical History Hx of cystoscopy History of lithotripsy History of kidney stones Family History Father Heart problem Mother No problems noted. Brother No problems noted. Brother No problems noted. Son No problems noted. Sister No problems noted. Social History Housing: House Patient Tobacco Use Status: Never used Tobacco e-Cigarette/Vaping Use: Never Used Second Hand Smoke Exposure: No service: No Current occupational status: retired Current occupational exposures/hazards: No Cognitive needs: No Hearing needs: No Vision needs: No Questionnaire Thrive Questionnaire Date Thrive assessed: 09/03/24 I am a: Patient What is your living situation today?: I have a steady place to live Within the past 12 months, did the food you bought not last and you didn't have the money to get more?: Never true Within the past 12 months, did you worry whether your food would run out before you got money to buy more?: Never true Do you have trouble paying for medicines?: No Do you have trouble getting transportation to medical appointments?: No Do you have trouble paying your heating and electricity bill?: No Do you have trouble taking care of your child, family member or friend?: No Do you have trouble with day-to-day activities such as bathing, preparing meals, shopping, managing finances, etc.?: No Are you currently unemployed and looking for a job?: No Are you interested in more education?: No Please select the resources that you would like help with: None Currently or been in a relationship where the following occur: No concerns reported THRIVE Score: 0 FREDI-7 AMB Questionnaire FREDI-7 Date FREDI - 7 assessed: 10/22/23 Source: Developed by Drs. Satinder Gaffney, Kristi Cedeno, Ryan Austin and colleagues, with an educational milagros from [employer]. Review of Systems Const Denies chills, Denies fatigue, Denies fever(s), Denies headache(s) and Denies weakness ENT Denies dizziness and Denies headache(s) Card Denies dyspnea Resp Denies cough, Denies dyspnea, Denies wheezing and Denies other (shortness of breath) Musc Denies numbness and Denies tingling Neuro Denies dizziness, Denies headache(s), Denies numbness, Denies tingling and Denies weakness Psych Denies anxiety and Denies depression Endo Denies fatigue Aller/Immun Denies wheezing Physical exam (Primary Care) Vital Signs: Last Vital Signs Temp 98.5 F 02/09/25 17:01 Pulse 124 H 02/09/25 17:01 Resp 14 02/09/25 17:01 BP 114/64 02/09/25 17:01 Pulse Ox 98 02/09/25 17:01 Oxygen Delivery Method Room Air 02/09/25 17:01 BMI result Body Mass Index 27.7 Tobacco/Smoking Status: Tobacco use Status Tobacco use date assessed 06/08/24 02/09/25 16:55 Patient Tobacco Use Status Never used Tobacco 02/09/25 16:55 e-Cigarette/Vaping Use Never Used 02/09/25 16:55 Thrive Assessment: Date of Thrive Assessment Date Thrive assessed 09/03/24 02/09/25 16:55 Currently or been in a relationship where the following occur: No concerns reported Const General: well developed; No acute distress Nutritional Appearance: well nourished Orientation/consciousness: patient oriented x3 HENMT Head: Yes normocephalic and Yes atraumatic Eyes General: appearance normal, both eyes and all related structures Pupils: Equal, round and reactive pupils present EOM: EOMs intact bilaterally Resp Effort & Inspection: normal respiratory effort Neuro General: patient oriented x3 and gait normal Cranial nerves: Yes Equal, round and reactive pupils present Psych Affect: normal affect Coding Level of Care Code Est Pt Level 4 (48752) Diagnoses Essential hypertension I10 Diabetes type 2, controlled E11.9 Chronic kidney disease, stage 3a N18.31 Assessment & Plan Assessment & Plan (1) Essential hypertension: Code(s): I10 - Essential (primary) hypertension Category: Medical Plan: Blood pressure is controlled. Goal is less than 140/90 Continue current medications (2) Diabetes type 2, controlled: Code(s): E11.9 - Type 2 diabetes mellitus without complications Category: Medical Plan: A1c today is 6.7%. Controlled. Goal is less than 7.0% Continue current medication regimen Continue diet low in sugars and starches Continue exercise (3) Chronic kidney disease, stage 3a: Code(s): N18.31 - Chronic kidney disease, stage 3a Category: Medical Plan: Creatinine level did rise with most recent lab work last week. Continue good blood pressure and blood sugar control Avoiding NSAIDs Encouraged good hydration Follow-up with nephrology Will continue follow Orders: Orders Comprehensive [place]. Panel Fast 02/09/25 Z00.00 - Encounter for general adult medical examination without abnormal findings Complete Blood Count Auto Diff 02/09/25 Z00.00 - Encounter for general adult medical examination without abnormal findings Lipid Panel 02/09/25 Z00.00 - Encounter for general adult medical examination without abnormal findings Prostate Specific Antigen Scr 02/09/25 Z12.5 - Encounter for screening for malignant neoplasm of prostate Microalbumin, Random (w Creat) 02/09/25 I10 - Essential (primary) hypertension TSH reflex Free T4 02/09/25 Z00.00 - Encounter for general adult medical examination without abnormal findings UA CC w/rflx Micro + Cult 02/09/25 Z00.00 - Encounter for general adult medical examination without abnormal findings Hemoglobin A1c 02/09/25 R73.01 - Impaired fasting glucose
[2025-02-09 17:01] VITALS: BP 114/64; PULSE 124; RESP 14; TEMP 36.9; O2SAT 98; BMI 27.7
== END 2025-02-09 17:05 | disposition home or self-care (01) ==
LOC: HO.HMCFM 16:22
PROVIDERS: PCP Family Medicine; Visit Provider Family Medicine
DX: I10 Essential (primary) hypertension (principal); E11.9 Type 2 diabetes mellitus without complications; N18.31 Chronic kidney disease, stage 3a

== ENCOUNTER → 2025-03-16 07:30 | Outpatient (BNV) | payer OTHER, SELFPAY | PROVIDERS: PCP Family Medicine; Visit Provider Radiology Diagnostic Radiology | DX: N20.0 Calculus of kidney (principal) | CPT/HCPCS: 74018 ==

== ENCOUNTER 2025-03-16 07:56 | Day surgery (SDC) | payer OTHER, SELFPAY ==
--- OUTSIDE RECORDS SUMMARY | 2025-02-22 14:43 | XMS_ITS | Patient Health Record ---
Author Organization [facility] Address [address] [place] [address] Care Team Providers Care Test Desk Operator Name Role Phone TRIXIE HUBBARD Primary Care Provider Satinder Machado [phone] Reason For Referral No Information Medications Medication [...] former smoker When did you stop smoking? 2007 How long has it been since you [...] Problem Status W/U Status Risk Notes Problem [id number] Encounter for screening for malignant neoplasm of colon (Z12.11) Active confirmed Problem [id number] Preprocedural examination (Z01.818) Active confirmed Plan Of Treatment Pending Test Test Name Order Date GI BIOPSY 05/09/2017 Future Test Test Name Order Date COLONOSCOPY 02/05/2017 Insurance Providers Payer Name Payer Address Payer Phone Subscriber Number Group Number Insured Name Patient Relationship to Insured Coverage Start Date Coverage End Date [facility] [address] [facility] [place] [phone] [id number] TORRIE JARAMILLO Self - patient is the insured Medical (General) History Medical History History ICD Code NIDDM Hyperlipidemia Hypertension Kidney stones--cystoscopy 01/2017, previo us ESWL Denies [place],CVA,Lung disease,renal disease Surgical History Surgery Date(Month/Year) Broken nose
--- OUTSIDE RECORDS SUMMARY | 2025-02-22 14:43 | XMS_ITS | Clinical Summary ---
Author Organization [facility] Address [address] [facility] [address] [place] [address] Phone Care Team Providers Care Silver Wrapper Name Role Phone Jim Beavers MD Primary Care Provider [phone] Allergies No known active allergies Medications allopurinol [...] to complete this topic Insurance Care Teams Silver Wrapper Relationship Specialty Start Date End Date Jim Beavers MD [address] [address] PCP - General Family Medicine 07/12/21
[2025-03-11 09:30] VITALS: BMI 27.7
--- NOTE | 2025-03-15 10:01 | HO.ANESPROP2 ---
Documented by User: Julienne Barragan NP 03/15/25 10:09 HPI - Anesthesia Eval Consult details Narrative: 69yo M for Right Lithotripsy ESW s/p same 12/2024 with TIVA Follows [facility] renal for 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 Stable at 01/2025 office visit with creat @ 1.5 Anesthesia Pre-Procedure Meds Is the patient on any of the following meds?: GLP1/DPP4 and SGLT2 Inhib PMFSH Active Problems Active Problems: All Active Problems BPH loc w urin obs/LUTS (Acute) Renal calculus (Acute) Hematuria (Acute) Hand pain (Acute) Proteinuria (Acute) Elevated PSA (Acute) Low HDL (under 40) (Acute) Bacteriuria (Acute) Immunization counseling (Acute) Screening for prostate cancer (Acute) Screening for colon cancer (Acute) Adult general medical exam (Acute) Screening-pulmonary TB (Acute) Microalbuminuria (Acute) Screening for tuberculosis (Acute) Renal failure (Acute) Hypertriglyceridemia (Acute) Diabetes type 2, controlled (Acute) Chronic kidney disease, stage 3a (Acute) Essential hypertension (Acute) Past Medical History Medical History Renal calculi Diabetes type 2, controlled Chronic kidney disease, stage 3a Essential hypertension Family History Family History Father Heart problem Mother No problems noted. Brother No problems noted. Brother No problems noted. Son No problems noted. Sister No problems noted. Family history of problems with anesthesia: No Surgical History Surgical History Hx of cystoscopy History of lithotripsy History of kidney stones History of Problems with Anesthesia: No Social History Social History Housing: House Patient Tobacco Use Status: Former Tobacco user e-Cigarette/Vaping Use: Never Used Second Hand Smoke Exposure: No Have you been hit, kicked, punched, or otherwise hurt by someone within the past year? If so, by whom?: No Are you DNR?: No Advance Directives: No Advance Directives Information Provided: Yes service: No Current occupational status: retired Current occupational exposures/hazards: No Cognitive needs: No Hearing needs: No Vision needs: No Meds Allergies Allergy/AdvReac Type Severity Reaction Status Date / Time No Known Allergies Allergy Verified 02/09/25 16:59 Exam Height,Weight and Vital Signs: Height 6 ft 1 in Weight 95.254 kg Pertinent Lab Results Pertinent Lab Results: Laboratory Tests 01/31/25 08:18 WBC 5.2 Hgb 14.9 Hct 44.6 Plt Count 158 L Sodium 141 Potassium 4.3 Chloride 112 H Carbon Dioxide 23 BUN 32 H Creatinine 1.51 H Assessment and Plan Final Anesthetic Review Family History of Problems with Anesthesia: No History of Problems with Anesthesia: No Documented by User: Tristan Fajardo MD 03/16/25 09:34 HPI - Anesthesia Eval Anesthesia Pre-Procedure Meds If yes to any meds - educate patient: Pt education - increased risk of aspiration and/or euvolemic DKA PMFSH Past Medical History Medical History Renal calculi Diabetes type 2, controlled Chronic kidney disease, stage 3a Essential hypertension Functional capacity: independent ambulation Family History Family History Father Heart problem Mother No problems noted. Brother No problems noted. Brother No problems noted. Son No problems noted. Sister No problems noted. Surgical History Surgical History Hx of cystoscopy History of lithotripsy History of kidney stones Social History Social History Housing: House Patient Tobacco Use Status: Former Tobacco user e-Cigarette/Vaping Use: Never Used Second Hand Smoke Exposure: No Have you been hit, kicked, punched, or otherwise hurt by someone within the past year? If so, by whom?: No Are you DNR?: No Advance Directives: No Advance Directives Information Provided: Yes service: No Current occupational status: retired Current occupational exposures/hazards: No Cognitive needs: No Hearing needs: No Vision needs: No Meds Allergies Allergy/AdvReac Type Severity Reaction Status Date / Time No Known Allergies Allergy Verified 02/09/25 16:59 Exam Exam Date and Time: 03/16/2025 Airway Mallampati Class: II TM Dist: >3cm Neck ROM: Full Denture: Upper Partial: Lower Loose/Missing/Broken Teeth: Yes Heart: rrr Lungs: cta Other: normal Assessment and Plan Assessment Anesthesia Assessment: Anesthesia Plan Discussed Final Anesthetic Review NPO: Yes ASA Class: II Final Preanesthetic Review: No Changes in Pt Med Stat, Meds/Allgs Chart Reviewed, Consent Obtained/Reviewed and Anes Risks/Benef Reviewed Patient Risk: Low Procedure Risk: Low Anesthetic Plan Anesthetic Plan: GA Disposition: Standard PACU
--- NOTE | ~2025-03-16 | XR_ITS ---
EXAMINATION: XR ABDOMEN KUB CLINICAL INDICATION: right renal stone COMPARISON: January 26, 2025. Correlated to CT abdomen pelvis dated February 09, 2025. TECHNIQUE: AP view of the abdomen. FINDINGS: 15 mm calcification overlapping the right kidney shadow. 4.6 mm calcification overlapping the left kidney shadow. No intestinal obstruction pattern. Abundant stool. Multilevel thoracolumbar spondylosis. Degenerative changes in the symphysis pubis. Mild degenerative changes in the coxofemoral joints and sacroiliac joints. XR/XR KUB IMPRESSION: Nephrolithiasis, bilaterally. Electronically signed by: Ever Bowen MD 03/16/2025 09:18 AM EDT
[2025-03-16 08:19] VITALS: BP 141/80; PULSE 68; RESP 16; TEMP 36.4; O2SAT 96; BMI 28.2
[2025-03-16 08:30] LABS: Glucose, Whole Blood 168 mg/dL (60-115)
[2025-03-16] MEDS: Lactated Ringers 1,000 ML 100 ML IVCONT (08:32)
--- NOTE | 2025-03-16 09:57 | MHC.SHP ---
Pre-Procedural Eval Section A - 24 Hr Update-Section A only Date of Service: 03/16/25 The patient is an INPATIENT: No The patient has been examined within 24 hours of the surgical procedure. The History & Physical has been completed within 30 days and I have reviewed it.: Yes Section B - Complete if H&P > 30 days Chief Complaint: Calculus of kidney, right Allergies: Allergies Allergy/AdvReac Type Severity Reaction Status Date / Time No Known Allergies Allergy Verified 02/09/25 16:59 Plan Diagnosis/Plan: Unchanged I have reviewed the history and physical and performed a pertinent physical examination on my patient. No changes have occurred unless specified. Right ESWL. Discussed risks to include but not limited to, blood in the urine, bruising to the skin, kidney hematoma, possible need for another procedure if a stone fragment obstructs the ureter while passing, possible need to repeat procedure if stone is not completely fragmented. Time Spent With Patient Time: Total time managing care of this patient today ____ minutes.
--- NOTE | 2025-03-16 09:58 | W.PM.OPN ---
Operative Note Operative Note Date of Service: 03/16/25 Narrative: PreOperative Diagnosis:? ?Right Renal stone Post Operative Diagnosis:?Right? Renal stone Procedure:?Right? ESWL Surgeon:?Dr Serina Goodman Anesthesia:? MAC Indications for procedure: The patient understands there is a risk of bruising or hematoma to the kidney, infection, and stone migration following the procedure and subsequent intervention may be required.? - Imaging 12 mm x 15 mm stone Procedure: After informed consent was verified the patient was brought to the operating room and placed in a supine position.? Anesthesia was performed per protocol. Safety pause time-out was performed. Imaging was displayed in the room and laterality confirmed. ESWL was performed.?The stone was visualized on both fluoroscopy and ultrasound.? Shockwave lithotripsy was performed, with a maximum rate of 120 hertz. After the first 300 shocks a pause for 3 minutes was completed.? A total of 2500 shocks to a maximum of power of 20 with a maximum rate of 120 hertz.? Good fragmentation of the stone was appreciated. The patient tolerated the procedure well and was transferred to the recovery area upon completion. Complications: None
--- NOTE | 2025-03-16 09:58 | PC.NURSE ---
one liter received in preop ivf
[2025-03-16 10:37] VITALS: BP 124/72; PULSE 68; RESP 16; TEMP 36.3; O2SAT 94
[2025-03-16 10:42] VITALS: BP 122/75; PULSE 64; RESP 18; O2SAT 94
[2025-03-16 10:47] VITALS: BP 124/76; PULSE 62; RESP 15; O2SAT 95
[2025-03-16 10:52] VITALS: BP 125/75; PULSE 69; RESP 15; O2SAT 95
[2025-03-16 11:07] VITALS: BP 129/80; PULSE 69; RESP 15; TEMP 36.3; O2SAT 97
== END 2025-03-16 11:50 | disposition home or self-care (01) ==
PROVIDERS: PCP Family Medicine; Visit Provider Urology
PROC: (CPT 50590; principal; 2025-03-16 09:30)
DX: N20.0 Calculus of kidney (principal); Z87.442 Personal history of urinary calculi; E11.22 Type 2 diabetes mellitus with diabetic chronic kidney disease; I12.9 Hypertensive chronic kidney disease with stage 1 through stage 4 chronic kidney disease, or unspecified chronic kidney disease; N18.31 Chronic kidney disease, stage 3a; Z79.84 Long term (current) use of oral hypoglycemic drugs; Z79.85 Long-term (current) use of injectable non-insulin antidiabetic drugs; Z79.899 Other long term (current) drug therapy; Z87.891 Personal history of nicotine dependence
CPT/HCPCS: 50590; 74018; 82947; J0131; J0690; J1100; J1938; J2250; J2405; J2704; J3010

== ENCOUNTER → 2025-03-16 07:56 | Outpatient (BNV) | payer OTHER, SELFPAY | PROVIDERS: PCP Family Medicine; Visit Provider Urology | DX: N20.0 Calculus of kidney (principal) | CPT/HCPCS: 50590 ==

== ENCOUNTER 2025-04-27 14:55 | Outpatient (REF) | payer OTHER, SELFPAY ==
--- NOTE | ~2025-04-27 | US_ITS ---
EXAMINATION: US RETROPERITONEAL LIMITED (RENAL ONLY) CLINICAL INFORMATION: Renal stones COMPARISON: Previous renal ultrasound January 2025, CT of the abdomen and pelvis most recent. January 2025 and KUB March 2025 TECHNIQUE: Real-time imaging of the kidneys. FINDINGS: RIGHT KIDNEY: 10.5 x 4.9 x 6.3 cm (SAG x AP x TRV). The kidney is normal in size, contour, and echogenicity. Renal cortical thickness is normal. There is a 5 mm stone in the lower pole. There is an anechoic perinephric fluid collection. This measures 11 x 5 x 2.5 cm. No hydronephrosis. LEFT KIDNEY: 12 x 7 x 6 cm (SAG x AP x TRV). The kidney is normal in size, contour, and echogenicity. Renal cortical thickness is normal. 3.6 x 2.7 x 2.8 cm simple cyst exophytic to the midpole. 2.5 and 2.5 x 2.1 cm simple cyst exophytic to the upper pole. 1.6 x 1.4 x 1.6 cm simple cyst exophytic to the midpole. 7 x 4 x 6 mm stone in the lower pole. No hydronephrosis. No perinephric collection. US/US renal BI IMPRESSION: Right: 5 mm right lower pole stone. No hydronephrosis. Anechoic fluid collection adjacent to the right kidney measuring 11 x 5 x 2.5 cm. This probably represents a resolving hematoma postlithotripsy. Left: 7 mm left lower pole stone. No hydronephrosis. Several simple cysts largest measuring 2.8 x 3.6 cm. Electronically signed by: Emely Wood MD 04/27/2025 03:35 PM EDT
== END 2025-04-27 14:56 | disposition home or self-care (01) ==
LOC: HO.HMGCX 14:55
PROVIDERS: PCP Family Medicine; Visit Provider Urology
DX: N20.0 Calculus of kidney (principal)
CPT/HCPCS: 76775

== ENCOUNTER → 2025-04-27 14:57 | Outpatient (BNV) | payer OTHER, SELFPAY | PROVIDERS: PCP Family Medicine; Visit Provider Radiology Diagnostic Radiology | DX: N20.0 Calculus of kidney (principal); N28.1 Cyst of kidney, acquired | CPT/HCPCS: 76775 ==

== ENCOUNTER 2025-04-29 11:10 | Outpatient (REF) | payer OTHER, SELFPAY | END 2025-04-29 11:11 | disposition home or self-care (01) | LOC: HO.LAB 11:10 | PROVIDERS: PCP Family Medicine; Visit Provider Urology | DX: Z13.89 Encounter for screening for other disorder (principal) ==

== ENCOUNTER 2025-04-29 11:10 | Outpatient (AMB) | payer OTHER, SELFPAY ==
--- NOTE | 2025-04-29 11:14 | A.OFFVIS_ITS ---
Intake Visit Reasons: ESWL follow up/KUB/US Intake Note: Patient presents to office today for ESWL follow up/KUB/US * Renal US 04/27 Urology Medication:Allopurinol,Finasteride Antibiotic Allergy:none Blood Thinner:none Allergies No Known Allergies Allergy (Verified 04/29/25 11:19) HPI Comments Details: 04/29/25--Prasanna is status post Right ESWL History of Present Illness The patient is a 69-year-old male presenting with follow-up for kidney stones and management of an enlarged prostate. The patient underwent extracorporeal shock wave lithotripsy (ESWL) on the right side on March 16, 2025, for kidney stones. Post-procedure, the ultrasound revealed a few remaining fragments, but the patient reported feeling fine after the procedure. The patient has a history of recurrent kidney stones and associated pain, which he initially attributed to the stones but later realized was also due to lower back issues. The patient has experienced lower back pain, which he initially thought was rel ated to kidney stones. He has not consulted a back specialist but has made lifestyle changes such as wearing orthotic shoes and avoiding barefoot walking, which he hopes will alleviate the pain over time. Results - Ultrasound: Revealed a few remaining kidney stone fragments post-ESWL. Plan 1. Kidney Stones 2. Lower Back Pain 3. BPH - Continue prescribed medication for enlarged prostate. - Prescription to be forwarded to pharmacy in [place]. 01/31/25--Prasanna is a 69-year-old male who is status post Left ESWL on 12/15/2024. The patient is also followed for BPH. History of Present Illness - The patient is a 69-year-old male presenting for follow-up after extracorporeal shock wave lithotripsy (ESWL) for left kidney stone management and ongoing management of benign prostatic hyperplasia. - BPH- proscar 5 mg daily - Nephrolithiasis: The patient underwent ESWL on December 15 for a left kidney stone. - The renal ultrasound on January 262024 showed a reduction in the size of the left kidney stone. - The patient reported passing stone fragments post-procedure, indicating successful fragmentation. - There is a remaining stone on the right side, causing discomfort. Results - Renal ultrasound on January 26 showed a reduction in the size of the left kidney stone, right kidney stone. - CTAP-08/27/24--Nonobstructing stone in the lower pole of the right kidney measuring up to 13 mm. Nonobstructing 16 mm stone in the upper pole of the left kidney. Additional punctate mid kidney stone. Plan - Schedule ESWL for the right kidney stone - Continue monitoring and managing benign prostatic hyperplasia. 09/17/24-- here for office cysto: Cystoscopy findings- enlarged prostate, no suspicious bladder lesions. 69-year-old male presenting with hematuria. Previous evaluation with a CT scan identified nephrolithiasis, specifically kidney stones in both kidneys, with a significant stone in the left kidney. The patient's history includes prior lithotripsy treatment approximately 9-10 years ago. He experiences no urinary tract infections or alterations in voiding patterns. The exam identified benign prostatic hyperplasia, and a 5-alpha reductase inhibitor has been prescribed to address this. The initiation of the medication is indicative of the need to manage the prostatomegaly effectively and reduce any bleeding risks. The patient will undergo subsequent imaging to assess lithotripsy success with follow-ups scheduled accordingly. 09/07/24--Prasanna is a 69 year old male with history of kidney stones. The patient states he has seen Urology in the past and also is followed by nephrology. He states he has passed several stones and has also had lithotripsy procedure over 10 years ago. He currently has had some intermittent left-sided pain. I have reviewed CT imaging there are bilateral kidney stones largest on the left upper pole 16 mm. The patient has had intermittent gross hematuria. I have discussed reasons for blood in the urine may include but are not limited to kidney stones, cancer in the urinary tract, BPH, or inflammatory conditions of the urinary tract. I have discussed that although we know he has kidney stones workup to include cystoscopy evaluation, we will send urine for cytology. CTAP-08/27/24--Nonobstructing stone in the lower pole of the right kidney measuring up to 13 mm. No hydronephrosis or right-sided ureteral stones. Simple appearing left renal cysts measuring up to 3.5 cm for which no specific follow-up necessary. Nonobstructing 16 mm stone in the upper pole of the left kidney. Additional punctate mid kidney stone. [facility] Medical History Renal calculi Diabetes type 2, controlled Chronic kidney disease, stage 3a Essential hypertension Surgical History Hx of cystoscopy History of lithotripsy History of kidney stones Family History Father Heart problem Mother No problems noted. Brother No problems noted. Brother No problems noted. Son No problems noted. Sister No problems noted. Social History Housing: House Patient Tobacco Use Status: Former Tobacco user e-Cigarette/Vaping Use: Never Used Second Hand Smoke Exposure: No service: No Current occupational status: retired Current occupational exposures/hazards: No Cognitive needs: No Hearing needs: No Vision needs: No Results Reviewed Results Reviewed: Laboratory Last Values Urine pH (Auto) 6.0 04/29/25 08:27 Specific [place] (Auto) 1.015 04/29/25 08:27 Urine Protein (Auto) 30 mg/dL 04/29/25 08:27 Glucose (UA)(Auto) 1000 mg/dL 04/29/25 08:27 Urine Ketones (Auto) Negative 04/29/25 08:27 Urine Blood (Auto) 0 Khanh/uL 04/29/25 08:27 Urine Nitrite (Auto) Negative 04/29/25 08:27 Urine Bilirubin (Auto) 0 mg/dL 04/29/25 08:27 Urine Urobilinogen (Auto) 0.2 mg/dL 04/29/25 08:27 Leukocyte Esterase (Auto) 0 Mary/uL 04/29/25 08:27 Assessment & Plan Assessment & Plan (1) Renal calculus: Code(s): N20.0 - Calculus of kidney Category: Medical (2) Hematuria: Code(s): R31.9 - Hematuria, unspecified Category: Medical (3) BPH loc w urin obs/LUTS: Code(s): N40.1 - Benign prostatic hyperplasia with lower urinary tract symptoms Category: Medical Plan Plan 1. Kidney Stones 2. Lower Back Pain 3. BPH - Continue prescribed medication for enlarged prostate. - Prescription to be forwarded to pharmacy in [place]. Orders: Orders AMB Urinalysis Automated 04/29/25 N18.31 - Chronic kidney disease, stage 3a AMB Urinalysis Automated 05/02/25 N18.31 - Chronic kidney disease, stage 3a Medications: Refilled finasteride (Proscar) 5 mg PO DAILY 90 tabs 3RF enlarged prostate Patient Instructions: The patient had an opportunity to ask questions regarding treatment plan. The patient expressed understanding and agreement with the above treatment plan. The patient is aware they should contact our office by phone for worsening of their current condition or the appearance of new symptoms. Compliance is encouraged with any medications and followup testing that is ordered. It is a privilege to be allowed the opportunity to participate in the urologic care of your patient. If you have any questions or concerns regarding treatment for the above conditions please do not hesitate to contact me. The office telephone contact is [phone]. This note is constructed in part using voice recognition software. While every effort has been made to ensure accuracy machine load clerk errors may have been included. Yours sincerely, Serina Goodman MD Scribe Plan - Not visible on output: Patient was informed and verbally consented to the use of an ambient scribe for clinic note documentation during this visit. Coding Level of Care Code Global (18460) Diagnoses Renal calculus N20.0 Hematuria R31.9 BPH loc w urin obs/LUTS N40.1
--- OUTSIDE RECORDS SUMMARY | 2025-04-29 13:56 | XMS_ITS | Clinical Summary ---
Author Organization [facility] Address [address] [facility] [address] [place] [address] Phone Care Team Providers Care Health Sciences Dean Name Role Phone Jim Beavers MD Primary Care Provider [phone]- [phone] Allergies No known active allergies Medications allopurinol [...] to complete this topic Insurance Care Teams Health Sciences Dean Relationship Specialty Start Date End Date Jim Beavers MD [address] [address] PCP - General Family Medicine 07/12/21
== END 2025-04-29 11:54 | disposition home or self-care (01) ==
LOC: HO.HUSH 11:11
PROVIDERS: PCP Family Medicine; Visit Provider Urology
DX: N20.0 Calculus of kidney (principal); R31.9 Hematuria, unspecified; N40.1 Benign prostatic hyperplasia with lower urinary tract symptoms
CPT/HCPCS: 99024

== ENCOUNTER 2025-05-02 08:25 | Outpatient (REF) | payer OTHER, SELFPAY ==
--- OUTSIDE RECORDS SUMMARY | 2025-05-02 08:48 | XMS_ITS | Clinical Summary ---
Author Organization [facility] Address [address] [facility] [address] [place] [address] Phone Care Team Providers Care Legislative Advocate Name Role Phone Jim Beavers MD Primary Care Provider [phone]- [phone] Allergies No known active allergies Medications allopurinol [...] to complete this topic Insurance Care Teams Legislative Advocate Relationship Specialty Start Date End Date Jim Beavers MD [address] [address] PCP - General Family Medicine 07/12/21
== END 2025-05-02 08:26 | disposition home or self-care (01) ==
LOC: HO.LAB 08:25
PROVIDERS: Visit Provider Urology
DX: Z13.89 Encounter for screening for other disorder (principal)

== ENCOUNTER 2025-05-09 10:27 | Outpatient (REF) | payer OTHER, SELFPAY ==
--- OUTSIDE RECORDS SUMMARY | 2025-05-09 12:38 | XMS_ITS | Clinical Summary ---
Author Organization [facility] Address [address] [facility] [address] [place] [address] Phone Care Team Providers Care Desk Director Name Role Phone Jim Beavers MD Primary Care Provider [phone]- [phone] Allergies No known active allergies Medications allopurinol [...] to complete this topic Insurance Care Teams Desk Director Relationship Specialty Start Date End Date Jim Beavers MD [address] [id number] PCP - General Family Medicine 07/12/21
[2025-05-09 14:12] LABS: MANUAL DIFF FLAG NO
[2025-05-09 14:20] LABS: Hematocrit 41.3 % (42.0-52.0); Hemoglobin 13.6 g/dl (14.0-18.0); Imm Gran Abs Auto 0.03 X10*3/uL (0.00-0.03); Imm Gran Pct Auto 0.6 % (0.0-0.4); Lymphocytes Absolute Auto 0.9 X10*3/uL (1.2-4.9); Mean Corpuscular HGB Conc 32.9 g/dl (31.0-36.0); Mean Corpuscular Hemoglobin 30.2 pg (27.0-33.0); Mean Corpuscular Volume 91.8 fL (80.0-98.0); NRBC Abs Auto 0.000 X10*3/uL (0.0-0.012); NRBC Pct Auto 0.0 /100WBC (0.0-0.2); Platelet Count 170 X10*3/uL (160-400); Red Blood Count 4.50 X10*6/uL (4.60-5.80); White Blood Count 4.7 X10*3/uL (4.8-10.8)
[2025-05-09 14:33] LABS: Alanine Aminotransferase 20 U/L (0-40); Albumin Level 4.6 g/dL (3.5-5.0); Alkaline Phosphatase 119 U/L (39-117); Anion Gap 13 (12-20); Aspartate Amino Transferase 29 U/L (5-37); Blood Urea Nitrogen 36 mg/dL (9-16); Calcium 9.4 mg/dL (8.4-10.2); Carbon Dioxide 23 mmol/L (22-29); Chloride 109 mmol/L (96-108); Cholesterol 146 mg/dL (<200); Estimated Glomerular Filt Rate 34; HDL Cholesterol 30 mg/dL (>40); Potassium 4.3 mmol/L (3.3-5.1); Sodium 141 mmol/L (135-145); Total Protein 7.1 g/dL (6.5-8.0); Triglycerides 103 mg/dL (<150)
[2025-05-09 18:41] LABS: Appearance Urine Clear; Glucose Urine UA >=1000 mg/dL (Negative); PH 5.5 (5.0-9.0); Specific Gravity - Urine 1.025 (1.005-1.025); UMIC TRIGGER UA YES; UMIC TRIGGER UACC YES
[2025-05-09 18:44] LABS: Protein/Creatinine Ratio, Ur 0.25 (<0.2); Total Protein Urine Random 30 mg/dL (<12)
[2025-05-09 18:45] LABS: Microalbum/Creatinine Ratio Ur 68.0 ug/mg cr (<30)
[2025-05-09 21:15] LABS: UACC Culture Trigger YES
== END 2025-05-09 10:28 | disposition home or self-care (01) ==
LOC: HO.WFDLDS 10:27
PROVIDERS: Referring Provider Internal Medicine Nephrology; Visit Provider Family Medicine
DX: Z00.00 Encounter for general adult medical examination without abnormal findings (principal); I12.9 Hypertensive chronic kidney disease with stage 1 through stage 4 chronic kidney disease, or unspecified chronic kidney disease; N18.31 Chronic kidney disease, stage 3a; N20.0 Calculus of kidney; R73.01 Impaired fasting glucose; Z12.5 Encounter for screening for malignant neoplasm of prostate
CPT/HCPCS: 36415; 80053; 80061; 81001; 82043; 82570; 83036; 84153; 84156; 84443; 85025; 87086

== ENCOUNTER 2025-05-18 08:49 | Outpatient (AMB) | payer MEDICARE, OTHER, SELFPAY ==
--- NOTE | 2025-05-18 09:00 | MHC.PC.OV ---
Vital Signs 05/18/25 09:08 Height 6 ft 1 in Weight 209 lb BMI 27.6 BP 130/80 Blood Pressure Location Rt brachial Position Sitting Respiration 16 Pulse 89 Pulse Source Pulse Oximeter Temp 97.4 F Temp Source Oral Pulse Oximetry (%) 98 Oxygen Delivery Method Room Air Intake Visit Reasons: CPE with f/u labs and health maint. Intake Note: patient is scheduled for CPE pt completed labs. 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 HPI Details 69 y/o male presents for a CPE with f/u labs and health maint. Labs drawn 05/09/25. Reviewed labs with pt. Mild anemia. A1c 7.4%. He is on glipizide 20mg, Ozempic, metformin 500mg b.i. Triglycerides 103. TC 146. LDL 96. HDL low at 30. PSA 2.75. Reports some nausea. Reports some back pain and notes R foot weakness. [facility] Medical History Renal calculi Diabetes type 2, controlled Chronic kidney disease, stage 3a Essential hypertension Surgical History Hx of cystoscopy History of lithotripsy History of kidney stones Family History Father Heart problem Mother No problems noted. Brother No problems noted. Brother No problems noted. Son No problems noted. Sister No problems noted. Social History Housing: House Patient Tobacco Use Status: Former Tobacco user e-Cigarette/Vaping Use: Never Used Second Hand Smoke Exposure: No service: No Current occupational status: retired Current occupational exposures/hazards: No Cognitive needs: No Hearing needs: No Vision needs: No Questionnaire PHQ-9 Over the last 2 weeks, how often have you been bothered by any of the following problems? 1. Little interest or pleasure in doing things: not at all 2. Feeling down, depressed, or hopeless: not at all 3. Trouble falling or staying asleep, or sleeping too much: not at all 4. Feeling tired or having little energy: not at all 5. Poor appetite or overeating: not at all 6. Feeling bad about yourself - or that you are a failure or have let yourself or your family down: not at all 7. Trouble concentrating on things, such as reading the newspaper or watching television: not at all 8. Moving or speaking so slowly that other people could have noticed. Or the opposite - being so fidgety or restless that you have been moving around a lot more than usual: not at all 9. Thoughts that you would be better off or of hurting yourself in some way: not at all Total score: 0 Depression Screening Interpretation: Negative Depression Screening Done: Yes 20993 - PHQ-9 Billing: Yes Source: Developed by Drs. Satinder Gaffney, Kristi Cedeno, Ryan Austin and colleagues, with an educational milagros from [employer] Thrive Questionnaire Date Thrive assessed: 05/18/25 I am a: Patient What is your living situation today?: I have a steady place to live Within the past 12 months, did the food you bought not last and you didn't have the money to get more?: Never true Within the past 12 months, did you worry whether your food would run out before you got money to buy more?: Never true Do you have trouble paying for medicines?: No Do you have trouble getting transportation to medical appointments?: No Do you have trouble paying your heating and electricity bill?: No Do you have trouble taking care of your child, family member or friend?: No Do you have trouble with day-to-day activities such as bathing, preparing meals, shopping, managing finances, etc.?: No Are you currently unemployed and looking for a job?: No Are you interested in more education?: No Please select the resources that you would like help with: None Currently or been in a relationship where the following occur: No concerns reported THRIVE Score: 0 AUDIT C Alcohol Use Questionnaire (AUDIT-C) 1. How often do you have a drink containing alcohol?: Never 3. How often do you have six or more drinks on one occasion?: Never Total Score: 0 Score Reviewed/Action Taken: Yes FREDI-7 AMB Questionnaire FREDI-7 Date FREDI - 7 assessed: 05/18/25 Feeling nervous, anxious, or on edge: 0 = Not at all Not being able to stop or control worryin = Not at all Worrying too much about different things: 0 = Not at all Trouble relaxin = Not at all Being so restless that it is hard to sit still: 0 = Not at all Becoming easily annoyed or irritable: 0 = Not at all Feeling afraid as if something awful might happen: 0 = Not at all Total FREDI-7 score (0-4 normal; 5-9 mild; 10-14 moderate; 15-21 severe): 0 Source: Developed by Drs. Satinder Gaffney, Kristi Cedeno, Ryan Austin and colleagues, with an educational milagros from [employer] FREDI-7 Assessment Billing FREDI-7 Assessment Tool: FREDI-7 Assessment 75470 Review of Systems Const Denies chills, Denies fatigue, Denies fever(s), Denies headache(s) and Denies weakness Eyes Denies change in vision ENT Denies dizziness, Denies headache(s), Denies hearing loss, Denies nasal congestion, Denies sinus pain, Denies sinus pressure and Denies sore throat Card Denies chest pain, Denies lightheadedness, Denies dyspnea and Denies other (palpitations) Resp Denies cough, Denies dyspnea and Denies wheezing GI Denies abdominal pain, Denies melena, Denies hematochezia, Denies change in bowel habits, Denies dyspepsia and Reports nausea Denies hematuria and Denies dysuria Musc Denies abnormal gait, Denies myalgias, Denies arthralgias, Denies numbness and Denies tingling Skin/Breast Denies rash, Denies unusual bruising and Denies wounds Neuro Denies abnormal gait, Denies dizziness, Denies headache(s), Denies memory loss, Denies numbness, Denies Sensory deficit (Neuro), Denies tingling and Denies weakness Psych Denies anxiety, Denies depression and Denies memory loss Endo Denies cold intolerance, Denies fatigue, Denies heat intolerance, Denies polydipsia and Denies polyuria Bobby/Lymph Denies easy bleeding and Denies easy bruising Aller/Immun Denies wheezing Physical exam (Primary Care) Vital Signs: Last Vital Signs Temp 97.4 F 05/18/25 09:08 Pulse 89 05/18/25 09:08 Resp 16 05/18/25 09:08 BP 130/80 05/18/25 09:08 Pulse Ox 98 05/18/25 09:08 Oxygen Delivery Method Room Air 05/18/25 09:08 BMI result Body Mass Index 27.6 Tobacco/Smoking Status: Tobacco use Status Tobacco use date assessed 05/18/25 05/18/25 09:10 Patient Tobacco Use Status Former Tobacco user 05/18/25 09:01 e-Cigarette/Vaping Use Never Used 05/18/25 09:01 PHQ-9: PHQ-9 Score PHQ-9: Total score 0 05/18/25 09:55 Depression Screening Interpretation: Negative Thrive Assessment: Date of Thrive Assessment Date Thrive assessed 05/18/25 05/18/25 09:10 Currently or been in a relationship where the following occur: No concerns reported Const General: no acute distress, well developed, alert and awake Nutritional Appearance: well nourished Orientation/consciousness: patient oriented x3 HENMT Head: Yes normocephalic and Yes atraumatic Ears: hearing grossly normal bilaterally and TM's normal bilaterally General nose exam: Normal external nose present and Normal nares present Mouth: Normal oral and palatal mucosa present and moist mucous membranes Teeth and gingiva: dentition normal Throat: Yes posterior oropharynx normal Eyes General: appearance normal, both eyes and all related structures Pupils: Equal, round and reactive pupils present and Pupil accommodation reflex normal EOM: EOMs intact bilaterally Neck Neck: Yes normal visual inspection, Yes no lymphadenopathy and Yes trachea midline Thyroid: Thyroid normal Carotids: no bruits Lymphatic: no lymphadenopathy noted Chest Chest palpation & inspection: normal inspection of the chest Resp Effort & Inspection: normal respiratory effort Auscultation: clear to auscultation bilaterally Cardio Rate: regular rate Rhythm: regular rhythm Heart sounds: S1 normal heart sound present, S2 normal heart sound present, no gallops, no murmurs and no rubs Bruits: no abdominal aortic bruits and no carotid bruits GI Palpation (GI): No Abdominal aortic bruit present, Soft to palpation, nontender, No hepatosplenomegaly present and No Rebound tenderness present Auscultation: normal bowel sounds General: Yes no CVA tenderness Back/Spine/Pelvis Back: no CVA tenderness Cervical Spine: cervical ROM normal and No Cervical spine tenderness Thoracic/Lumbar Spine: thoraco-lumbar ROM normal, No pain with thoraco-lumbar ROM, No thoracic spinal tenderness and No lumbar spinal tenderness Skin Lesions: no lesions Rashes: no rashes Trauma: no lacerations or abrasions Wounds: no wounds Nails: normal Neuro Other: Mild r foot weakness with dorsiflexion of R foot General: patient oriented x3 Cranial nerves: Yes Equal, round and reactive pupils present Cognition (Neuro): normal cognition Gait exam (Neuro): Normal gait present Motor exam (neuro): 5/5 motor strength present throughout Sensory Exam: No Sensory deficit (Neuro) Deep tendon reflexes (DTR's): Right patellar reflex intensity grade: 2+ and Left patellar reflex intensity grade: 2+ Extrem General: Yes normal to inspection and No edema Psych Appearance: grossly normal Affect: normal affect Attitude: cooperative Thought process: Normal thought process present Coding Level of Care Code Est Pt Level 5 (85678) Diagnoses Essential hypertension I10 Diabetes type 2, controlled E11.9 Chronic kidney disease, stage 3a N18.31 Nausea R11.0 Low back pain M54.50 Weakness of right foot R29.898 Spina bifida Q05.9 Screening for colon cancer Z12.11 Screening for prostate cancer Z12.5 Adult general medical exam Z00.00 Additional Codes FREDI-7 Assessment Billing - FREDI-7 Assessment Tool: FREDI-7 Assessment 31061 ([id number]) PHQ-9 - 82597 - PHQ-9 Billing: Yes ([id number]) Assessment & Plan Assessment & Plan (1) Essential hypertension: Code(s): I10 - Essential (primary) hypertension Category: Medical Plan: Blood pressure is fairly well controlled. Goal is less than 140/90 Continue current medications (2) Diabetes type 2, controlled: Code(s): E11.9 - Type 2 diabetes mellitus without complications Category: Medical Plan: A1c has climbed to 7.4%. Will increase Ozempic. He will continue Farxiga and glipizide as prescribed Will decrease metformin however as his creatinine level continues to rise. Work on low sugar and starch diet (3) Chronic kidney disease, stage 3a: Comment: following [place] [place] Code(s): N18.31 - Chronic kidney disease, stage 3a Category: Medical Plan: As above, creatinine level continues to rise Decreasing metformin Will recheck at next visit (4) Nausea: Code(s): R11.0 - Nausea Category: Medical Plan: Patient notes worsening nausea since his lithotripsy Denies that this is associated with Ozempic. He can try some ondansetron (5) Low back pain: Code(s): M54.50 - Low back pain, unspecified Category: Medical Plan: Ongoing low back pain with right lower extremity weakness/mild foot drag noticed by his Imaging shows some mild degenerative changes but also spina bifida occulta Will have him seen by Neurology to consider nerve conduction studies Will give him a short course tramadol and he can use acetaminophen as well as topical NSAID Will follow-up at next visit (6) Weakness of right foot: Code(s): R29.898 - Other symptoms and signs involving the musculoskeletal system Category: Medical Plan: As above (7) Spina bifida: Code(s): Q05.9 - Spina bifida, unspecified Category: Medical Plan: As above (8) Screening for colon cancer: Code(s): Z12.11 - Encounter for screening for malignant neoplasm of colon Category: Medical Plan: Followed by Dr. Santana and had colonoscopy about 5 years ago. He says he contacted Dr. Santana recently was told he could follow-up 10 years from prior colonoscopy. Up-to-date and will follow-up in about 5 years (9) Screening for prostate cancer: Code(s): Z12.5 - Encounter for screening for malignant neoplasm of prostate Category: Medical Plan: PSA was within normal range Will continue annual screening Is also followed by Urology for renal stones (10) Adult general medical exam: Code(s): Z00.00 - Encounter for general adult medical examination without abnormal findings Category: Medical Plan: 69-year-old male presents for an extended exam Plan He will return in about 2 months to follow-up renal function. Creatinine level has been rising. I have decrease metformin from 500 mg b.i.d. to 250 mg b.i.d. increase Ozempic to compensate - A1c was 7.4% today as well. Will also follow-up on back pain with mild right lower extremity weakness. I have referred him to Neurology to evaluate further. See a/P. Orders: Referrals Neurology Referral M54.50 - Low back pain, unspecified, Q76.0 - Spina bifida occulta, R29.898 - Other symptoms and signs involving the musculoskeletal system Medications: New tramadol 25 mg (1/2 x 50 mg) PO BID PRN 10 tabs 0RF pain 10 days ondansetron 4 mg PO DAILY PRN 10 tabs 0RF nausea and vomiting 30 days diclofenac sodium 1% (Arthritis Pain (diclofenac)) apply to single knee, ankle, foot; for foot includes sole/toes/top of foot 4 grams topical BID 200 grams 2RF 30 days acetaminophen 750 mg (1.5 x 500 mg) PO Q6H PRN 180 tabs 2RF pain 30 days Changed From semaglutide (Ozempic) 1 mg (0.75 mL) subcut QWEEK 28 days 3 mL 3RF To semaglutide 2 mg (0.75 mL) subcut QWEEK 3 mL 3RF 28 days From metformin 500 mg PO BID 90 days 180 tabs 3RF To metformin 250 mg (1/2 x 500 mg) PO BID 90 tabs 3RF 90 days
[2025-05-18 09:08] VITALS: BP 130/80; PULSE 89; RESP 16; TEMP 36.3; O2SAT 98; BMI 27.6
== END 2025-05-18 09:52 | disposition home or self-care (01) ==
PROVIDERS: PCP Family Medicine; Visit Provider Family Medicine
DX: I10 Essential (primary) hypertension (principal); E11.9 Type 2 diabetes mellitus without complications; N18.31 Chronic kidney disease, stage 3a; Q05.9 Spina bifida, unspecified; M54.50 Low back pain, unspecified; R11.0 Nausea; R29.898 Other symptoms and signs involving the musculoskeletal system; Z12.11 Encounter for screening for malignant neoplasm of colon; Z12.5 Encounter for screening for malignant neoplasm of prostate

== ENCOUNTER → 2025-05-18 08:49 | Outpatient (BNVA) | payer OTHER, SELFPAY | PROVIDERS: PCP Family Medicine; Visit Provider Family Medicine | DX: Z00.00 Encounter for general adult medical examination without abnormal findings (principal); I10 Essential (primary) hypertension; E11.22 Type 2 diabetes mellitus with diabetic chronic kidney disease; I12.9 Hypertensive chronic kidney disease with stage 1 through stage 4 chronic kidney disease, or unspecified chronic kidney disease; N18.31 Chronic kidney disease, stage 3a; R11.0 Nausea; M54.50 Low back pain, unspecified; R29.898 Other symptoms and signs involving the musculoskeletal system; Q05.9 Spina bifida, unspecified | CPT/HCPCS: 96127; 99212 ==